=== PATIENT | male | born 1965 | race African-American/Black ===

== ENCOUNTER 2021-03-18 15:45 | Emergency (ER) | payer MEDICAID, SELFPAY ==
[2021-03-18 15:52] VITALS: BP 156/71; PULSE 50; RESP 18; TEMP 36.5; O2SAT 99; BMI 33.2
--- NOTE | 2021-03-18 16:23 | ED.GENADULT ---
HPI - General Adult General Chief complaint: General Medical Stated complaint: high blood preessure Time Seen by Provider: 03/18/21 16:10 Source: patient Mode of arrival: ambulatory Limitations: no limitations History of Present Illness HPI narrative: 55 y/o male with history of HTN on Toprol XL 25 mg per day presents to the ER for evaluation when he noted his BP to be 199/98 at home this morning. He states he took his BP before taking his medication. He had no chest pain, headache or vision changes at the time. He admits to mild nausea at the time. He has no swelling, SOB. He states his usual blood pressure is in the 150/80's and it has never been this high before. On arrival his BP is 156/71 and HR 50. No dizziness or lightheadedness. MD complaint: high blood pressure Onset (ago): hour(s) Location: abdomen (nausea) Radiation: non-radiation Severity: mild Severity scale (1-10): 3 Pain Consistency: now resolved Relieving factors: medication Exacerbating factors: none Associated symptoms: denies other symptoms Treatments prior to arrival: none Related Data Allergies Allergy/AdvReac Type Severity Reaction Status Date / Time No Known Allergies Allergy Verified 03/18/21 16:06 Review of Systems Review of Systems: Constitutional: No Fever, No Chills ENT/Mouth: No sore throat, No Rhinorrhea, No Swallowing Difficulty Eyes: No Eye Pain, No Swelling, No Redness Cardiovascular: No Chest Pain, No SOB, No Orthopnea, No Edema Respiratory: No Cough, No Sputum, No Wheezing, No dyspnea Gastrointestinal: + Nausea, No Vomiting, No Diarrhea, No abdominal Pain Genitourinary: No Dysuria, No Urinary Frequency, No Hematuria Musculoskeletal: No joint pain, No Myalgias Skin: No Skin Lesions, No rash Neuro: No Weakness, No Numbness, No Dizziness, No Headache Psych: No Anxiety/Panic, No Depression Heme/Lymph: No Bruising, No Lymphadenopathy Endocrine: No Polyuria, No Polydipsia PMFSH Past Medical History Medical History (Updated 03/18/21 @ 16:31 by MAYNOR Ballard) HTN (hypertension) Social History Social History Advance Directives: No Advance Directives Information Provided: No Physical Exam Vital Signs: Vital Signs: Last Vital Signs Temp 97.7 F 03/18/21 15:52 Pulse 50 03/18/21 15:52 Resp 18 03/18/21 15:52 BP 156/71 H 03/18/21 15:52 Pulse Ox 99 03/18/21 15:52 Body Mass Index 33.2 Appearance: Alert. Oriented X3. No acute distress. Eyes: Pupils equal, round and reactive to light. ENT: Pharynx normal. Neck: Normal inspection. Neck supple. CVS: Normal heart rate and rhythm. Pulses normal. Respiratory: No respiratory distress. Breath sounds normal. Abdomen: Soft and nontender. +BS x4 Skin: Skin warm and dry. Normal skin color. Normal skin turgor. No rashes. Extremities: No lower extremity edema. Neuro: Oriented X 3. No motor deficit. No sensory deficit. Steady gait. Course Course Course Narrative: 55 y/o male with known HTN on Toprol XL presenting with asymptomatic severe HTN at home. Significantly improved after taking his medication. He remains asymptomatic and examination is normal. He feels well and offers no complaints but admits to be anxious this morning when he took his BP. No need for further workup at this time. He is stable for discharge home with plan to f/u with his PCP in the office this week. He will monitor BP BID, AFTER taking his Toprol. Advised to come to the ER if he develops signs and symptoms of HTN emergency or any other concerning symptoms. Discharge Plan Discharge Clinical Impression: Hypertension Qualifiers: Hypertension type: essential hypertension Qualified Code(s): I10 - Essential (primary) hypertension Patient Disposition: Home, Self-Care Instructions: DASH Eating Plan (ED), Hypertension (ED) Additional Instructions: Your blood pressure today was much improved - 156/71. Recommend monitoring your blood pressure two times per day at home - once in the morning about 2 hours AFTER you take your medication and again before bed. Keep taking your Metoprolol as prescribed. Keep a record to bring to your doctor. Adhere to DASH diet - information provided. Follow up with your doctor this week. If you develop chest pain, severe headache, vision changes or have persistently elevated blood pressure despite taking your medications call 911 or come back to the ER for further evaluation. Interventions: ED Discharge Assessment Last Done: 03/18/21 16:35 Discharge Date/Time: 03/18/21 16:37
== END 2021-03-18 16:37 | disposition home or self-care (01) ==
PROVIDERS: Emergency Provider Internal Medicine; PCP Internal Medicine
DX: I10 Essential (primary) hypertension (principal); Z79.899 Other long term (current) drug therapy
CPT/HCPCS: 99283

== ENCOUNTER 2021-05-01 08:08 | Emergency (ER) | payer MEDICAID, SELFPAY ==
--- NOTE | ~2021-05-01 | XR_ITS ---
EXAMINATION: XR LUMBOSACRAL SPINE CLINICAL INFORMATION: Trauma COMPARISON: Previous x-ray August 2017 TECHNIQUE: Three views of the lumbosacral spine. FINDINGS: There is mild curvature of the lower lumbar spine to the left. Bone alignment is otherwise normal. No fracture or dislocation is seen. There is multilevel degenerative spondylosis. There is mild disc space narrowing at L4-L5. There is lower lumbar spine facet arthritis and there is mild atherosclerotic. XR/XR lumbar spine 2-3V IMPRESSION: Degenerative changes.
[2021-05-01 08:18] VITALS: BP 165/78; BP 168/88; PULSE 49; PULSE 54; RESP 18; TEMP 36.8; O2SAT 100; O2SAT 97
--- NOTE | 2021-05-01 10:01 | ED_ITS ---
HPI - General Adult General Chief complaint: Extremity Problem Stated complaint: back pain Time Seen by Provider: 05/01/21 09:55 Source: patient and EMS Mode of arrival: EMS Limitations: no limitations History of Present Illness HPI narrative: 55-year-old male with a past medical history of sciatica here with complaints of right sided back pain since yesterday. The patient tells me he lifted a heavy box and felt immediate pain in his low back. Since then he has had increasing pain which radiates down the right leg with intermittent tingling and numbness. he has a history of sciatica and states this feels s imilar. No numbness in the groin. No bowel or bladder incontinence. No fevers or chills. Took Motrin yesterday but has having continued pain today. He is having difficulty with ambulation due to pain Related Data Previous Rx's Medication Instructions Recorded cyclobenzaprine 10 mg PO TID PRN #10 tab 05/01/21 lidocaine [Lidoderm] 1 patch TOPICAL DAILY #15 ea 05/01/21 naproxen 500 mg PO BID PRN #20 tab 05/01/21 Allergies Allergy/AdvReac Type Severity Reaction Status Date / Time No Known Allergies Allergy Verified 03/18/21 16:06 Review of Systems Review of Systems: Yes all other systems are reviewed and are negative Constitutional: Constitutional: Reports no additional constitutional complaints, Denies body ache(s), Denies chills, Denies fever(s), Denies headache(s) and Denies weakness Eyes: Eyes: Reports no additional eye complaints and Denies change in vision ENT: Reports system reviewed and no additional complaints, except as documented, Denies dizziness, Denies headache(s), Denies nasal congestion, Denies nasal discharge and Denies neck pain Cardiovascular: Cardiovascular: Reports no additional cardiovascular complaints, Denies chest pain, Denies leg edema and Denies dyspnea Respiratory: Respiratory: Reports no additional respiratory complaints, Denies cough and Denies dyspnea Gastrointestinal: Gastrointestinal: Reports no additional gastrointestinal complaints, Denies abdominal pain, Denies diarrhea, Denies nausea and Denies vomiting Genitourinary: Genitourinary: Denies urinary incontinence Musculoskeletal: Musculoskeletal: Reports no additional musculoskeletal complaints, Reports back pain, Denies arthralgias, Denies joint swelling, Denies neck pain, Denies numbness and Reports tingling Integumentary/Breasts: Skin/Breast: Reports system reviewed and no additional complaints, except as docu and Denies rash Neurologic: Reports system reviewed and no additional complaints, except as documented, Denies Abnormal speech present, Denies dizziness, Denies headache(s), Denies numbness, Reports tingling and Denies weakness PMFSH Past Medical History Attestation statement: The following information was validated with the patient. Source: old records reviewed Medical History HTN (hypertension) Social History Social History Alcohol intake: never Patient Tobacco Use Status: Never used Tobacco Use of substances other than those prescribed or required for medical reasons: Yes Substance Use Type: Marijuana Advance Directives: No Advance Directives Information Provided: No Physical Exam Vital Signs: Vital Signs: Last Vital Signs Temp 98.2 F 05/01/21 10:57 Pulse 48 L 05/01/21 10:57 Resp 16 05/01/21 10:57 BP 149/85 H 05/01/21 10:57 Pulse Ox 98 05/01/21 10:57 Body Mass Index 30.0 Const: General: cooperative, healthy appearing, comfortable and no acute distress Orientation/consciousness: patient oriented x3 Limitations: no limitations HENMT: Head: Yes normal to inspection Ears: hearing grossly normal bilaterally General nose exam: Normal external nose present Face and sinus: Yes normal facial exam Mouth: Normal oral and palatal mucosa present Throat: Yes posterior oropharynx normal Eyes: General: appearance normal, both eyes and all related structures Pupils: Equal, round and reactive pupils present Neck: Neck: Yes normal visual inspection Chest: Chest palpation & inspection: normal inspection of the chest Resp: Effort & Inspection: normal respiratory effort Auscultation: clear to auscultation bilaterally Cardio: Rate: regular rate Rhythm: regular rhythm Peripheral pulses: Per ipheral pulses 2+ throughout GI: Inspection: Yes normal to inspection Palpation (GI): Soft to palpation and nontender Auscultation: normal bowel sounds Back/Spine/Pelvis: Other: midline tenderness over the lumbar spine with no step-offs or deformities. Pain over the soft tissue lumbar region on the right side with palpable muscle spasm. Pain is worsened with straight leg raise on the right side Thoracic/Lumbar Spine: thoracic and lumbar spine normal to inspection Skin: General skin exam: no rashes or lesions noted Neuro: General: patient oriented x3, no focal motor deficits, normal sensation to monofilament and Unable to assess gait Cranial nerves: Yes CN's II-XII intact bilaterally, Yes Equal, round and reactive pupils present, Yes Bilaterally intact EOM present, Yes Nystagmus not present, Yes Normal facial strength present and Yes Midline tongue present Cognition (Neuro): normal cognition Speech: No Abnormal speech present Gait exam (Neuro): Unable to assess gait Motor exam (neuro): 5/5 motor strength present throughout Sensory Exam: Normal double simultaneous stimulation for sensation Deep tendon reflexes (DTR's): Right patellar reflex intensity grade: 2+, Left patellar reflex intensity grade: 2+, Right ankle reflex intensity grade: 2+ and Left ankle reflex intensity grade: 2+ Coordination: [id number] test normal and [id number] test normal Extrem: General: Yes normal to inspection, Yes no pedal edema and Yes no calf tenderness Course Course Course Narrative: 55-year-old male here with acute on chronic lower back pain with radiation down the right leg after lifting heavy object yesterday now having difficulty with ambulating due to pain. On exam normal neurological exam. He does have tenderness over the mid lumbar spine with no obvious step- offs or deformities. Due to complaints of midline tenderness will check imaging. Will give analgesia and attempt ambulation trial - x-ray show degenerative changes but no bony abnormality. Patient was able to ambulate after a dose of Valium and Toradol in the emergency department is feeling much improved. Exam is consistent with sciatica. No red flag symptoms. No neurological deficits. Will discharge patient home with supportive care. Reviewed worrisome signs and symptoms and when to return to the emergency department. Comfortable discharge home. Medical Decision Making Medical Records Medical records reviewed: Yes I reviewed the patient's medical records. Lab Data Lab results reviewed: Yes I reviewed the patient's lab results. Imaging Data lumba rxray: Attestation: I personally reviewed and interpreted this imaging study as follows: Radiologist's impression: [address] [id number] ReportSigned Patient: Tish Szymanski#: [id number]: 1965Acct:[id number]/Sex: 55 / MADM Date: 05/01/21Loc: HO.EDAttending Dr: Ordering Physician: NANCY CASPER NP Date of Service: 05/01/21 Procedure(s): XR lumbar spine 2-3V Accession Number(s): [id number] cc: NANCY CASPER NP~ EXAMINATION: XR LUMBOSACRAL SPINE CLINICAL INFORMATION: Trauma COMPARISON: Previous x-ray August 2017 TECHNIQUE: Three views of the lumbosacral spine. FINDINGS: There is mild curvature of the lower lumbar spine to the left. Bone alignment is otherwise normal. No fracture or dislocation is seen. There is multilevel degenerative spondylosis. There is mild disc space narrowing at L4-L5. There is lower lumbar spine facet arthritis and there is mild atherosclerotic. XR/XR lumbar spine 2-3V IMPRESSION: Degenerative changes. Discharge Plan Discharge Clinical Impression: Sciatica Qualifiers: Laterality: right Qualified Code(s): M54.31 - Sciatica, right side Patient Disposition: Home, Self-Care Instructions: Sciatica (ED), Lower Back Exercises (ED) Additional Instructions: heat or ice Gentle stretching No heavy lifting or bending Follow-up with your primary care doctor Prescriptions: New cyclobenzaprine 10 mg tablet 10 mg PO TID PRN (Reason: muscle spasm) Qty: 10 RF: 0 naproxen 500 mg tablet 500 mg PO BID PRN (Reason: pain) Qty: 20 RF: 0 lidocaine [Lidoderm] 5 % adhesive patch,medicated 1 patch topical DAILY Qty: 15 RF: 0 Referrals: Keke Encinas MD [Primary Care Provider] - 2 days Interventions: ED Discharge Assessment Last Done: 05/01/21 12:04 Discharge Date/Time: 05/01/21 12:04
[2021-05-01 10:05] VITALS: BP 157/80; PULSE 52; RESP 16; TEMP 36; O2SAT 97
[2021-05-01] MEDS: diazePAM 5 MG TABLET PO (10:14)
[2021-05-01] MEDS: Lidocaine 4 % Patch ADH..PATCH 1 PATCH TRANSDERMA (10:14)
[2021-05-01] MEDS: Ketorolac Tromethamine 60 MG/2 ML VIAL IM (10:15)
[2021-05-01 10:57] VITALS: BP 149/85; PULSE 48; RESP 16; TEMP 36.8; O2SAT 98
== END 2021-05-01 12:04 | disposition home or self-care (01) ==
PROVIDERS: Emergency Provider Emergency Medicine Emergency Medical Services; PCP Internal Medicine
DX: M54.31 Sciatica, right side (principal)
CPT/HCPCS: 72100; 96372; 99284; J1885

== ENCOUNTER 2021-05-10 02:48 | Emergency (ER) | payer MEDICAID, SELFPAY ==
--- NOTE | ~2021-05-10 | XR_ITS ---
EXAMINATION: XR SHOULDER, LEFT CLINICAL INFORMATION: Fall COMPARISON: 11/22/2014 TECHNIQUE: Three views of the left shoulder. FINDINGS: Radiopaque anchors in the left humeral head. No fracture or dislocation. The glenohumeral joint is well aligned with osteophyte formation noted. This has progressed since 2014. Chronic irregularity of the acromioclavicular joint with corticated ossification seen. The visualized lung is clear. The visualized ribs are intact. XR/XR shoulder LT min 2V IMPRESSION: No acute fracture or malalignment. Chronic changes at the acromioclavicular and glenohumeral joints.
[2021-05-10 03:23] VITALS: BP 172/86; PULSE 52; RESP 20; TEMP 36; O2SAT 96; BMI 35.4
--- NOTE | 2021-05-10 03:43 | ED.UPPEXIN ---
HPI - Extremity Injury (Upper) General Chief Complaint: Fall Stated Complaint: Fallen on shoulder yesterday Time Seen by Provider: 05/10/21 03:43 Source: patient Mode of arrival: ambulatory Limitations: no limitations History of Present Illness HPI narrative: patient's history of left rotator cuff surgery in the past was trying to sit putting his left hand to the stool but slipped and fell yesterday since then pain in left shoulder has increased patient able to abduct left arm significant pain no other injuries no numbness or tingling Related Data Previous Rx's Medication Instructions Recorded cyclobenzaprine 10 mg PO TID PRN #10 tab 05/01/21 lidocaine [Lidoderm] 1 patch TOPICAL DAILY #15 ea 05/01/21 naproxen 500 mg PO BID PRN #20 tab 05/01/21 oxycodone-acetaminophen [Percocet] 1 tab PO Q6H PRN #20 tab 05/10/21 Allergies Allergy/AdvReac Type Severity Reaction Status Date / Time No Known Allergies Allergy Verified 03/18/21 16:06 Review of Systems Review of Systems: Yes all other systems are reviewed and are negative [facility] Past Medical History Medical History HTN (hypertension) Social History Social History Alcohol intake: never Patient Tobacco Use Status: Never used Tobacco Substance Use Type: Marijuana Advance Directives: No Advance Directives Information Provided: No Physical Exam Vital Signs: Vital Signs: Last Vital Signs Temp 96.8 F 05/10/21 03:23 Pulse 52 05/10/21 03:23 Resp 20 05/10/21 03:23 BP 172/86 H 05/10/21 03:23 Pulse Ox 96 05/10/21 03:23 Body Mass Index 35.4 Const: General: comfortable HENMT: Head: Yes normocephalic Extrem: Shoulder/upper arm images: 1. diffuse tenderness L rotator cuff increased on abduction and external rotation neurovascular intact MDM - Extremity Injury (Upper) MDM Narrative Medical decision making narrative: patient with left rotator cuff tendonitis x-ray negative for any fracture left arm sling was applied advised patient to follow with orthopedic for further evaluation including MRI Discharge Plan Discharge Clinical Impression: Rotator cuff injury Qualifiers: Encounter type: initial encounter Laterality: left Qualified Code(s): S46.002A - Unspecified injury of muscle(s) and tendon(s) of the rotator cuff of left shoulder, initial encounter Patient Disposition: Home, Self-Care Instructions: Rotator Cuff Injury (ED) Additional Instructions: Rest to the left shoulder. Apply ice. Wear sling. Pain medication as prescribed. Follow-up with Orthopedics Prescriptions: New oxycodone-acetaminophen [Percocet] 5-325 mg tablet 1 tab PO Q6H PRN (Reason: pain) Qty: 20 RF: 0 No Action cyclobenzaprine 10 mg tablet 10 mg PO TID PRN (Reason: muscle spasm) Qty: 10 RF: 0 naproxen 500 mg tablet 500 mg PO BID PRN (Reason: pain) Qty: 20 RF: 0 lidocaine [Lidoderm] 5 % adhesive patch,medicated 1 patch topical DAILY Qty: 15 RF: 0 Referrals: Cullen Emerson MD [Physician] - 1 week Interventions: ED Discharge Assessment Last Done: 05/10/21 04:41 Discharge Date/Time: 05/10/21 04:43
[2021-05-10] MEDS: oxyCODONE HCl Immed Release 5 MG TABLET 10 MG PO (04:07)
== END 2021-05-10 04:43 | disposition home or self-care (01) ==
PROVIDERS: Emergency Provider Internal Medicine
DX: S46.002A Unspecified injury of muscle(s) and tendon(s) of the rotator cuff of left shoulder, initial encounter (principal); I10 Essential (primary) hypertension; W01.0XXA Fall on same level from slipping, tripping and stumbling without subsequent striking against object, initial encounter; Y93.9 Activity, unspecified; Y92.9 Unspecified place or not applicable; Y99.9 Unspecified external cause status
CPT/HCPCS: 73030; 99283

== ENCOUNTER 2021-05-22 13:50 | Outpatient (REF) | payer MEDICAID, SELFPAY ==
--- NOTE | ~2021-05-22 | XR_ITS ---
EXAMINATION: XR HAND, RIGHT XR HAND, LEFT CLINICAL INFORMATION: Right and left hand pain. COMPARISON: None. TECHNIQUE: AP, oblique, and lateral views of the right and left hand. FINDINGS: Right Hand: Joint space narrowing with marginal osteophytes redemonstrated at the 3rd proximal interphalangeal joint. More mild degenerative arthritis throughout the interphalangeal joints, slightly progressed. No acute fracture or dislocation. No osseous erosion. Left Hand: Joint space narrowing with marginal osteophytes at the 2nd proximal interphalangeal joint. Additional small marginal osteophytes throughout the interphalangeal joints. Findings have slightly progressed when compared to the prior examination. No fracture or dislocation. No osseous erosion. XR/XR hand LT min 3V IMPRESSION: RIGHT HAND: Degenerative arthritis throughout the interphalangeal joints, most prominent at the 3rd proximal interphalangeal joint, slightly progressed. LEFT HAND: Degenerative arthritis throughout the interphalangeal joints, most prominent at the 2nd proximal interphalangeal joint, slightly progressed.
--- NOTE | ~2021-05-22 | XR_ITS ---
EXAMINATION: XR HAND, RIGHT XR HAND, LEFT CLINICAL INFORMATION: Right and left hand pain. COMPARISON: None. TECHNIQUE: AP, oblique, and lateral views of the right and left hand. FINDINGS: Right Hand: Joint space narrowing with marginal osteophytes redemonstrated at the 3rd proximal interphalangeal joint. More mild degenerative arthritis throughout the interphalangeal joints, slightly progressed. No acute fracture or dislocation. No osseous erosion. Left Hand: Joint space narrowing with marginal osteophytes at the 2nd proximal interphalangeal joint. Additional small marginal osteophytes throughout the interphalangeal joints. Findings have slightly progressed when compared to the prior examination. No fracture or dislocation. No osseous erosion. XR/XR hand RT min 3V IMPRESSION: RIGHT HAND: Degenerative arthritis throughout the interphalangeal joints, most prominent at the 3rd proximal interphalangeal joint, slightly progressed. LEFT HAND: Degenerative arthritis throughout the interphalangeal joints, most prominent at the 2nd proximal interphalangeal joint, slightly progressed.
[2021-05-22 15:27] LABS: MANUAL DIFF FLAG NO
[2021-05-22 15:30] LABS: Basophils Percent Auto 0.4 % (0-2); Eosinophils Absolute Auto 0.1 X10*3/uL (0.0-0.4); Eosinophils Percent Auto 1.4 % (0-4); Hematocrit 45.6 % (42-52); Hemoglobin 15.2 g/dl (14.0-18.0); Imm Gran Abs Auto 0.02 X10*3/uL (0.00-0.03); Imm Gran Pct Auto 0.3 % (0.0-0.4); Lymphocytes Absolute Auto 1.8 X10*3/uL (1.2-4.9); Lymphocytes Percent Auto 23.3 % (20-40); Mean Corpuscular HGB Conc 33.3 g/dl (31.0-36.0); Mean Corpuscular Hemoglobin 32.1 pg (27.0-33.0); Mean Corpuscular Volume 96.4 fL (80-98); Mean Platelet Volume 10.7 fL (9.4-12.4); Monocytes Absolute Auto 0.7 X10*3/uL (0.1-1.2); Monocytes Percent Auto 8.4 % (2-11); Neutrophils Absolute Auto 5.2 X10*3/uL (2.0-8.3); Neutrophils Percent Auto 66.2 % (45-73); Platelet Count 203 X10*3/uL (160-400); Red Blood Count 4.73 X10*6/uL (4.60-5.80); Red Cell Distribution Width 12.6 % (11.0-16.0); White Blood Count 7.9 X10*3/uL (4.8-10.8)
[2021-05-22 15:51] LABS: Alanine Aminotransferase 66 U/L (0-40); Albumin Level 4.2 g/dL (3.5-5.0); Alkaline Phosphatase 98 U/L (39-117); Anion Gap 12 (12-20); Aspartate Amino Transferase 21 U/L (5-37); Bilirubin Total 0.7 mg/dL (0.0-1.0); Blood Urea Nitrogen 14 mg/dL (9-16); C Reactive Protein 0.28 mg/dL (< or = 0.50); Calcium 9.6 mg/dL (8.4-10.2); Carbon Dioxide 28 mmol/L (22-29); Chloride 103 mmol/L (96-108); Estimated Glomerular Filt Rate > 60; Glucose Random 97 mg/dL (60-115); Potassium 4.5 mmol/L (3.3-5.1); Sodium 138 mmol/L (135-145); Total Protein 7.2 g/dL (6.5-8.0)
[2021-05-22 16:01] LABS: Rheumatoid Factor 19.7 IU/mL (<15.0)
[2021-05-22 16:10] LABS: Erythrocyte Sedimentation Rate 2 MM/HR (0-15)
[2021-05-23 16:46] LABS: Cyclic Citrullinated Peptide <16 UNITS
== END 2021-05-22 13:51 | disposition home or self-care (01) ==
LOC: HO.XRAY 13:50
PROVIDERS: PCP Internal Medicine; Visit Provider Student in an Organized Health Care Education/Training Program
DX: M79.641 Pain in right hand (principal); M79.642 Pain in left hand; M25.50 Pain in unspecified joint; Z79.899 Other long term (current) drug therapy; Z79.891 Long term (current) use of opiate analgesic
CPT/HCPCS: 36415; 73130; 80053; 85025; 85652; 86140; 86200; 86431; 99202

== ENCOUNTER 2021-05-24 08:07 | Outpatient (REF) | payer MEDICAID, SELFPAY | END 2021-05-24 08:08 | disposition home or self-care (01) | LOC: HO.HOSX 08:07 | PROVIDERS: Visit Provider Physician Assistant | DX: Z13.89 Encounter for screening for other disorder (principal) ==

== ENCOUNTER → 2021-05-25 07:54 | Outpatient (BNVA) | payer MEDICAID, SELFPAY | PROVIDERS: Visit Provider Orthopaedic Surgery | DX: S49.92XA Unspecified injury of left shoulder and upper arm, initial encounter (principal); M75.102 Unspecified rotator cuff tear or rupture of left shoulder, not specified as traumatic; M12.812 Other specific arthropathies, not elsewhere classified, left shoulder | CPT/HCPCS: 20610; 99202; J1040 ==

== ENCOUNTER 2021-06-06 07:47 | Outpatient (REF) | payer MEDICAID, SELFPAY | END 2021-06-06 07:48 | disposition home or self-care (01) | LOC: HO.HOSX 07:47 | PROVIDERS: Visit Provider Orthopaedic Surgery | DX: Z13.89 Encounter for screening for other disorder (principal) ==

== ENCOUNTER → 2021-08-27 10:18 | Outpatient (BNVA) | payer MEDICAID, SELFPAY | PROVIDERS: PCP Internal Medicine; Visit Provider Nurse Practitioner Family | DX: M79.641 Pain in right hand (principal); M79.642 Pain in left hand | CPT/HCPCS: 99212 ==

== ENCOUNTER 2021-08-28 07:28 | Outpatient (REF) | payer MEDICAID, SELFPAY ==
[2021-08-28 08:50] LABS: Alanine Aminotransferase 17 U/L (0-40); Albumin Level 3.9 g/dL (3.5-5.0); Alkaline Phosphatase 95 U/L (39-117); Anion Gap 11 (12-20); Aspartate Amino Transferase 13 U/L (5-37); Bilirubin Total 0.4 mg/dL (0.0-1.0); Blood Urea Nitrogen 16 mg/dL (9-16); Calcium 9.1 mg/dL (8.4-10.2); Carbon Dioxide 25 mmol/L (22-29); Chloride 106 mmol/L (96-108); Estimated Glomerular Filt Rate > 60; Glucose Random 109 mg/dL (60-115); Potassium 4.3 mmol/L (3.3-5.1); Sodium 138 mmol/L (135-145); Total Protein 6.7 g/dL (6.5-8.0)
[2021-08-28 09:15] LABS: HBc Num1 0.08 S/CO (0.00-0.79); HBsAGNum1 0.15 S/CO (0.00-0.99); Hepatitis B Core Antibody Nonreactive (Nonreactive); Hepatitis B Surface Antigen Negative (Negative); ~Hepatitis B Surface Antibody NONREACTIVE (Nonreactive)
[2021-08-28 14:15] LABS: ~HepC Num1 0.06 S/CO (0.00-0.79); ~Hepatitis C Antibody Nonreactive (Nonreactive)
[2021-08-29 08:21] LABS: Hepatitis A Antibody IgM 0.57 Index (0-0.79); ~Hepatitis A Antibody IgM Nonreactive (Nonreactive)
[2021-08-30 16:00] LABS: TS Negative Control Passed; TS Panel A 4; TS Panel B 1; TS Positive Control Passed; TSpotTB Negative (Negative)
== END 2021-08-28 07:29 | disposition home or self-care (01) ==
LOC: HO.LAB 07:28
PROVIDERS: PCP Internal Medicine; Visit Provider Nurse Practitioner Family
DX: Z01.84 Encounter for antibody response examination (principal); Z11.1 Encounter for screening for respiratory tuberculosis; Z11.59 Encounter for screening for other viral diseases; M79.641 Pain in right hand; M79.642 Pain in left hand; R79.89 Other specified abnormal findings of blood chemistry
CPT/HCPCS: 36415; 80053; 86481; 86704; 86706; 86709; 86803; 87340

== ENCOUNTER 2021-09-12 15:43 | Outpatient (REF) | payer MEDICAID, SELFPAY ==
--- NOTE | ~2021-09-12 | MR_ITS ---
EXAMINATION: MRI HAND WITHOUT AND WITH CONTRAST, RIGHT CLINICAL INFORMATION: Finger swelling and pain. COMPARISON: Most recent right hand radiographs dated 05/22/2021. TECHNIQUE: Multisequence MR imaging of the right hand was performed before and after the administration of 10 mL Gadavist IV contrast on a high-field strength scanner. FINDINGS: BONE: No marrow edema. No evidence of acute osseous injury. No fracture or dislocation. No osseous erosion or post contrast enhancement. Articular cartilage loss with joint space narrowing and marginal osteophytes at the 1st metacarpophalangeal joint as well as scattered throughout the interphalangeal joints. Findings are similar when compared to the prior radiographs. MUSCLES/TENDONS: Mild fluid within the 3rd, 4th, and 5th flexor tendon sheaths as well as the proximal aspect of the extensor digitorum tendon sheath, consistent with mild tenosynovitis. No measurable tendon defect. LIGAMENTS: The collateral ligaments are grossly intact. SOFT TISSUES: No abnormal soft tissue mass or fluid collection. Mild dorsal subcutaneous edema. MR/MR hand RT wo/w con IMPRESSION: 1. 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 No osseous erosion or abnormal osseous enhancement. 2. Mild tenosynovitis within the 3rd, 4th, and 5th flexor tendons as well as the proximal aspect of the extensor digitorum tendons. No measurable tendon defect. 3. Mild dorsal subcutaneous edema.
--- NOTE | ~2021-09-12 | MR_ITS ---
EXAMINATION: MR HAND WITHOUT AND WITH CONTRAST, LEFT CLINICAL INFORMATION: Left hand pain and swelling. COMPARISON: Most recent left hand radiographs dated 05/22/2021. TECHNIQUE: Multisequence MR imaging of the left hand was performed before and after the administration of 10 mL Gadavist IV contrast on a high-field strength scanner. FINDINGS: BONE: No abnormal marrow signal. No marrow edema or postcontrast enhancement. No fracture or dislocation. Articular cartilage loss with small marginal osteophytes at the first metacarpophalangeal joint as well as scattered throughout the interphalangeal joints. No osseous erosion. MUSCLES/TENDONS: Mild fluid within the second and third flexor tendon sheaths, consistent with mild tenosynovitis. No measurable tendon defect. LIGAMENTS: The collateral ligaments are intact. SOFT TISSUES: Mild dorsal subcutaneous edema. No abnormal soft tissue mass or fluid collection. MR/MR hand LT wo/w con IMPRESSION: 1. Mild osteoarthritis at the first metacarpophalangeal joint as well as scattered throughout the interphalangeal joints. No osseous erosion or abnormal marrow enhancement. 2. Mild tenosynovitis of the second and third flexor tendons. No measurable tendon defect. 3. Mild dorsal subcutaneous edema.
== END 2021-09-12 15:44 | disposition home or self-care (01) ==
LOC: HO.MRI 15:43
PROVIDERS: Visit Provider Nurse Practitioner Family
DX: M79.641 Pain in right hand (principal); M79.642 Pain in left hand; R76.8 Other specified abnormal immunological findings in serum
CPT/HCPCS: 73220; A9585

== ENCOUNTER 2021-09-16 18:33 | Emergency (ER) | payer MEDICAID, SELFPAY ==
--- NOTE | 2021-09-16 18:41 | ECG_ITS ---
Test Reason : ETOH Blood Pressure : / mmHG Vent. Rate : 064 BPM Atrial Rate : 064 BPM P-R Int : 226 ms QRS Dur : 100 ms QT Int : 380 ms P-R-T Axes : 048 -24 -03 degrees QTc Int : 392 ms Sinus rhythm with 1st degree A-V block Otherwise normal ECG When compared with ECG of 27-JAN-2020 00:52, No significant change was found Referred By: Chelsie Caldera Electronically Signed By:CARLOS BUCHANAN MD
--- NOTE | 2021-09-16 18:42 | ED.WEAKNESS ---
HPI - Weakness General Chief complaint: ETOH/Substance Use Stated complaint: etoh Time Seen by Provider: 09/16/21 18:41 Source: patient and EMS Mode of arrival: EMS Limitations: no limitations History of Present Illness HPI Narrative: sleepy ? drank after work today patient did not eat and was watching the game. He also smoked THC. EMS noted he vomited x 1 and then woke up more he has no complaints now i think I had a panic attack MD Complaint: lack of energy (?panic attack) Onset (ago): hour(s) (1) Duration: improved Migration: none Severity: moderate Relieving factors: rest Exacerbating factors: other (not eating) Context: other (drank beer and smoked THC after work did not eat) Associated symptoms: nausea/vomiting (x1) Related Data Home Medications Medication Instructions Recorded Confirmed lisinopril 5 mg tablet 5 mg PO DAILY 05/22/21 05/22/21 metoprolol succinate 25 mg 25 mg PO DAILY 05/22/21 05/22/21 tablet,extended release 24 hr Previous Rx's Medication Instructions Recorded cyclobenzaprine 10 mg tablet 10 mg PO TID PRN #10 tab 05/01/21 lidocaine 5 % topical patch 1 patch TOPICAL DAILY #15 ea 05/01/21 (Lidoderm) naproxen 500 mg tablet 500 mg PO BID PRN #20 tab 05/01/21 ibuprofen 800 mg tablet 800 mg PO Q8H #90 tab 05/25/21 Allergies Allergy/AdvReac Type Severity Reaction Status Date / Time No Known Allergies Allergy Verified 08/27/21 10:35 Review of Systems Review of Systems: Constitutional : No Weight loss, No Fever, No Chills ENT/Mouth : No sore throat, No Rhinorrhea Eyes: No Swelling, No Redness Cardiovascular : No Chest Pain, No SOB, NoEdema Respiratory : No Cough, No Sputum, No Wheezing Gastrointestinal : Positive Nausea, Positive Vomiting, no Diarrhea, no abdominal Pain, No Hematochezia, No Melena Genitourinary : No Dysuria, No Urinary Frequency, No Hematuria, No Urgency Musculoskeletal : No joint pain, No Myalgias, No Joint Swelling Skin : No Skin Lesions, No rash Neuro : No Weakness, No Numbness, No Dizziness, No Headache Psych : pos Anxiety/Panic, No Depression Heme/Lymph: No Bruising, No Lymphadenopathy Endocrine : No Polyuria, No Polydipsia All other systems reviewed and are negative. [facility] Past Medical History Attestation statement: The following information was validated with the patient. Medical History HTN (hypertension) Surgical History H/O knee surgery H/O shoulder surgery Family History Family History Mother HTN (hypertension) Sister Esophagus cancer Social History Social History Alcohol intake: current Patient Tobacco Use Status: Never used Tobacco Use of substances other than those prescribed or required for medical reasons: No Substance Use Type: Marijuana Advance Directives: No Advance Directives Information Provided: No Current occupational status: unemployed Current occupation: rt handed Physical Exam Vital Signs: Vital Signs: Last Vital Signs Temp 98.9 F 09/16/21 18:44 Pulse 61 09/16/21 19:14 Resp 16 09/16/21 19:14 BP 113/69 09/16/21 19:14 Pulse Ox 98 09/16/21 19:14 Body Mass Index 35.9 Appearance: Alert. Oriented X3. No acute distress. Eyes: Pupils equal, round and reactive to light. ENT: Pharynx normal. Neck: Normal inspection. Neck supple. CVS: Normal heart rate and rhythm. Pulses normal. Respiratory: No respiratory distress. Breath sounds normal. Abdomen: Soft and nontender. Skin: Skin warm and dry. Normal skin color. Normal skin turgor. Extremities: No lower extremity edema. No calf ttp Neuro: Oriented X 3. No motor deficit. No sensory deficit. 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 He was watching the game felt like he was panicking and had nausea - his family felt he was sleepy and called 911. He feels nauseated at this time. No neuro findings. No CP/SOB. I suspect that he feels this way due to his drinking and THC use after not eating - will obtain EKG and basic labs. Lab Data Result diagrams: 09/16/21 19:09 09/16/21 19:09 Labs: Lab Results 09/16/21 09/16/21 09/16/21 Range/Units 19:09 19:09 19:09 WBC 7.1 (4.8-10.8) X10*3/uL RBC 4.69 (4.60-5.80) X10*6/uL Hgb 15.1 (14.0-18.0) g/dl Hct 44.7 (42.0-52.0) % MCV 95.3 (80.0-98.0) fL MCH 32.2 (27.0-33.0) pg MCHC 33.8 (31.0-36.0) g/dl RDW 13.1 (11.0-16.0) % Plt Count 192 (160-400) X10*3/uL MPV 9.1 L (9.4-12.4) fL Immature Gran % (Auto) 0.3 (0.0-0.4) % Neut % (Auto) 73.2 H (45-73) % Lymph % (Auto) 18.8 L (20-40) % Yell % (Auto) 5.5 (2-11) % Eos % (Auto) 1.8 (0-4) % Baso % (Auto) 0.4 (0-2) % Lymph # (Auto) 1.3 (1.2-4.9) X10*3/uL Yell # (Auto) 0.4 (0.1-1.2) X10*3/uL Eos # (Auto) 0.1 (0.0-0.4) X10*3/uL Baso # (Auto) 0.0 (0.0-0.2) X10*3/uL Abs Immat Gran (auto) 0.02 (0.00-0.03) X10*3/uL Absolute Neuts (auto) 5.2 (2.0-8.3) x10*3/uL Absolute Nucleated RBC 0.000 (0.0-0.012) X10*3/uL Nucleated RBC % (auto) 0.0 (0.0-0.2) /100WBC Sodium 140 (135-145) mmol/L Potassium 3.8 (3.3-5.1) mmol/L Chloride 106 (96-108) mmol/L Carbon Dioxide 25 (22-29) mmol/L Anion Gap 13 (12-20) BUN 13 (9-16) mg/dL Creatinine 0.84 (0.5-1.4) mg/dL Estim Creat Clear Calc 131.4 Estimated GFR > 60 Random Glucose 92 (60-115) mg/dL Calcium 8.7 (8.4-10.2) mg/dL Magnesium 2.2 (1.6-2.6) mg/dL Total Bilirubin 0.3 (0.0-1.0) mg/dL Direct Bilirubin 0.2 (0.0-0.5) mg/dL AST 17 (5-37) U/L ALT 33 (0-40) U/L Alkaline Phosphatase 85 (39-117) U/L Total Protein 6.9 (6.5-8.0) g/dL Albumin 4.1 (3.5-5.0) g/dL Ethyl Alcohol mg/dL COVID-19 (DANICA) Negative (Negative) COVID-19 Clin Com See Note 09/16/21 Range/Units 19:09 WBC (4.8-10.8) X10*3/uL RBC (4.60-5.80) X10*6/uL Hgb (14.0-18.0) g/dl Hct (42.0-52.0) % MCV (80.0-98.0) fL MCH (27.0-33.0) pg MCHC (31.0-36.0) g/dl RDW (11.0-16.0) % Plt Count (160-400) X10*3/uL MPV (9.4-12.4) fL Immature Gran % (Auto) (0.0-0.4) % Neut % (Auto) (45-73) % Lymph % (Auto) (20-40) % Yell % (Auto) (2-11) % Eos % (Auto) (0-4) % Baso % (Auto) (0-2) % Lymph # (Auto) (1.2-4.9) X10*3/uL Yell # (Auto) (0.1-1.2) X10*3/uL Eos # (Auto) (0.0-0.4) X10*3/uL Baso # (Auto) (0.0-0.2) X10*3/uL Abs Immat Gran (auto) (0.00-0.03) X10*3/uL Absolute Neuts (auto) (2.0-8.3) x10*3/uL Absolute Nucleated RBC (0.0-0.012) X10*3/uL Nucleated RBC % (auto) (0.0-0.2) /100WBC Sodium (135-145) mmol/L Potassium (3.3-5.1) mmol/L Chloride (96-108) mmol/L Carbon Dioxide (22-29) mmol/L Anion Gap (12-20) BUN (9-16) mg/dL Creatinine (0.5-1.4) mg/dL Estim Creat Clear Calc Estimated GFR Random Glucose (60-115) mg/dL Calcium (8.4-10.2) mg/dL Magnesium (1.6-2.6) mg/dL Total Bilirubin (0.0-1.0) mg/dL Direct Bilirubin (0.0-0.5) mg/dL AST (5-37) U/L ALT (0-40) U/L Alkaline Phosphatase (39-117) U/L Total Protein (6.5-8.0) g/dL Albumin (3.5-5.0) g/dL Ethyl Alcohol 224 mg/dL COVID-19 (DANICA) (Negative) COVID-19 Clin Com ECG Data Attestation: I personally reviewed and interpreted this ECG as follows: ECG interpretation date: 09/16/21 ECG interpretation time: 19:02 Interpretation: Rate: 64 Rhythm: NSR with 1st degree AVB [place]: left Normal P waves. Normal RAMILA. Normal QRS complex. ST T wave : normal no TOY qTC: normal prior studies: no acute ischemia The study has been interpreted contemporaneously by me. . Discharge Plan Discharge Clinical Impression: Alcoholic intoxication Patient Disposition: Home, Self-Care Instructions: Alcohol Intoxication (ED) Additional Instructions: return to ED for any worsening symptoms or concerns Prescriptions: No Action cyclobenzaprine 10 mg tablet 10 mg PO TID PRN (Reason: muscle spasm) Qty: 10 RF: 0 naproxen 500 mg tablet 500 mg PO BID PRN (Reason: pain) Qty: 20 RF: 0 lidocaine [Lidoderm] 5 % adhesive patch,medicated 1 patch topical DAILY Qty: 15 RF: 0 lisinopril 5 mg tablet 5 mg PO DAILY RF: 0 metoprolol succinate 25 mg tablet extended release 24 hr 25 mg PO DAILY RF: 0 ibuprofen 800 mg tablet 800 mg PO Q8H Qty: 90 RF: 3 Stand Alone Forms: Work/School Release
[2021-09-16 18:44] VITALS: BP 131/79; BP 132/68; PULSE 62; PULSE 65; RESP 18; TEMP 37.2; O2SAT 93; O2SAT 94; BMI 35.9
[2021-09-16 19:14] VITALS: BP 113/69; PULSE 61; RESP 16; O2SAT 98
[2021-09-16 19:14] LABS: MANUAL DIFF FLAG NO
[2021-09-16 19:16] LABS: Basophils Percent Auto 0.4 % (0-2); Eosinophils Absolute Auto 0.1 X10*3/uL (0.0-0.4); Eosinophils Percent Auto 1.8 % (0-4); Hematocrit 44.7 % (42.0-52.0); Hemoglobin 15.1 g/dl (14.0-18.0); Imm Gran Abs Auto 0.02 X10*3/uL (0.00-0.03); Imm Gran Pct Auto 0.3 % (0.0-0.4); Lymphocytes Absolute Auto 1.3 X10*3/uL (1.2-4.9); Lymphocytes Percent Auto 18.8 % (20-40); Mean Corpuscular HGB Conc 33.8 g/dl (31.0-36.0); Mean Corpuscular Hemoglobin 32.2 pg (27.0-33.0); Mean Corpuscular Volume 95.3 fL (80.0-98.0); Mean Platelet Volume 9.1 fL (9.4-12.4); Monocytes Absolute Auto 0.4 X10*3/uL (0.1-1.2); Monocytes Percent Auto 5.5 % (2-11); Neutrophils Absolute Auto 5.2 x10*3/uL (2.0-8.3); Neutrophils Percent Auto 73.2 % (45-73); Platelet Count 192 X10*3/uL (160-400); Red Blood Count 4.69 X10*6/uL (4.60-5.80); Red Cell Distribution Width 13.1 % (11.0-16.0); White Blood Count 7.1 X10*3/uL (4.8-10.8)
[2021-09-16] MEDS: Ondansetron ODT 4 MG TAB.RAPDIS TRANSLINGU (19:17)
[2021-09-16 19:31] LABS: COVID-19 Test Negative (Negative)
[2021-09-16 19:35] LABS: Ethanol 224 mg/dL
[2021-09-16 19:39] LABS: Alanine Aminotransferase 33 U/L (0-40); Albumin Level 4.1 g/dL (3.5-5.0); Alkaline Phosphatase 85 U/L (39-117); Anion Gap 13 (12-20); Aspartate Amino Transferase 17 U/L (5-37); Bilirubin Direct 0.2 mg/dL (0.0-0.5); Bilirubin Total 0.3 mg/dL (0.0-1.0); Blood Urea Nitrogen 13 mg/dL (9-16); Calcium 8.7 mg/dL (8.4-10.2); Carbon Dioxide 25 mmol/L (22-29); Chloride 106 mmol/L (96-108); Creatinine Clr Calc Pharmacy 131.4; Estimated Glomerular Filt Rate > 60; Glucose Random 92 mg/dL (60-115); Magnesium 2.2 mg/dL (1.6-2.6); Potassium 3.8 mmol/L (3.3-5.1); Sodium 140 mmol/L (135-145); Total Protein 6.9 g/dL (6.5-8.0)
== END 2021-09-16 19:58 | disposition home or self-care (01) ==
PROVIDERS: Emergency Provider Emergency Medicine
DX: F10.129 Alcohol abuse with intoxication, unspecified (principal); Y90.7 Blood alcohol level of 200-239 mg/100 ml; F12.90 Cannabis use, unspecified, uncomplicated; I10 Essential (primary) hypertension; Z20.822 Contact with and (suspected) exposure to COVID-19
CPT/HCPCS: 36415; 80048; 80076; 82077; 83735; 85025; 87635; 93005; 99283; 99285

== ENCOUNTER → 2021-11-14 07:39 | Outpatient (BNVA) | payer MEDICAID, SELFPAY | PROVIDERS: PCP Internal Medicine; Visit Provider Nurse Practitioner Family | DX: M06.9 Rheumatoid arthritis, unspecified (principal) | CPT/HCPCS: 99212 ==

== ENCOUNTER → 2021-11-20 08:56 | Outpatient (BNVA) | payer MEDICAID, SELFPAY | PROVIDERS: PCP Internal Medicine; Visit Provider Nurse Practitioner Family ==

== ENCOUNTER 2022-01-08 08:38 | Outpatient (REF) | payer MEDICAID, SELFPAY ==
[2022-01-08 09:05] LABS: MANUAL DIFF FLAG NO
[2022-01-08 09:14] LABS: Basophils Percent Auto 0.5 % (0-2); Eosinophils Absolute Auto 0.1 X10*3/uL (0.0-0.4); Eosinophils Percent Auto 1.4 % (0-4); Hematocrit 45.2 % (42.0-52.0); Imm Gran Abs Auto 0.03 X10*3/uL (0.00-0.03); Imm Gran Pct Auto 0.5 % (0.0-0.4); Lymphocytes Absolute Auto 1.6 X10*3/uL (1.2-4.9); Lymphocytes Percent Auto 28.4 % (20-40); Mean Corpuscular HGB Conc 33.2 g/dl (31.0-36.0); Mean Corpuscular Hemoglobin 32.2 pg (27.0-33.0); Mean Platelet Volume 9.3 fL (9.4-12.4); Monocytes Absolute Auto 0.5 X10*3/uL (0.1-1.2); Monocytes Percent Auto 9.2 % (2-11); Neutrophils Absolute Auto 3.4 x10*3/uL (2.0-8.3); Platelet Count 220 X10*3/uL (160-400); Red Blood Count 4.66 X10*6/uL (4.60-5.80); White Blood Count 5.6 X10*3/uL (4.8-10.8)
[2022-01-08 09:40] LABS: Alanine Aminotransferase 18 U/L (0-40); Albumin Level 3.8 g/dL (3.5-5.0); Alkaline Phosphatase 79 U/L (39-117); Anion Gap 9 (12-20); Aspartate Amino Transferase 14 U/L (5-37); Bilirubin Total 0.5 mg/dL (0.0-1.0); Blood Urea Nitrogen 12 mg/dL (9-16); C Reactive Protein 0.25 mg/dL (< or = 0.50); Calcium 9.1 mg/dL (8.4-10.2); Carbon Dioxide 27 mmol/L (22-29); Chloride 107 mmol/L (96-108); Estimated Glomerular Filt Rate > 60; Glucose Random 106 mg/dL (60-115); Potassium 4.2 mmol/L (3.3-5.1); Sodium 139 mmol/L (135-145); Total Protein 6.5 g/dL (6.5-8.0)
[2022-01-08 09:50] LABS: Erythrocyte Sedimentation Rate 2 MM/HR (0-15)
== END 2022-01-08 08:39 | disposition home or self-care (01) ==
LOC: HO.LAB 08:38
PROVIDERS: PCP Internal Medicine; Visit Provider Nurse Practitioner Family
DX: R76.8 Other specified abnormal immunological findings in serum (principal)
CPT/HCPCS: 36415; 80053; 85025; 85652; 86140

== ENCOUNTER → 2022-01-17 09:58 | Outpatient (BNVA) | payer MEDICAID, SELFPAY | PROVIDERS: PCP Internal Medicine; Visit Provider Nurse Practitioner Family | DX: M06.9 Rheumatoid arthritis, unspecified (principal) | CPT/HCPCS: 99212 ==

== ENCOUNTER → 2022-03-27 09:44 | Outpatient (BNVA) | payer MEDICAID, SELFPAY | PROVIDERS: PCP Internal Medicine; Visit Provider Nurse Practitioner Family | DX: M06.9 Rheumatoid arthritis, unspecified (principal); Z79.899 Other long term (current) drug therapy | CPT/HCPCS: 99212 ==

== ENCOUNTER 2022-09-03 08:30 | Emergency (ER) | payer MEDICAID, SELFPAY ==
--- NOTE | 2022-09-03 | ECG_ITS ---
Test Reason : chest pain Blood Pressure : / mmHG Vent. Rate : 057 BPM Atrial Rate : 057 BPM P-R Int : 190 ms QRS Dur : 098 ms QT Int : 396 ms P-R-T Axes : 042 -22 003 degrees QTc Int : 385 ms Sinus bradycardia Otherwise normal ECG When compared with ECG of 16-SEP-2021 18:59, NV interval has decreased Referred By: Generic ED Physician Electronically Signed By:CARLOS BUCHANAN MD
--- NOTE | ~2022-09-03 | XR_ITS ---
EXAMINATION: XR CHEST CLINICAL INFORMATION: Chest pain. COMPARISON: 01/27/2020 portable chest radiograph. TECHNIQUE: Frontal view of the chest was obtained. FINDINGS: No significant abnormality is noted involving the heart, lungs, mediastinum, bony thorax or soft tissues. XR/XR chest 1V IMPRESSION: No acute cardiopulmonary process.
--- NOTE | ~2022-09-03 | CT_ITS ---
EXAMINATION: CT ANGIOGRAM OF THE CHEST WITH AND WITHOUT CONTRAST (CT PULMONARY ANGIOGRAM FOR PE) CLINICAL INFORMATION: Reason for Exam Elevated D-dimer Pleuritic chest COMPARISON: None TECHNIQUE: Prior to contrast administration, noncontrast localization images were obtained. Subsequently, multidetector volumetric imaging was performed from the thoracic inlet to below the diaphragms following the administration of 80 mL Omnipaque 350 intravenous contrast. No contrast reaction reported Sagittal, coronal, and MIP oblique sagittal reformatted images were obtained on the CT workstation, uploaded to PACS, and reviewed. This CT examination was performed using dose optimization techniques as appropriate, variously including the following: *Automated exposure control *Adjustment of mA and/or kV according to patient size (this includes techniques or standardized protocols for targeted exams where dose is matched to indication/reason for exam; i.e. extremities or head) *Use of iterative reconstruction technique Total exam dose-length product 542 mGy-cm FINDINGS: QUALITY OF STUDY/CONTRAST BOLUS: Satisfactory. PULMONARY ARTERIES: No central or segmental pulmonary emboli. THORACIC AORTA: Nonopacified. LUNG: No focal consolidation, nodules or masses. PLEURA: No pleural effusion or pneumothorax. MEDIASTINUM: Normal heart size. No pericardial effusion. No hilar or mediastinal lymphadenopathy. No evidence of septal bowing or right heart strain. CHEST WALL/AXILLA: No axillary or internal mammary lymphadenopathy. OSSEOUS STRUCTURES: Multilevel spondylitic change. No fracture. UPPER ABDOMEN: Unremarkable. No reflux of contrast into the hepatic veins to suggest elevated right heart pressures. CT/CT angio chest PE protocol IMPRESSION: No acute PE. No active disease. VTE: negative
[2022-09-03 08:47] VITALS: BP 160/70; PULSE 57; RESP 16; TEMP 36.8; O2SAT 97; BMI 35.4
--- NOTE | 2022-09-03 08:48 | ED.GENADULT ---
HPI - General Adult General Chief complaint: Chest Pain Stated complaint: CP Time Seen by Provider: 09/03/22 08:46 Source: patient Mode of arrival: ambulatory Limitations: no limitations History of Present Illness HPI narrative: 56 year old male with a PMH of poorly controlled HTN on Metoprolol, presenting to the ED c/o left sided chest wall pain that started abruptly yesterday night after lifting his right arm. He describes the pain as intermittent, exacerbated with lying on left side, and deep inspiration. Also reports cough. States not taking his blood pressure medication for over a month due to it making him drowsy. Denies SOB, headache, edema, recent travel, fever, abdominal pain, nausea, vomiting Onset (ago): day(s) (1) Location: chest Radiation: non-radiation Severity: moderate Severity scale (1-10): 5 Quality: other (Intermittent) Pain Consistency: intermittent Exacerbating factors: movement and other (Inspiration) Related Data Home Medications Medication Instructions Recorded Confirmed lisinopril 5 mg tablet 5 mg PO DAILY 05/22/21 11/14/21 metoprolol succinate 25 mg 25 mg PO DAILY 05/22/21 11/14/21 tablet,extended release 24 hr Previous Rx's Medication Instructions Recorded cyclobenzaprine 10 mg tablet 10 mg PO TID PRN muscle spasm #10 05/01/21 tabs lidocaine 5 % topical patch 1 patch topical DAILY #15 ea 05/01/21 (Lidoderm) naproxen 500 mg tablet 500 mg PO BID PRN pain #20 tabs 05/01/21 ibuprofen 800 mg tablet 800 mg PO Q8H #90 tabs 05/25/21 adalimumab 40 mg/0.4 mL 40 mg (0.4 mL) subcut Q2W #2 ea 06/24/22 subcutaneous pen kit (Humira(CF) Pen) naproxen 500 mg tablet 500 mg PO BID PRN pain 10 days #20 09/03/22 tabs Allergies Allergy/AdvReac Type Severity Reaction Status Date / Time No Known Allergies Allergy Verified 03/27/22 10:20 Review of Systems Review of Systems: Constitutional: No Fever, No Chills, No Fatigue, No Malaise ENT/Mouth: No Ear Pain, No Nasal Congestion , No sore throat, No Rhinorrhea, No Swallowing difficulty Eyes: No Eye Pain, No Swelling, No Redness, No Vision Changes Cardiovascular: +Chest Pain, No SOB, No Dyspnea on Exertion, No Orthopnea, No Edema, No Palpitations Respiratory:+Cough, No Sputum, No Wheezing, No Dyspnea Gastrointestinal: No Nausea, No Vomiting, No Diarrhea, No Constipation, No Abdominal pain Genitourinary: No Dysuria, No Urinary Frequency, No Hematuria, No Flank Pain, No Urinary Flow Changes, No Hesitancy Musculoskeletal: No joint pain, No Myalgias, No Joint Swelling Skin: No Skin Lesions, No rash Neuro: No Weakness, No Numbness, No Paresthesias, No Loss of Consciousness, No Dizziness, No Headache Yes all other systems are reviewed and are negative Constitutional: Constitutional: Reports as per [facility] Past Medical History Attestation statement: The following information was validated with the patient. Medical History HTN (hypertension) Surgical History H/O knee surgery H/O shoulder surgery Family History Family History Mother HTN (hypertension) Sister Esophagus cancer Social History Social History Alcohol intake: current Patient Tobacco Use Status: Never used Tobacco Substance Use Type: Marijuana Advance Directives: No Current occupational status: unemployed Current occupation: rt handed Physical Exam ED Vital Signs: Vital Signs - 24 hr 09/03/22 08:47 09/03/22 10:18 Temperature 98.3 F Pulse Rate 57 48 L Respiratory Rate 16 16 Blood Pressure 160/70 H 152/77 H Pulse Oximetry 97 97 Oxygen Delivery Method Room Air Room Air BMI result Body Mass Index 35.4 Const General: cooperative, healthy appearing, no acute distress, well developed, alert and awake Orientation/consciousness: patient oriented x3 Limitations: no limitations HENMT Head: Yes normal to inspection and Yes atraumatic Ears: hearing grossly normal bilaterally General nose exam: Normal external nose present Face and sinus: Yes normal facial exam Eyes General: appearance normal, both eyes and all related structures EOM: EOMs intact bilaterally Neck Neck: Yes normal visual inspection, Yes full ROM, Yes no lymphadenopathy and Yes no meningeal signs Chest Other: +ttp to left anterior lateral lower chest wall. No erythema or crepitus, no flail chest Chest palpation & inspection: normal inspection of the chest, no crepitus and tenderness Resp Effort & Inspection: normal respiratory effort, able to speak in complete sentences and no respiratory distress Auscultation: clear to auscultation bilaterally, no crackles, no rales, no rhonchi and no wheezes Cardio Jugular venous distension: JVD present Palpation: PMI not normal Rate: regular rate Rhythm: regular rhythm Heart sounds: S1 normal heart sound present and S2 normal heart sound present Peripheral pulses: Peripheral pulses 2+ throughout GI Inspection: Yes normal to inspection Palpation (GI): Soft to palpation, nontender, not rigid, No hepatosplenomegaly present and No Rebound tenderness present General: Yes no CVA tenderness Back/Spine/Pelvis Back: no CVA tenderness Skin Rashes: no rashes Wounds: no wounds Neuro General: patient oriented x3, gait normal, tone normal, moves all extremities and no meningeal signs Cranial nerves: Yes CN's II-XII intact bilaterally Extrem General: Yes normal to inspection, Yes no pedal edema, No no calf tenderness and No pedal edema Course Course Course Narrative: -1011--no leukocytosis. D-dimer 649 > will obtain CTA to rule out PE. Troponin negative, labs otherwise unremarkable XR chest 1V IMPRESSION: No acute cardiopulmonary process. ? CT angio chest PE protocol IMPRESSION: No acute PE. No active disease. ? VTE: negative Results discussed with patient including worrisome signs and symptoms and strict return precautions, and when to return to the emergency department. They verbalized understanding and feel safe for discharge at this time. Medical Decision Making [facility] Narrative Medical decision making narrative: 56 year old male with a PMH of poorly controlled HTN on Metoprolol, presenting to the ED c/o left sided chest wall pain that started describes as intermittent, exacerbated with lying on left side, and deep inspiration. On exam, VS, Lungs CTA, RRR, Reproducible chest pain with palpation, pleuritic chest pain with deep inspiration. Concerns for PE vs MSK pain/costochondritis vs ACS vs Pneumonia vs CHF vs GERD. Lower suspiscion for AAA/ dissesction, pancreatitis, gastritis, PUD. Low suspicion for hypertensive emergency/urgency Plan: EKG, CXR, Labs, home dose of p.o. metoprolol Medical Records Medical records reviewed: Yes I reviewed the patient's medical records. Lab Data Lab results reviewed: Yes I reviewed the patient's lab results. Result diagrams: 09/03/22 09:18 09/03/22 09:18 Labs: Lab Results 09/03/22 09/03/22 09/03/22 Range/Units 09:18 09:18 09:18 WBC 8.2 (4.8-10.8) X10*3/uL RBC 5.03 (4.60-5.80) X10*6/uL Hgb 15.9 (14.0-18.0) g/dl Hct 47.3 (42.0-52.0) % MCV 94.0 (80.0-98.0) fL MCH 31.6 (27.0-33.0) pg MCHC 33.6 (31.0-36.0) g/dl RDW 14.2 (11.0-16.0) % Plt Count 236 (160-400) X10*3/uL MPV 9.7 (9.4-12.4) fL Immature Gran % (Auto) 0.5 H (0.0-0.4) % Neut % (Auto) 68.3 (45-73) % Lymph % (Auto) 21.0 (20-40) % [place] % (Auto) 7.9 (2-11) % Eos % (Auto) 1.7 (0-4) % Baso % (Auto) 0.6 (0-2) % Lymph # (Auto) 1.7 (1.2-4.9) X10*3/uL [place] # (Auto) 0.7 (0.1-1.2) X10*3/uL Eos # (Auto) 0.1 (0.0-0.4) X10*3/uL Baso # (Auto) 0.1 (0.0-0.2) X10*3/uL Abs Immat Gran (auto) 0.04 H (0.00-0.03) X10*3/uL Absolute Neuts (auto) 5.6 (2.0-8.3) x10*3/uL Absolute Nucleated RBC 0.000 (0.0-0.012) X10*3/uL Nucleated RBC % (auto) 0.0 (0.0-0.2) /100WBC D-Dimer High Sensitivty NG/ML Sodium 141 (135-145) mmol/L Potassium 4.3 (3.3-5.1) mmol/L Chloride 105 (96-108) mmol/L Carbon Dioxide 26 (22-29) mmol/L Anion Gap 14 (12-20) BUN 15 (9-16) mg/dL Creatinine 0.86 (0.5-1.4) mg/dL Estim Creat Clear Calc 122.3 Estimated GFR > 60 Random Glucose 103 (60-115) mg/dL Calcium 9.2 (8.4-10.2) mg/dL Magnesium 2.0 (1.6-2.6) mg/dL Total Bilirubin 0.6 (0.0-1.0) mg/dL Direct Bilirubin 0.2 (0.0-0.5) mg/dL AST 15 (5-37) U/L ALT 20 (0-40) U/L Alkaline Phosphatase 103 D (39-117) U/L Troponin I High Sens Cancelled B-Natriuretic Peptide (<100) pg/mL Total Protein 6.8 (6.5-8.0) g/dL Albumin 3.8 (3.5-5.0) g/dL Lipase 41 (8-78) U/L COVID-19 (DANICA) (Negative) COVID-19 Clin Com 09/03/22 09/03/22 09/03/22 Range/Units 09:18 09:18 09:42 WBC (4.8-10.8) X10*3/uL RBC (4.60-5.80) X10*6/uL Hgb (14.0-18.0) g/dl Hct (42.0-52.0) % MCV (80.0-98.0) fL MCH (27.0-33.0) pg MCHC (31.0-36.0) g/dl RDW (11.0-16.0) % Plt Count (160-400) X10*3/uL MPV (9.4-12.4) fL Immature Gran % (Auto) (0.0-0.4) % Neut % (Auto) (45-73) % Lymph % (Auto) (20-40) % [place] % (Auto) (2-11) % Eos % (Auto) (0-4) % Baso % (Auto) (0-2) % Lymph # (Auto) (1.2-4.9) X10*3/uL [place] # (Auto) (0.1-1.2) X10*3/uL Eos # (Auto) (0.0-0.4) X10*3/uL Baso # (Auto) (0.0-0.2) X10*3/uL Abs Immat Gran (auto) (0.00-0.03) X10*3/uL Absolute Neuts (auto) (2.0-8.3) x10*3/uL Absolute Nucleated RBC (0.0-0.012) X10*3/uL Nucleated RBC % (auto) (0.0-0.2) /100WBC D-Dimer High Sensitivty 649 NG/ML Sodium (135-145) mmol/L Potassium (3.3-5.1) mmol/L Chloride (96-108) mmol/L Carbon Dioxide (22-29) mmol/L Anion Gap (12-20) BUN (9-16) mg/dL Creatinine (0.5-1.4) mg/dL Estim Creat Clear Calc Estimated GFR Random Glucose (60-115) mg/dL Calcium (8.4-10.2) mg/dL Magnesium (1.6-2.6) mg/dL Total Bilirubin (0.0-1.0) mg/dL Direct Bilirubin (0.0-0.5) mg/dL AST (5-37) U/L ALT (0-40) U/L Alkaline Phosphatase (39-117) U/L Troponin I High Sens < 3.5 B-Natriuretic Peptide 74 (<100) pg/mL Total Protein (6.5-8.0) g/dL Albumin (3.5-5.0) g/dL Lipase (8-78) U/L COVID-19 (DANICA) Negative (Negative) COVID-19 Clin Com See Note ECG Data Attestation: I personally reviewed and interpreted this ECG as follows: Interpretation: EKG sinus bradycardia rate of 57. MI interval 190. QTC 385. No STEMI Discharge Plan Discharge Clinical Impression: Atypical chest pain Patient Disposition: Home, Self-Care Instructions: Chest Pain (DC) Additional Instructions: Your blood work and imaging studies were reassuring. Heart enzyme was unremarkable. Your CT scan was negative for blood clot It is important that you have close follow-up with her doctor and Cardiology. If symptoms recur, persist, and shortness of breath, swelling in her legs or fever or pain becomes persistent/unbearable return to the ED immediately Naproxen as an anti-inflammatory/pain medication, take with food Prescriptions: New naproxen 500 mg tablet 500 mg PO BID PRN (Reason: pain) 10 Days Qty: 20 0RF No Action Humira(CF) Pen 40 mg/0.4 mL pen injector kit 40 mg subcut Q2W Qty: 2 0RF cyclobenzaprine 10 mg tablet 10 mg PO TID PRN (Reason: muscle spasm) Qty: 10 0RF naproxen 500 mg tablet 500 mg PO BID PRN (Reason: pain) Qty: 20 0RF lidocaine [Lidoderm] 5 % adhesive patch,medicated 1 patch topical DAILY Qty: 15 0RF Rx Instructions: leave on most painful area for up to 12 hrs lisinopril 5 mg tablet 5 mg PO DAILY metoprolol succinate 25 mg tablet extended release 24 hr 25 mg PO DAILY ibuprofen 800 mg tablet 800 mg PO Q8H Qty: 90 3RF Referrals: [facility] [place]Provider Group] - 1 week Keke Encinas MD [Primary Care Provider] -
--- OUTSIDE RECORDS SUMMARY | 2022-09-03 09:09 | XMS_ITS | Continuity of Care Document ---
:1965 Author Organization [facility] Address [address] [place] [id number]- Care Team Providers Name Role Phone Ce LAWTON, Keke Primary Care Physician [id number] Date(s): 02/26/22 - 02/27/[address] [address] Discharge Disposition: A-D/C Home Attending Physician: Nida Sosa MD, V Admitting Physician: Nida Sosa MD, V Referring Physician: Nida Sosa MD, V Allergies, Adverse Reactions, Alerts No Known Allergies Medications acetaminophen 325 mg oral tablet 975 mg, 3, tablet, By Mouth, Every 8 hours, Refills 0, Maintenance, 02/27/22 7:09:00 EDT, Partial fill upon patient request if the prescription is for a schedule II opioid drug. Start Date: 02/27/22 Status: Orderedaspirin 325 mg oral delayed release tablet 325 mg, By Mouth, Daily, Refills 0, Maintenance, 02/27/22 7:09:00 EDT, Partial fill upon patient request if the prescription is for a schedule II opioid drug. Start Date: 02/27/22 Status: OrderedDilaudid Inj 0.5 mg, Injection, IV Push Slowly, Every 2 hours, for BREAKTHROUGH pain not controlled on PO meds, PRN for Other, for BREAKTHROUGH pain not controlled on PO meds, Routine, 02/26/22 16:19:00 EDT Start Date: 02/26/22 Stop Date: 02/28/22 Status: Discontinueddocusate sodium 100 mg oral capsule 100 mg, 1, capsule, By Mouth, 2 times a day, Refills 0, Maintenance, 02/27/22 7:09:00 EDT, Partial fill upon patient request if the prescription is for a schedule II opioid drug. Start Date: 02/27/22 Status: OrderedLipitor 10 mg oral tablet 1 tablet = 10 mg, By Mouth, Daily at bedtime, # 30 tablet, 0 Refills, Maintenance, 02/21/22 16:13:00EDT, Partial fill upon patient request if the prescription is for a schedule II opioid drug. Start Date: 02/21/22 Status: OrderedLisinopril = 10 mg, By Mouth, Daily, 0 Refills, Maintenance, 02/21/22 16:12:00 EDT, Partial fill upon patient request if the prescription is for a schedule II opioid drug. Start Date: 02/21/22 Status: Orderedlisinopril 10 mg oral tablet 10 mg, Tablet, By Mouth, Hold for: hold for SBP < 120, Cr > 1.4, 02/27/22 9:00:00 EDT Start Date: 02/27/22 Stop Date: 02/27/22 Status: Completedmetoprolol 25 mg oral tablet, extended release 25 mg, 1, tablet, By Mouth, Daily, # 30 tablet, Refills 0, Maintenance, 02/21/22 16:12:00 EDT, Partial fill upon patient request if the prescription is for a schedule II opioid drug. Start Date: 02/21/22 Status: Orderedmetoprolol 25 mg oral tablet, extended release 25 mg, XL Tablet, By Mouth, Hold for: hold for SBP < 110, Hr < 55, 02/27/22 9:00:00 EDT Start Date: 02/27/22 Stop Date: 02/27/22 Status: CompletedoxyCODONE 5 mg oral tablet 10 mg, Tablet, By Mouth, Every 4 hours, PRN for Pain , Severe, Routine, 02/26/22 16:19:00 EDT Start Date: 02/26/22 Stop Date: 02/28/22 Status: DiscontinuedoxyCODONE 5 mg oral tablet 5 mg, 1, tablet, By Mouth, Every 4 hours, PRN, Refills 0, Tot. Refills 0, Maintenance, Pain , Moderate, 02/27/22 7:09:00 EDT, Partial fill upon patient request if the prescription is for a schedule II opioid drug. Start Date: 02/27/22 Status: OrderedoxyCODONE 5 mg oral tablet 10 mg, 2, tablet, By Mouth, Every 4 hours, PRN, Refills 0, Tot. Refills 0, Maintenance, Pain , Severe, 02/27/22 7:09:00 EDT, Partial fill upon patient request if the prescription is for a schedule II opioid drug. Start Date: 02/27/22 Status: Ordered Problem List Condition Effective Dates Status Health Status Informant Obese class II(Confirmed) Active Results Radiology Reports Exam Date Time Procedure Performing Provider Status 02/26/22 6:00 PM Shoulder 1 View Left Connor Mckenna; Cody (Verif ied) Notes:(Shoulder 1 View Left) Reason For Exam: S/p Left reverse total shoulder arthroplasty;Other:RESULT: Shoulder 1 View Left Shoulder 1 View Left INDICATION: Reason: Other:; S p Left reverse total shoulder arthroplasty; Clinical Question(s): Dislocation COMPARISON: None. FINDINGS: Left shoulder reverse total arthroplasty hardware is in good alignment. No fracture. IMPRESSION: Normal postoperative appearance. WSN: [id number] Ordering Physician: Nida Sosa V Dictated By: Sweta Victor MD Dictated Date/Time: 02/26/22 7:54 pm Reviewed By: Sweta Victor MD Signed By: Sweta Victor MD Signed Date/Time: 02/26/22 7:54 pm Transcribed By: ROBB Transcribed Date/Time: 02/26/22 7:53 pm Vital Signs Most recent to oldest 1 2 3 [Reference Range]: Height 182.8 cm 182.8 cm 182.8 cm (02/27/22 2:32 PM) (02/26/22 10:46 AM) (02/21/22 2: 46 PM) Weight 117.9 kg 114.5 kg (02/26/22 10:46 AM) (02/21/22 2:46 PM) Oxygen Saturation [94-100 95 % 95 % 98 % %] (02/27/22 2:32 PM) (02/27/22 11:00 AM) (02/27/22 7: 00 AM) Pulse Rate [55-90 bpm] 52 bpm 68 bpm 70 bpm *L* (02/27/22 11:00 AM) (02/27/22 8:09 AM) (02/27/22 2:32 PM) Body Mass Index 35.28 34.27 [18.5-24.99] *>HHI* *>HHI* (02/26/22 10:46 AM) (02/21/22 2:46 PM) Blood Pressure 136/78 mm Hg 126/80 mm Hg 130/82 mm Hg [90-138/55-84 mm Hg] (02/27/22 2:32 PM) (02/27/22 11:00 AM) ( 8:10 AM) Respiratory Rate [16-30 18 br/min 16 br/min 19 br/mi n br/min] (02/27/22 4:05 PM) (02/27/22 2:32 PM) (02/27/22 1:2 5 PM) Temperature [96.8-100.4 97.3 DegF 97.8 DegF 98.6 Deg F DegF] (02/27/22 2:32 PM) (02/27/22 11:00 AM) (02/27/22 7: 00 AM) Liters per Minute 6 L/min 2 L/min (02/26/22 4:18 PM) (02/26/22 12:30 PM) Mode of Delivery (Oxygen) Room air Room air Room a ir (02/27/22 2:32 PM) (02/27/22 11:00 AM) (02/27/22 7: 00 AM) Blood pressure sites Arm, right Arm, right Arm, right (02/27/22 2:32 PM) (02/27/22 7:00 AM) (02/27/22 4:0 0 AM) Temperature Route Oral Oral Oral (02/27/22 2:32 PM) (02/27/22 11:00 AM) (02/27/22 7: 00 AM) Dry Weight 117.9 kg 114.5 kg (02/26/22 10:46 AM) (02/21/22 2:46 PM) Weight Obtained Via Standing scale Patient/family stated (02/26/22 10:46 AM) (02/21/22 2:46 PM) Dry Weight Obtained Via Standing scale Patient/family stated (02/26/22 10:46 AM) (02/21/22 2:46 PM)
[2022-09-03 09:22] LABS: MANUAL DIFF FLAG NO
[2022-09-03 09:24] LABS: Basophils Absolute Auto 0.1 X10*3/uL (0.0-0.2); Basophils Percent Auto 0.6 % (0-2); Eosinophils Absolute Auto 0.1 X10*3/uL (0.0-0.4); Eosinophils Percent Auto 1.7 % (0-4); Hematocrit 47.3 % (42.0-52.0); Hemoglobin 15.9 g/dl (14.0-18.0); Imm Gran Abs Auto 0.04 X10*3/uL (0.00-0.03); Imm Gran Pct Auto 0.5 % (0.0-0.4); Lymphocytes Absolute Auto 1.7 X10*3/uL (1.2-4.9); Mean Corpuscular HGB Conc 33.6 g/dl (31.0-36.0); Mean Corpuscular Hemoglobin 31.6 pg (27.0-33.0); Mean Platelet Volume 9.7 fL (9.4-12.4); Monocytes Absolute Auto 0.7 X10*3/uL (0.1-1.2); Monocytes Percent Auto 7.9 % (2-11); Neutrophils Absolute Auto 5.6 x10*3/uL (2.0-8.3); Neutrophils Percent Auto 68.3 % (45-73); Platelet Count 236 X10*3/uL (160-400); Red Blood Count 5.03 X10*6/uL (4.60-5.80); Red Cell Distribution Width 14.2 % (11.0-16.0); White Blood Count 8.2 X10*3/uL (4.8-10.8)
[2022-09-03 09:40] LABS: COVID-19 Test Negative (Negative); IDNOW Serial# 16C4AD1C
[2022-09-03 09:41] LABS: Alanine Aminotransferase 20 U/L (0-40); Albumin Level 3.8 g/dL (3.5-5.0); Alkaline Phosphatase 103 U/L (39-117); Anion Gap 14 (12-20); Aspartate Amino Transferase 15 U/L (5-37); Bilirubin Direct 0.2 mg/dL (0.0-0.5); Bilirubin Total 0.6 mg/dL (0.0-1.0); Blood Urea Nitrogen 15 mg/dL (9-16); Calcium 9.2 mg/dL (8.4-10.2); Carbon Dioxide 26 mmol/L (22-29); Chloride 105 mmol/L (96-108); Creatinine Clr Calc Pharmacy 122.3; Estimated Glomerular Filt Rate > 60; Glucose Random 103 mg/dL (60-115); Lipase 41 U/L (8-78); Potassium 4.3 mmol/L (3.3-5.1); Sodium 141 mmol/L (135-145); Total Protein 6.8 g/dL (6.5-8.0)
[2022-09-03 09:45] LABS: B Type Natriuretic Peptide 74 pg/mL (<100); Troponin-I High Sensitivity < 3.5 ng/L (<3.5-35.0)
[2022-09-03] MEDS: Metoprolol Succinate ER 25 MG TAB.ER.24H PO (09:46)
[2022-09-03] MEDS: Ketorolac Tromethamine 15 MG/ML VIAL IVPUSH (09:46)
[2022-09-03 10:05] LABS: D Dimer High Sensitivity 649 NG/ML
[2022-09-03 10:18] VITALS: BP 152/77; PULSE 48; RESP 16; O2SAT 97
[2022-09-03] MEDS: iohexoL 350 MG/ML 100 ML INFUS..BTL 65 ML IV (10:53)
== END 2022-09-03 13:00 | disposition home or self-care (01) ==
PROVIDERS: Physician Assistant; Emergency Provider Emergency Medicine; PCP Internal Medicine
DX: R07.89 Other chest pain (principal); Z20.822 Contact with and (suspected) exposure to COVID-19; I10 Essential (primary) hypertension; Z79.899 Other long term (current) drug therapy
CPT/HCPCS: 36415; 71045; 71275; 80048; 80076; 83690; 83735; 83880; 84484; 85025; 85379; 87635; 93005; 96374; 99284; J1885; Q9967

== ENCOUNTER 2022-09-16 13:00 | Outpatient (REF) | payer MEDICAID, SELFPAY ==
--- NOTE | ~2022-09-16 | XR_ITS ---
EXAMINATION: XR KNEE, RIGHT CLINICAL INFORMATION: Knee pain. COMPARISON: 06/05/2016 TECHNIQUE: Two views of the right knee. FINDINGS: Tricompartmental degenerative changes are present. There is narrowing of the lateral compartment with lateral condyle and lateral tibial plateau osteophyte formation. Some mild osteophytes are present in the medial compartment which is not significantly narrowed. Some mild irregularity noted at the inferior patella with a small associated joint effusion. XR/XR knee RT 2V IMPRESSION: Tricompartmental degenerative changes with small joint effusion.
== END 2022-09-16 13:01 | disposition home or self-care (01) ==
LOC: HO.XRAY 13:00
PROVIDERS: PCP Internal Medicine; Visit Provider Internal Medicine
DX: M25.561 Pain in right knee (principal)
CPT/HCPCS: 73560

== ENCOUNTER 2022-10-03 08:04 | Outpatient (REF) | payer MEDICAID, SELFPAY ==
--- NOTE | ~2022-10-03 | XR_ITS ---
EXAMINATION: XR KNEE, LEFT CLINICAL INFORMATION: Pain in the left knee. COMPARISON: X-ray the left knee October 2011. TECHNIQUE: 2 views of the left knee. FINDINGS: There is a small joint effusion. The bones, joints and soft tissues are otherwise unremarkable. XR/XR knee LT 2V IMPRESSION: Small joint effusion.
== END 2022-10-03 08:05 | disposition home or self-care (01) ==
LOC: HO.XRAY 08:04
PROVIDERS: PCP Family Medicine; Visit Provider Family Medicine
DX: M25.562 Pain in left knee (principal)
CPT/HCPCS: 73560

== ENCOUNTER 2023-01-15 08:22 | Emergency (ER) | payer MEDICAID, SELFPAY ==
--- NOTE | ~2023-01-15 | XR_ITS ---
EXAMINATION: XR CHEST CLINICAL INFORMATION: Chest pain COMPARISON: 09/03/2022 TECHNIQUE: 2 views of the chest were obtained. FINDINGS: No significant abnormality is noted involving the heart, lungs, mediastinum or soft tissues. A left reverse shoulder prosthesis is again noted along with degenerative changes in the spine. XR/XR chest 2V IMPRESSION: No acute intrathoracic disease
--- NOTE | 2023-01-15 08:23 | ECG_ITS ---
Test Reason : chest pain Blood Pressure : / mmHG Vent. Rate : 047 BPM Atrial Rate : 047 BPM P-R Int : 214 ms QRS Dur : 098 ms QT Int : 394 ms P-R-T Axes : 028 -27 000 degrees QTc Int : 348 ms Sinus bradycardia with 1st degree A-V block Otherwise normal ECG When compared with ECG of 03-SEP-2022 08:46, No significant change was found Referred By: Generic ED Physician Electronically Signed By:Robles Coreas
[2023-01-15 08:28] VITALS: BP 158/79; PULSE 47; RESP 18; TEMP 36.2; O2SAT 97; BMI 34.5
[2023-01-15 08:42] LABS: MANUAL DIFF FLAG NO
[2023-01-15 08:43] LABS: Basophils Absolute Auto 0.1 X10*3/uL (0.0-0.2); Basophils Percent Auto 0.8 % (0-2); Eosinophils Absolute Auto 0.2 X10*3/uL (0.0-0.4); Eosinophils Percent Auto 2.4 % (0-4); Hematocrit 46.2 % (42.0-52.0); Hemoglobin 15.7 g/dl (14.0-18.0); Imm Gran Abs Auto 0.01 X10*3/uL (0.00-0.03); Imm Gran Pct Auto 0.2 % (0.0-0.4); Lymphocytes Absolute Auto 1.4 X10*3/uL (1.2-4.9); Lymphocytes Percent Auto 22.6 % (20-40); Mean Corpuscular Hemoglobin 32.4 pg (27.0-33.0); Mean Corpuscular Volume 95.5 fL (80.0-98.0); Mean Platelet Volume 9.1 fL (9.4-12.4); Monocytes Absolute Auto 0.6 X10*3/uL (0.1-1.2); Monocytes Percent Auto 8.8 % (2-11); Neutrophils Absolute Auto 4.2 x10*3/uL (2.0-8.3); Neutrophils Percent Auto 65.2 % (45-73); Platelet Count 238 X10*3/uL (160-400); Red Blood Count 4.84 X10*6/uL (4.60-5.80); Red Cell Distribution Width 13.1 % (11.0-16.0); White Blood Count 6.4 X10*3/uL (4.8-10.8)
--- NOTE | 2023-01-15 08:51 | ED.CHESTPAIN ---
HPI - Chest Pain General Chief Complaint: Chest Pain Stated Complaint: Chest pressure Time Seen by Provider: 01/15/23 08:43 Source: patient Mode of arrival: ambulatory Limitations: no limitations History of Present Illness HPI narrative: This is a 57 years old man presented to the emergency department complaining of left-sided chest pain since 530 in the morning. Patient's eyes history of hypertension, he does no smoke no diabetes. He comes ambulatory to the emergency department. The pain is a little be worse with movement of the chest no radiation to the arms of back or neck no diaphoresis complaint: chest pain Onset (ago): hour(s) (3) Timing of current episode: constant Onset: during rest Pain location: substernal and left chest Pain radiation: none Severity: moderate Quality: heaviness Relieving factors: nothing Exacerbating factors: nothing Associated symptoms: nausea and vomiting Risk Factors Coronary artery disease risk factors: hypertension Thoracic aortic dissection risk factors: none Related Data Home Medications Medication Instructions Recorded Confirmed lisinopril 5 mg tablet 5 mg PO DAILY 05/22/21 11/14/21 metoprolol succinate 25 mg 25 mg PO DAILY 05/22/21 11/14/21 tablet,extended release 24 hr Previous Rx's Medication Instructions Recorded cyclobenzaprine 10 mg tablet 10 mg PO TID PRN muscle spasm #10 05/01/21 tabs lidocaine 5 % topical patch 1 patch topical DAILY #15 ea 05/01/21 (Lidoderm) naproxen 500 mg tablet 500 mg PO BID PRN pain #20 tabs 05/01/21 ibuprofen 800 mg tablet 800 mg PO Q8H #90 tabs 05/25/21 adalimumab 40 mg/0.4 mL 40 mg (0.4 mL) subcut Q2W #2 ea 06/24/22 subcutaneous pen kit (Humira(CF) Pen) naproxen 500 mg tablet 500 mg PO BID PRN pain 10 days #20 09/03/22 tabs Allergies Allergy/AdvReac Type Severity Reaction Status Date / Time No Known Allergies Allergy Verified 03/27/22 10:20 Review of Systems Review of Systems: Yes all other systems are reviewed and are negative Constitutional: Constitutional: Reports no additional constitutional complaints Cardiovascular: Cardiovascular: Reports chest pain PMFSH Past Medical History Medical History HTN (hypertension) Surgical History H/O knee surgery H/O shoulder surgery Family History Family History Mother HTN (hypertension) Sister Esophagus cancer Social History Social History Alcohol intake: current Alcohol intake frequency: 0-2 drinks per day Alcohol type: beer Patient Tobacco Use Status: Never used Tobacco Smoked in Last 30 Days: Yes Use of substances other than those prescribed or required for medical reasons: No Substance Use Type: Marijuana Advance Directives: No Advance Directives Information Provided: Yes Current occupational status: unemployed Current occupation: rt handed Physical Exam Vital Signs: Vital Signs: Last Vital Signs Temp 98 F 01/15/23 12:17 Pulse 49 L 01/15/23 12:17 Resp 15 01/15/23 12:17 BP 156/84 H 01/15/23 12:17 Pulse Ox 97 01/15/23 12:17 O2 Del Method 01/15/23 12:17 BMI result Body Mass Index 34.5 Const: General: cooperative Nutritional Appearance: well nourished Orientation/consciousness: patient oriented x3 HEENT: General nose exam: Normal external nose present Face and sinus: Yes normal facial exam Mouth: Normal oral and palatal mucosa present Teeth and gingiva: dentition normal Throat: Yes posterior oropharynx normal Neck: Neck: Yes normal visual inspection and Yes full ROM Chest: Chest palpation & inspection: normal inspection of the chest Resp: Effort & Inspection: normal respiratory effort Auscultation: clear to auscultation bilaterally Cardio: Jugular venous distension: no JVD Rate: regular rate Rhythm: regular rhythm GI: Inspection: Yes normal to inspection Palpation (GI): Soft to palpation, not firm and nontender Skin: General skin exam: no rashes or lesions noted and elasticity normal Neuro: General: patient oriented x3 Course Reevaluation(s) Reevaluation #1: chest pain free waiting for #2 tropi Time: 11:34 Reevaluation #2: Remain chest pain-free repeat troponin negative anticipate discharge Time: 12:43 Medical Decision Making Medical Decision Making MDM Narrative: Patient presented with chest pain you will obtain EKG chest x-ray high sensitive troponin Differential Diagnosis Differential Diagnoses: The differential diagnosis associated with the presentation includes ACS/pericarditis/a chest wall pain Admission/Observation Consideration of admission/observation: Escalation of care including admission/observation considered Lab Data MDM Lab Attestation statement: I reviewed the patient's lab results. 01/15/23 08:38 01/15/23 08:38 Labs: Lab Results 01/15/23 01/15/23 01/15/23 Range/Units 08:38 08:38 08:38 WBC 6.4 (4.8-10.8) X10*3/uL RBC 4.84 (4.60-5.80) X10*6/uL Hgb 15.7 (14.0-18.0) g/dl Hct 46.2 (42.0-52.0) % MCV 95.5 (80.0-98.0) fL MCH 32.4 (27.0-33.0) pg MCHC 34.0 (31.0-36.0) g/dl RDW 13.1 (11.0-16.0) % Plt Count 238 (160-400) X10*3/uL MPV 9.1 L (9.4-12.4) fL Immature Gran % (Auto) 0.2 (0.0-0.4) % Neut % (Auto) 65.2 (45-73) % Lymph % (Auto) 22.6 (20-40) % [place] % (Auto) 8.8 (2-11) % Eos % (Auto) 2.4 (0-4) % Baso % (Auto) 0.8 (0-2) % Lymph # (Auto) 1.4 (1.2-4.9) X10*3/uL [place] # (Auto) 0.6 (0.1-1.2) X10*3/uL Eos # (Auto) 0.2 (0.0-0.4) X10*3/uL Baso # (Auto) 0.1 (0.0-0.2) X10*3/uL Abs Immat Gran (auto) 0.01 (0.00-0.03) X10*3/uL Absolute Neuts (auto) 4.2 (2.0-8.3) x10*3/uL Absolute Nucleated RBC 0.000 (0.0-0.012) X10*3/uL Nucleated RBC % (auto) 0.0 (0.0-0.2) /100WBC Sodium 140 (135-145) mmol/L Potassium 4.4 (3.3-5.1) mmol/L Chloride 107 (96-108) mmol/L Carbon Dioxide 27 (22-29) mmol/L Anion Gap 10 L (12-20) BUN 14 (9-16) mg/dL Creatinine 0.83 (0.5-1.4) mg/dL Estim Creat Clear Calc 127.3 Estimated GFR > 60 Random Glucose 109 (60-115) mg/dL Calcium 9.5 (8.4-10.2) mg/dL Total Bilirubin 0.6 (0.0-1.0) mg/dL Direct Bilirubin < 0.2 (0.0-0.5) mg/dL AST 18 (5-37) U/L ALT 21 (0-40) U/L Alkaline Phosphatase 108 (39-117) U/L Troponin I High Sens < 3.5 (<3.5-35.0) ng/L Total Protein 6.6 (6.5-8.0) g/dL Albumin 3.9 (3.5-5.0) g/dL 01/15/23 Range/Units 11:31 WBC (4.8-10.8) X10*3/uL RBC (4.60-5.80) X10*6/uL Hgb (14.0-18.0) g/dl Hct (42.0-52.0) % MCV (80.0-98.0) fL MCH (27.0-33.0) pg MCHC (31.0-36.0) g/dl RDW (11.0-16.0) % Plt Count (160-400) X10*3/uL MPV (9.4-12.4) fL Immature Gran % (Auto) (0.0-0.4) % Neut % (Auto) (45-73) % Lymph % (Auto) (20-40) % [place] % (Auto) (2-11) % Eos % (Auto) (0-4) % Baso % (Auto) (0-2) % Lymph # (Auto) (1.2-4.9) X10*3/uL [place] # (Auto) (0.1-1.2) X10*3/uL Eos # (Auto) (0.0-0.4) X10*3/uL Baso # (Auto) (0.0-0.2) X10*3/uL Abs Immat Gran (auto) (0.00-0.03) X10*3/uL Absolute Neuts (auto) (2.0-8.3) x10*3/uL Absolute Nucleated RBC (0.0-0.012) X10*3/uL Nucleated RBC % (auto) (0.0-0.2) /100WBC Sodium (135-145) mmol/L Potassium (3.3-5.1) mmol/L Chloride (96-108) mmol/L Carbon Dioxide (22-29) mmol/L Anion Gap (12-20) BUN (9-16) mg/dL Creatinine (0.5-1.4) mg/dL Estim Creat Clear Calc Estimated GFR Random Glucose (60-115) mg/dL Calcium (8.4-10.2) mg/dL Total Bilirubin (0.0-1.0) mg/dL Direct Bilirubin (0.0-0.5) mg/dL AST (5-37) U/L ALT (0-40) U/L Alkaline Phosphatase (39-117) U/L Troponin I High Sens < 3.5 (<3.5-35.0) ng/L Total Protein (6.5-8.0) g/dL Albumin (3.5-5.0) g/dL Independent Interpretation I performed an independent interpretation of an: EKG Interpretation: EKG 1. Sinus bradycardia rate [address]-T changes no current of injury Radiology Impression Discussion of test interpretation with radiology: I have reviewed the radiologist's reading. Radiologist Impression: CLINICAL INFORMATION: Chest pain COMPARISON: 09/03/2022 TECHNIQUE: 2 views of the chest were obtained. FINDINGS: No significant abnormality is noted involving the heart, lungs, mediastinum or soft tissues. A left reverse shoulder prosthesis is again noted along with degenerative changes in the spine. XR/XR chest 2V IMPRESSION: No acute intrathoracic disease ? Dictated By: Juan Cleveland MD Signed By: <Electronically signed by Juan Cleveland MD in OV> 01/15/23 0920 Discharge Plan Discharge Clinical Impression: Chest pain Patient Disposition: Home, Self-Care Instructions: Chest Pain (DC) Additional Instructions: Please follow-up with primary care physician tomorrow, return to the emergency room if you have recurrent chest pain, if you break up in a sweat, if you pain is on exertion Prescriptions: No Action Humira(CF) Pen 40 mg/0.4 mL pen injector kit 40 mg subcut Q2W Qty: 2 0RF cyclobenzaprine 10 mg tablet 10 mg PO TID PRN (Reason: muscle spasm) Qty: 10 0RF naproxen 500 mg tablet 500 mg PO BID PRN (Reason: pain) Qty: 20 0RF lidocaine [Lidoderm] 5 % adhesive patch,medicated 1 patch topical DAILY Qty: 15 0RF Rx Instructions: leave on most painful area for up to 12 hrs naproxen 500 mg tablet 500 mg PO BID PRN (Reason: pain) 10 Days Qty: 20 0RF lisinopril 5 mg tablet 5 mg PO DAILY metoprolol succinate 25 mg tablet extended release 24 hr 25 mg PO DAILY ibuprofen 800 mg tablet 800 mg PO Q8H Qty: 90 3RF Referrals: [facility] [Primary Care Provider] - 1 day Stand Alone Forms: Work/School Release
[2023-01-15 09:01] VITALS: BP 153/75; PULSE 48; RESP 16; TEMP 36.4; O2SAT 96
[2023-01-15 09:04] LABS: Anion Gap 10 (12-20); Blood Urea Nitrogen 14 mg/dL (9-16); Calcium 9.5 mg/dL (8.4-10.2); Carbon Dioxide 27 mmol/L (22-29); Chloride 107 mmol/L (96-108); Creatinine Clr Calc Pharmacy 127.3; Estimated Glomerular Filt Rate > 60; Glucose Random 109 mg/dL (60-115); Potassium 4.4 mmol/L (3.3-5.1); Sodium 140 mmol/L (135-145)
[2023-01-15 09:13] LABS: Troponin-I High Sensitivity < 3.5 ng/L (<3.5-35.0)
[2023-01-15 09:14] LABS: Alanine Aminotransferase 21 U/L (0-40); Albumin Level 3.9 g/dL (3.5-5.0); Alkaline Phosphatase 108 U/L (39-117); Aspartate Amino Transferase 18 U/L (5-37); Bilirubin Direct < 0.2 mg/dL (0.0-0.5); Bilirubin Total 0.6 mg/dL (0.0-1.0); Total Protein 6.6 g/dL (6.5-8.0)
[2023-01-15 10:48] VITALS: BP 161/85; PULSE 54; RESP 16; TEMP 36.6; O2SAT 99
[2023-01-15 11:03] VITALS: BP 161/85; PULSE 47; RESP 16; TEMP 36.6; O2SAT 98
[2023-01-15 11:57] LABS: Troponin-I High Sensitivity < 3.5 ng/L (<3.5-35.0)
[2023-01-15 12:17] VITALS: BP 156/84; PULSE 49; RESP 15; TEMP 36.6; O2SAT 97
== END 2023-01-15 12:54 | disposition home or self-care (01) ==
PROVIDERS: Emergency Provider Emergency Medicine
DX: R07.89 Other chest pain (principal); I10 Essential (primary) hypertension; Z79.899 Other long term (current) drug therapy
CPT/HCPCS: 36415; 71046; 80048; 80076; 84484; 85025; 93005; 99284; 99285

== ENCOUNTER → 2023-02-24 15:00 | Outpatient (BNVA) | payer MEDICAID, SELFPAY | PROVIDERS: PCP Internal Medicine; Visit Provider Nurse Practitioner Family | DX: Z12.11 Encounter for screening for malignant neoplasm of colon (principal) | CPT/HCPCS: 99202 ==

== ENCOUNTER 2023-03-03 08:46 | Outpatient (REF) | payer MEDICAID, SELFPAY ==
--- NOTE | ~2023-03-03 | XR_ITS ---
EXAMINATION: XR KNEE AP STANDING CLINICAL INFORMATION: Pain. COMPARISON: Radiographs dated 10/03/2022 and 09/16/2022. TECHNIQUE: AP bilateral standing view of the knees was obtained. FINDINGS: Bony mineralization is normal. There is marked asymmetric narrowing of the right lateral joint space compartment. The right medial joint space compartment is well-maintained. There is peripheral osteophyte formation of the right lateral and medial joint space compartments. There is a mild valgus configuration of the right knee. There is mild asymmetric narrowing of the medial joint space compartment of the left knee, with peripheral osteophyte formation. The lateral joint is well-maintained. No significant varus or valgus configuration is seen. The soft tissue planes are unremarkable. XR/XR knee standing BI IMPRESSION: 1. There is marked degenerative change of the lateral joint space compartment of the right knee, and mild degenerative change is seen of the medial joint space compartment. 2. There is a mild valgus configuration of the right knee. 3. There is mild degenerative change of the medial joint space compartment of the left knee.
== END 2023-03-03 08:47 | disposition home or self-care (01) ==
LOC: HO.HOSX 08:46
PROVIDERS: Visit Provider Orthopaedic Surgery
DX: M17.11 Unilateral primary osteoarthritis, right knee (principal); M06.9 Rheumatoid arthritis, unspecified
CPT/HCPCS: 73565; 99212

== ENCOUNTER → 2023-05-07 10:06 | Outpatient (BNVA) | payer MEDICAID, SELFPAY | PROVIDERS: Visit Provider Orthopaedic Surgery ==

== ENCOUNTER 2023-05-13 11:01 | Outpatient (REF) | payer MEDICAID, SELFPAY ==
[2023-05-13 14:21] LABS: Basophils Percent Auto 0.6 % (0-2); Eosinophils Absolute Auto 0.1 X10*3/uL (0.0-0.4); Hematocrit 48.6 % (42.0-52.0); Hemoglobin 16.3 g/dl (14.0-18.0); Imm Gran Abs Auto 0.01 X10*3/uL (0.00-0.03); Imm Gran Pct Auto 0.1 % (0.0-0.4); Lymphocytes Absolute Auto 1.4 X10*3/uL (1.2-4.9); Lymphocytes Percent Auto 19.5 % (20-40); MANUAL DIFF FLAG NO; Mean Corpuscular HGB Conc 33.5 g/dl (31.0-36.0); Mean Corpuscular Hemoglobin 32.4 pg (27.0-33.0); Mean Corpuscular Volume 96.6 fL (80.0-98.0); Mean Platelet Volume 9.6 fL (9.4-12.4); Monocytes Absolute Auto 0.6 X10*3/uL (0.1-1.2); Neutrophils Absolute Auto 5.1 x10*3/uL (2.0-8.3); Neutrophils Percent Auto 70.8 % (45-73); Platelet Count 252 X10*3/uL (160-400); Red Blood Count 5.03 X10*6/uL (4.60-5.80); Red Cell Distribution Width 13.9 % (11.0-16.0); White Blood Count 7.2 X10*3/uL (4.8-10.8)
[2023-05-13 14:31] LABS: Estimated Average Glucose 103 mg/dL; Hemoglobin A1c % 5.2 %
[2023-05-13 15:17] LABS: Alanine Aminotransferase 22 U/L (0-40); Albumin Level 4.1 g/dL (3.5-5.0); Alkaline Phosphatase 95 U/L (39-117); Anion Gap 12 (12-20); Aspartate Amino Transferase 16 U/L (5-37); Bilirubin Direct 0.3 mg/dL (0.0-0.5); Bilirubin Total 1.1 mg/dL (0.0-1.0); Blood Urea Nitrogen 15 mg/dL (9-16); Calcium 9.8 mg/dL (8.4-10.2); Carbon Dioxide 25 mmol/L (22-29); Chloride 105 mmol/L (96-108); Cholesterol 218 mg/dL; Estimated Glomerular Filt Rate > 60; Glucose Fasting 88 mg/dL (60-99); HDL Cholesterol 56 mg/dL; LDL Cholesterol Calculated 129 mg/dl; Potassium 4.1 mmol/L (3.3-5.1); Sodium 138 mmol/L (135-145); Total Protein 7.1 g/dL (6.5-8.0); Triglycerides 167 mg/dL
[2023-05-13 15:31] LABS: Prostate Specific Antigen 0.37 ng/mL (<0.05-4.0); Vitamin B12 453 pg/mL (200-900)
[2023-05-13 15:36] LABS: TSH reflex Free T4 2.04 uIU/mL (0.32-4.0)
== END 2023-05-13 11:02 | disposition home or self-care (01) ==
LOC: HO.CHCLDS 11:01
PROVIDERS: Visit Provider Pediatrics
DX: Z12.5 Encounter for screening for malignant neoplasm of prostate (principal); E78.2 Mixed hyperlipidemia; I10 Essential (primary) hypertension
CPT/HCPCS: 36415; 80048; 80061; 80076; 82607; 83036; 84153; 84443; 85025

== ENCOUNTER 2023-05-14 12:21 | Outpatient (AMB) | payer MEDICAID, SELFPAY ==
[2023-05-14 12:33] VITALS: BP 136/84; PULSE 64; BMI 33.2
--- NOTE | 2023-05-14 12:33 | A.OFFVIS_ITS ---
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 He has sinus bradycardia and first-degree heart block and hence referred to us. Patient himself does not have any known cardiac issues. No history of any coronary artery disease or myocardial infarction or cardiomyopathy or in fact anything cardiac sounding. He has a history of hypertension. Apparently, was on medications but he was getting dizzy and then stopped all the medications. Hence on nothing at this time. Any case, in without the medication today's blood pressure seems not too elevated. Other blood pressures in the past have been higher. Within limits of his activity, he does not have any chest pain or shortness of breath or any cardiac sounding symptoms. He states he has knee pain but he still walks a lot and does not get any symptoms. With difficulty, he can climb stairs but again no angina or cardiac symptoms. [facility] Medical History HTN (hypertension) Surgical History H/O knee surgery H/O shoulder surgery Family History Mother HTN (hypertension) Sister Esophagus cancer Colon cancer Social History Alcohol intake: current Alcohol intake frequency: 0-2 drinks per day Alcohol type: beer Patient Tobacco Use Status: Never used Tobacco Substance Use Type: Marijuana Current occupational status: unemployed Current occupation: rt handed Review of Systems Const Denies chills, Denies daytime sleepiness, Denies fatigue, Denies fever(s), Denies frequent falls, Denies night sweats, Denies snoring, Denies weakness, Denies weight gain and Denies weight loss Eyes Denies loss of vision ENT Denies dizziness and Denies hearing loss Card Denies chest pain, Denies chest pain with activity, Denies syncope, Denies rapid heart rate, Denies edema, Denies claudication, Denies leg edema, Denies lightheadedness, Denies palpitations, Denies dyspnea, Denies dyspnea on exertion and Denies orthopnea Resp Denies cough, Denies excessive phlegm production, Denies dyspnea, Denies dyspnea on exertion, Denies snoring and Denies wheezing GI Denies abdominal pain, Denies hematochezia, Denies change in bowel habits, Denies change in stool character, Denies heartburn, Denies nausea and Denies vomiting Denies hematuria, Denies dysuria and Denies urinary frequency Musc Denies arthralgias, Denies muscle weakness, Denies numbness and Denies tingling Skin/Breast Denies nail changes and Denies rash Neuro Denies Abnormal speech present, Denies dizziness, Denies syncope, Denies frequent falls, Denies loss of vision, Denies memory loss, Denies numbness, Denies tingling and Denies weakness Psych Denies depression and Denies memory loss Endo Denies fatigue and Denies palpitations Aller/Immun Denies wheezing Physical Exam Vital Signs: Last Vital Signs Pulse 64 05/14/23 12:33 BP 136/84 05/14/23 12:33 BMI result Body Mass Index 33.2 Const General: comfortable and no acute distress Orientation/consciousness: patient oriented x3 HEENT Other: Unremarkable Head: Yes normal to inspection Neck Neck: Yes normal visual inspection Chest Chest palpation & inspection: normal inspection of the chest Resp Auscultation: clear to auscultation bilaterally Cardio Palpation: normal PMI Heart sounds: S1 normal heart sound present, S2 normal heart sound present, no gallops, no murmurs and no rubs GI Palpation (GI): Soft to palpation Back/Spine/Pelvis Other: unremarkable Skin General skin exam: no rashes or lesions noted Neuro General: patient oriented x3 Speech: No Abnormal speech present Extrem General: Yes normal to inspection Psych Mental Status: mental status grossly normal Office Procedures EKG Details: EKG with sinus bradycardia at 53/Min; borderline [place] prolongation to 216 mi llisecond; no significant ST-T [place]; [place] [id number], Complete Assessment & Plan Assessment & Plan (1) Preoperative cardiovascular examination: Code(s): Z01.810 - Encounter for preprocedural cardiovascular examination (2) Bradycardia: Code(s): R00.1 - Bradycardia, unspecified Plan EKG shows mild sinus bradycardia/prolonged [place], but it has been similar even in 2020. Last echocardiogram 2017 with LVEF of 60-65%. No wall motion abnormalities and otherwise unremarkable. Last stress test 2017 shows no ischemic findings on the EKG with exercise capacity of 8.8 Mets. Hypertensive blood pressure response. Overall, he has got absolutely no cardiac symptoms and no known ischemic heart disease. The sinus bradycardia/prolonged [place] is benign. May proceed with knee surgery as planned. Low cardiac risk. With regard to hypertension management, apparently patient stopped his medications due to feeling dizzy and today's blood pressure seems reasonable. He can follow up with his own PCP regarding that. Any perioperative blood pressure issues will need to be managed accordingly. If any concerns, to contact us. Coding Level of Care Code New Pt Level 3 (23577) Diagnoses Preoperative cardiovascular examination Z01.810 Bradycardia R00.1 CPT Codes EKG - CPT: 02702-[id number], Complete ([id number])
== END 2023-05-14 12:54 | disposition home or self-care (01) ==
PROVIDERS: PCP Internal Medicine; Visit Provider Internal Medicine
DX: Z01.810 Encounter for preprocedural cardiovascular examination (principal); R00.1 Bradycardia, unspecified
CPT/HCPCS: 93010; 99203

== ENCOUNTER → 2023-05-14 12:21 | Outpatient (BNVA) | payer MEDICAID, SELFPAY | PROVIDERS: PCP Internal Medicine; Visit Provider Internal Medicine | DX: Z01.810 Encounter for preprocedural cardiovascular examination (principal); R00.1 Bradycardia, unspecified | CPT/HCPCS: 93005; 99202 ==

== ENCOUNTER 2023-05-29 10:06 | Outpatient (AMB) | payer MEDICAID, SELFPAY ==
[2023-05-29 10:13] VITALS: BMI 33.1
--- NOTE | 2023-05-29 10:13 | A.OFFVIS_ITS ---
Jorge has severe arthritic changes on xray and cannot complete ADLs without pain. He has failed NSAIDs and additional conservative treatment. TKA is indicated. Intake Vital Signs 05/29/23 10:13 Height 6 ft Weight 244 lb BMI 33.1 Intake Visit Reasons: Preop RT TKA 06/03/23 NE Intake Note: Jorge 57 yr old male presents today for his pre-op visit for his Rt TKA schedule for 06/03/[address] Emerson. Pain management agreement signed and reviewed. Hungarian version given to patient as well. Allergies No Known Allergies Allergy (Verified 05/29/23 10:15) Medication List - Last Reconciled 05/29/23 by Anderson Grande PA-C metoprolol tartrate 25 mg PO BID walker Folding Front wheeled walker HPI Preop RT TKA 06/03/23 NE HPI Details ? HPI Comments History of Present Illness Details Mr Szymanski presents to the office today for preop visit. He is scheduled for right total hip arthroplasty with Dr. Emerson. He continues to have ongoing pain and difficulty with ambulation in the right hip, which is affecting his quality of life; therefore, he has elected to move forward with surgery. Previous visit with Dr Emerson 03/03/23 Jorge is a 57 year old man who presents with ~1-2 years worsening right knee pain He has pain with daily activity, worse with walking, and he is limited to walking ~5 minutes before having to rest due to his pain. He has been seen at an outside clinic for his knee, and has a Hx of steroid injections as well as currently using Celebrex for pain relief. He says neither of these treatments were helpful for his symptoms. He feels his QOL is diminished and he is unable to walk to the grocery store. He is otherwise healthy and is frustrated by his limitations. He has Rheumatoid arthritis and a Hx of right knee meniscus repair 5+ years ago.? PFSH Medical History HTN (hypertension) Surgical History H/O knee surgery H/O shoulder surgery Hx of colonoscopy Family History Mother HTN (hypertension) Sister Esophagus cancer Colon cancer Social History Are you a primary rn complex care to a significant other at home: No Do you presently have visiting nurse or other home services: No Alcohol intake: current Alcohol intake frequency: 0-2 drinks per day Alcohol type: beer Patient Tobacco Use Status: Never used Tobacco Substance Use Type: Marijuana Current occupational status: unemployed Current occupation: rt handed Review of Systems Const All systems reviewed & are unremarkable except as noted in HPI and below Physical Exam Vital Signs: BMI result Body Mass Index 33.1 Const General: cooperative, healthy appearing, comfortable, no acute distress, well developed and alert Orientation/consciousness: patient oriented x3 HEENT Head: Yes normal to inspection, Yes normocephalic and Yes atraumatic Eyes General: appearance normal, both eyes and all related structures Neck Neck: Yes normal visual inspection and Yes no lymphadenopathy Resp Effort & Inspection: normal respiratory effort and able to speak in complete sentences Cardio Rate: regular rate Peripheral pulses: Peripheral pulses 2+ throughout GI Inspection: Yes normal to inspection Palpation (GI): Soft to palpation Skin General skin exam: no rashes or lesions noted Neuro General: patient oriented x3 Extrem Other: Left knee: Skin is intact. There is no open wound or abrasion. ROM is 0-100 degrees. Calf supple, nontender. NVI. Psych Appearance: grossly normal Mental Status: mental status grossly normal Results Reviewed Results Reviewed: XR knee standing BI IMPRESSION: ? 1. There is marked degenerative change of the lateral joint space compartment of the right knee, and mild degenerative change is seen of the medial joint space compartment. ? 2. There is a mild valgus configuration of the right knee. ? 3. There is mild degenerative change of the medial joint space compartment of the left knee. Assessment & Plan Assessment & Plan (1) Osteoarthritis of right knee: Code(s): M17.11 - Unilateral primary osteoarthritis, right knee Plan: I discussed in detail the procedure and what to expect pre and post operatively. We discussed the risks, benefits and alternatives to the surgery as well as the rehabilitation course. The risks; which include, but are not limited to infection, bleeding, nerve injury, ongoing pain, swelling, and stiffness, perioperative risk of injury to bones and soft tissues, and blood clots. I?ve answered all questions and with their understanding they have consented to move forward with Right total knee arthroplasty with Dr. Emerson Coding Level of Care Code Est Pt Level 3 (81801) Diagnoses Osteoarthritis of right knee M17.11
== END 2023-05-29 10:35 | disposition home or self-care (01) ==
PROVIDERS: PCP Internal Medicine; Visit Provider Physician Assistant
DX: M17.11 Unilateral primary osteoarthritis, right knee (principal)
CPT/HCPCS: 99213

== ENCOUNTER → 2023-05-29 10:06 | Outpatient (BNVA) | payer MEDICAID, SELFPAY | PROVIDERS: PCP Internal Medicine; Visit Provider Physician Assistant | DX: Z01.818 Encounter for other preprocedural examination (principal); M17.11 Unilateral primary osteoarthritis, right knee | CPT/HCPCS: 99213 ==

== ENCOUNTER 2023-06-03 07:53 | Inpatient (IN) | payer MEDICAID, SELFPAY ==
[2023-05-27 11:58] VITALS: BP 130/69; PULSE 64; RESP 16; O2SAT 97; BMI 33.2
--- NOTE | 2023-05-27 12:27 | HO.ANESPROP2 ---
Documented by User: Suly Gomez NP 05/27/23 12:34 HPI - Anesthesia Eval Consult details Narrative: 57yo M for Right Knee Replacement Total Cardiac optimized No recent illness No CP/SOB with yard work ETOH ~ 2 beers daily Marijuana daily PMFSH Active Problems Active Problems: All Active Problems (Updated 05/14/23 @ 12:50 by Nabil Barros MD) Bilateral hand pain (Acute) Rotator cuff tear arthropathy of left shoulder (Acute) Rheumatoid factor positive (Acute) Rheumatoid arthritis (Acute) Osteoarthritis of right knee (Acute) Preoperative cardiovascular examination (Acute) Bradycardia (Acute) Past Medical History Medical History HTN (hypertension) Family History Family History Mother HTN (hypertension) Sister Esophagus cancer Colon cancer Family history of problems with anesthesia: No Surgical History Surgical History H/O knee surgery H/O shoulder surgery Hx of colonoscopy History of Problems with Anesthesia: No Social History Social History Are you a primary critical care specialist to a significant other at home: No Do you presently have visiting nurse or other home services: No Alcohol intake: current Alcohol intake frequency: 0-2 drinks per day Alcohol type: beer Patient Tobacco Use Status: Never used Tobacco Substance Use Type: Marijuana Current occupational status: unemployed Current occupation: rt handed Meds Allergies Allergy/AdvReac Type Severity Reaction Status Date / Time No Known Allergies Allergy Verified 06/03/23 08:45 Home Medications Medication Instructions Recorded Confirmed Last Taken Type metoprolol tartrate 25 mg tablet 25 mg PO BID 05/27/23 05/29/23 01/31/23 08:00 History Exam Exam Date and Time: May 27, 2023 1227 Height,Weight and Vital Signs: Height 6 ft Weight 111.13 kg Last Vital Signs Pulse 64 05/27/23 11:58 Resp 16 05/27/23 11:58 BP 130/69 05/27/23 11:58 Pulse Ox 97 05/27/23 11:58 O2 Del Method Room Air 05/27/23 11:58 Pertinent Lab Results Pertinent Lab Results: Laboratory Tests 05/13/23 05/13/23 11:07 11:07 WBC 7.2 Hgb 16.3 Hct 48.6 Plt Count 252 Sodium 138 Potassium 4.1 Chloride 105 Carbon Dioxide 25 BUN 15 Creatinine 0.88 Narrative Narrative: Per 05/2023 cardiac office visit note: EKG shows mild sinus bradycardia/prolonged [place], but it has been similar even in 2020. Last echocardiogram 2016 with LVEF of 60-65%.? No wall motion abnormalities and otherwise unremarkable. Last stress test 2017 shows no ischemic findings on the EKG with exercise capacity of 8.8 Mets.? Hypertensive blood pressure response. Airway Mallampati Class: I TM Dist: >3cm Neck ROM: Full Heart: RRR Lungs: CTAB Assessment and Plan Assessment Anesthesia Assessment: Anesthesia Plan Discussed and PAT Visit Final Anesthetic Review Family History of Problems with Anesthesia: No History of Problems with Anesthesia: No Documented by User: Rajiv Arreaga MD 06/03/23 07:42 PMFSH Past Medical History Medical History HTN (hypertension) Family History Family History Mother HTN (hypertension) Sister Esophagus cancer Colon cancer Surgical History Surgical History H/O knee surgery H/O shoulder surgery Hx of colonoscopy Social History Social History Are you a primary critical care specialist to a significant other at home: No Do you presently have visiting nurse or other home services: No Alcohol intake: current Alcohol intake frequency: 0-2 drinks per day Alcohol type: beer Patient Tobacco Use Status: Never used Tobacco Substance Use Type: Marijuana Current occupational status: unemployed Current occupation: rt handed Meds Allergies Allergy/AdvReac Type Severity Reaction Status Date / Time No Known Allergies Allergy Verified 06/03/23 08:45 Home Medications Medication Instructions Recorded Confirmed Last Taken Type metoprolol tartrate 25 mg tablet 25 mg PO BID 05/27/23 05/29/23 01/31/23 08:00 History Assessment and Plan Assessment Anesthesia Assessment: Smoking Cess. Discussed Final Anesthetic Review NPO: Yes ASA Class: III Final Preanesthetic Review: No Changes in Pt Med Stat, Meds/Allgs Chart Reviewed, Consent Obtained/Reviewed and Anes Risks/Benef Reviewed Patient Risk: Intermediate Procedure Risk: Intermediate Anesthetic Plan Anesthetic Plan: GA, Regional Block and Agree w/ Assess. and Plan Disposition: Standard PACU Documented by User: Benita Syed MD 06/03/23 10:25 [facility] Past Medical History Medical History HTN (hypertension) Family History Family History Mother HTN (hypertension) Sister Esophagus cancer Colon cancer Surgical History Surgical History H/O knee surgery H/O shoulder surgery Hx of colonoscopy Social History Social History Are you a primary critical care specialist to a significant other at home: No Do you presently have visiting nurse or other home services: No Alcohol intake: current Alcohol intake frequency: 0-2 drinks per day Alcohol type: beer Patient Tobacco Use Status: Never used Tobacco Substance Use Type: Marijuana Current occupational status: unemployed Current occupation: rt handed Meds Allergies Allergy/AdvReac Type Severity Reaction Status Date / Time No Known Allergies Allergy Verified 06/03/23 08:45 Home Medications Medication Instructions Recorded Confirmed Last Taken Type metoprolol tartrate 25 mg tablet 25 mg PO BID 05/27/23 05/29/23 01/31/23 08:00 History Exam Airway Mallampati Class: II Neck ROM: Limited
[2023-05-27 14:58] LABS: MRSA Nasal PCR NEGATIVE (Negative); SA Nasal PCR POSITIVE (Negative)
[2023-06-03] VITALS (23 sets, daily range): BP systolic 109–169; BP diastolic 54–84; PULSE 35–48; RESP 13–22; TEMP 36–36.4; O2SAT 97–100
--- NOTE | ~2023-06-03 | XR_ITS ---
EXAMINATION: XR KNEE, RIGHT CLINICAL INFORMATION: Status post right total knee arthroplasty. COMPARISON: Bilateral knee radiographs dated TECHNIQUE: Four views of the right knee. FINDINGS: The patient is status post right knee arthroplasty showing good anatomic alignment and no evidence for hardware malfunction. There is no acute fracture. Mild to moderate intra-articular and subcutaneous air is noted. Multiple superficial skin vipul are noted anteriorly. XR/XR knee RT 2V IMPRESSION: Post surgical changes. No hardware abnormality. No acute fracture.
[2023-06-03] MEDS: Lactated Ringers 1,000 ML 100 ML IVCONT ×2 (07:57→16:15)
[2023-06-03 08:28] LABS: Hematocrit 44.7 % (42.0-52.0); Hemoglobin 15.3 g/dl (14.0-18.0)
--- NOTE | 2023-06-03 09:08 | PC.NURSE ---
Dr. Syed aware that patient baseline pulse in sss was 47-48 and that patient stopped metoprolol in january due to feeling dizzy, cardiology noted this and no new meds were ordered. Patient states this is his baseline pulse. cardiology notes/clearance in chart.
--- NOTE | 2023-06-03 11:02 | MHC.SHP ---
Pre-Procedural Eval Section A Date of Service: 06/03/23 The patient is an INPATIENT: No Changes since office visit: No Cold of Flu in the past 2 weeks, No New Medical Problems, No Changes in Medication and No Patient answered all questions The History & Physical has been completed within 30 days and I have reviewed it.: Yes Section B Chief Complaint: Unilateral primary osteoarthritis, right knee Allergies: Allergies Allergy/AdvReac Type Severity Reaction Status Date / Time No Known Allergies Allergy Verified 06/03/23 08:45 Plan I have reviewed the history and physical and performed a pertinent physical examination on my patient. No changes have occurred unless specified. Time Spent With Patient Time: Total time managing care of this patient today ____ minutes.
--- NOTE | 2023-06-03 13:08 | PHA.MEDREC ---
Pharmacy Consult ? Medication Reconciliation Pharmacy has completed the medication reconciliation. Reviewed med rec done by nursing (Danielle).
--- NOTE | 2023-06-03 14:10 | P.BOP_ITS ---
Brief Operative Note Date of Service: 06/03/23 Pre-op diagnosis: Right knee OA Post-op diagnosis: same Procedure: Right TKA Implants: Kymberly Triathlon posterior stabilized cemented 02/05/11 Surgeon: Cullen Emerson MD Anesthesia: regional and spinal Was an Educational Assistant used for this Procedure?: Yes Educational Assistant: Anderson Grande Estimated blood loss (mL): 25 Tourniquet time (min): 75 IV fluids (mL): 1,000 Pathology: other Condition: stable Disposition: PACU
[2023-06-03] MEDS: oxyCODONE HCl Immed Release 5 MG TABLET PO ×2 (14:15→15:54)
[2023-06-03] MEDS: HYDROmorphone HCl 0.5 MG/0.5 ML SYRINGE 0.25 MG IVPUSH ×4 (14:15→14:55)
[2023-06-03] MEDS: ceFAZolin Sodium/Dextrose,Iso 2 GM/50 ML PIGGYBACK IV (16:04)
--- NOTE | 2023-06-03 16:31 | HO.PM.IMCN ---
History of Present Illness Data of Consult Service Date: 06/03/23 Requesting physician: Anderson Grande Primary Care Provider: MD JYOTI Meeks Reason for consult: medical management 57-year-old male with history of hypertension, first-degree AV jailyn block, bradycardia admitted to Orthopedic surgery for management of osteoarthritis of the right knee s/p right TKA with consult placed to hospitalist service for medical management. The patient is reporting uncontrolled pain and was just given additional oxycodone with improvement to 06/12. Orthopedic surgery is aware. He has no other complaints at this time. He is a regular alcohol drinker consuming 6-7 beers on a daily basis but has not consumed any alcohol in 8 days. He also smokes marijuana but denies any illicit drug use or cigarette smoking. he has been bradycardic into the 30s postop now 48. Denies any lightheadedness, shortness of breath, syncope, palpitations, or chest pain. Review of Systems Review of Systems: General: No fevers, malaise, unintentional weight loss HEENT: No blurred vision, diplopia. No sore throat, nasal congestion, rhinorrhea, sinus pain, ear pain Cardiovascular: No chest pain, palpitations, or leg edema Respiratory: No shortness of breath, wheezing, cough GI: No abdominal pain, nausea, vomiting, diarrhea, constipation, melena, hematochezia : No dysuria, hematuria, increased urinary frequency, decreased urinary output MSK: No myalgia, back pain. +right knee pain Neuro: No headaches, weakness, paresthesias Skin: No rashes or lesions PMFSH Medical History HTN (hypertension) Family History Mother HTN (hypertension) Sister Esophagus cancer Colon cancer Surgical History H/O knee surgery H/O shoulder surgery Hx of colonoscopy Social History Are you a primary health care coach to a significant other at home: No Do you presently have visiting nurse or other home services: No Alcohol intake: current Alcohol intake frequency: 0-2 drinks per day Alcohol type: beer Patient Tobacco Use Status: Never used Tobacco Substance Use Type: Marijuana Current occupational status: unemployed Current occupation: rt handed Meds Allergies Allergy/AdvReac Type Severity Reaction Status Date / Time No Known Allergies Allergy Verified 06/03/23 08:45 Active Medications: Current Medications Acetaminophen (Acetaminophen 325 Mg Tablet) 650 mg PO Q6H PRN PRN Reason: Pain, Mild (Pain Scale 1-3) Aspirin (Aspirin 325 Mg Tablet) 325 mg PO BID [facility] Celecoxib (Celecoxib 200 Mg Capsule) 200 mg PO BID [facility] Docusate Sodium (Docusate Sodium 100 Mg Capsule) 100 mg PO BID [facility] Hydromorphone HCl (Hydromorphone Hcl 0.5 Mg/0.5 Ml Syringe) 0.5 mg IVPUSH Q4H PRN; Protocol PRN Reason: Pain, Severe (Pain Scale 7-10) Cefazolin Sodium/Dextrose (Ancef) 2 gm in 50 mls @ 100 mls/hr IV POSTOP ONE Stop: 06/03/23 17:29 Last Admin: 06/03/23 16:04 Dose: 100 mls/hr Lactated Ringer's (Lr) 1,000 mls @ 100 mls/hr IVCONT .Q10H [facility] Stop: 06/04/23 12:42 Last Admin: 06/03/23 16:15 Dose: 100 mls/hr Acetaminophen (Ofirmev) 1,000 mg in 100 mls @ 400 mls/hr IV Q6H [facility] Stop: 06/04/23 10:14 Ondansetron HCl (Ondansetron Hcl 4 Mg/2 Ml Vial) 4 mg IVPUSH Q8H PRN PRN Reason: Nausea and Vomiting Oxycodone HCl (Oxycodone Hcl Immed Release 5 Mg Tablet) 10 mg PO Q4H PRN PRN Reason: Pain, Moderate(Pain Scale 4-6) Oxycodone HCl (Oxycodone Hcl Er 10 Mg Tab.Er.12h) 10 mg PO BID [facility] Sodium Chloride (0.9 % Sodium Chloride Flush 3 Ml Syringe) 3 ml IVFLUSH QSHIFT [facility] Last Admin: 06/03/23 16:16 Dose: Not Given Home Medications Medication Instructions Recorded Confirmed Last Taken Type metoprolol tartrate 25 mg tablet 25 mg PO BID 05/27/23 05/29/23 01/31/23 08:00 History Physical Exam Vital Signs and Narrative: Vital Signs: Last Vital Signs Temp 96.8 F 06/03/23 15:37 Pulse 48 L 06/03/23 15:37 Resp 20 06/03/23 15:37 BP 165/84 H 06/03/23 15:37 Pulse Ox 100 06/03/23 15:37 O2 Del Method Room Air 06/03/23 15:37 O2 Flow Rate 2 06/03/23 13:21 BMI result Body Mass Index 33.2 Constitutional - Awake and Alert, No apparent distress Eyes - PERRLA, EOMI Cardiovascular - S1S2, RRR, No edema Respiratory - Normal lung expansion, Normal respiratory effort, No respiratory distress, CTA bilaterally Gastrointestinal - NT / ND; +BS; No rebound or guarding Extremities - no calf tenderness bilaterally, no swelling Musculoskeletal - Normal inspection, post op bandage in place Skin - Warm/Dry Neurological - Alert & oriented x3 Psychological - Appropriate affect Results Labs 06/03/23 08:22 Imaging Radiologist's Impressions: Impressions Knee X-Ray 06/03/23 13:37 IMPRESSION: Post surgical changes. No hardware abnormality. No acute fracture. Assessment and Plan (1) Osteoarthritis of right knee: Status: Acute Plan 83-year-old female with history of hypertension, hypercholesterolemia, peripheral vascular disease, hypothyroidism, osteoarthritis, and osteoporosis admitted to Orthopedic surgery for management of osteoarthritis of the right knee s/p right TKA with consult placed hospitalist service for medical management. #OA right knee s/p right TKA POD 0 -plan per orthopedic surgery #Sinus bradycardia w/ 1st degree AV jailyn block -seen by cardiology pre op- benign -pt asymptomatic, no intervention needed -will keep on telemetry and monitor -Hold bb for now #HTN -reasonably controlled -hold bb as above #Alcohol use disorder -no etoh use in 8 days, outside window for withdrawal -counseled on cessation Thank you for this consult, will continue to follow. Time Spent With Patient Time: Total time managing care of this patient today ____ minutes.
[2023-06-03] MEDS: Acetaminophen 1,000 MG/100 ML PIGGYBACK 400 MG IV ×2 (16:38→20:58)
[2023-06-03] MEDS: oxyCODONE HCl ER 10 MG TAB.ER.12H PO (19:30)
[2023-06-03] MEDS: Celecoxib 200 MG CAPSULE PO (19:30)
[2023-06-03] MEDS: Docusate Sodium 100 MG CAPSULE PO (19:30)
[2023-06-03] MEDS: HYDROmorphone HCl 0.5 MG/0.5 ML SYRINGE IVPUSH (20:59)
--- NOTE | 2023-06-03 22:41 | PC.NURSE ---
Pts HR dropped to 35 while he was sleeping. He woke up to verbal stimuli. It looks like Pt HR has consistently been in the 30-40s all day. He states this is his normal and he has seen a senior network architect for it. HR currently in mid 40s. BP 169/70. HR 44, Temp 97.0 temporal, 99%RA. He recently received pain meds for R-knee. MD Blankenship notified.
[2023-06-03] MEDS: oxyCODONE HCl Immed Release 5 MG TABLET 10 MG PO (23:51)
[2023-06-04] MEDS: HYDROmorphone HCl 0.5 MG/0.5 ML SYRINGE IVPUSH ×4 (01:13→21:32)
[2023-06-04] MEDS: Lactated Ringers 1,000 ML 100 ML IVCONT ×2 (01:13→11:45)
[2023-06-04] MEDS: Acetaminophen 1,000 MG/100 ML PIGGYBACK 400 MG IV ×2 (02:56→09:09)
[2023-06-04] MEDS: oxyCODONE HCl Immed Release 5 MG TABLET 10 MG PO ×4 (02:57→15:44)
[2023-06-04 04:00] VITALS: BP 160/78; PULSE 40; RESP 16; TEMP 36.4; O2SAT 99
[2023-06-04 06:30] LABS: Anion Gap 15 (12-20); Blood Urea Nitrogen 10 mg/dL (9-16); Calcium 8.9 mg/dL (8.4-10.2); Carbon Dioxide 21 mmol/L (22-29); Chloride 100 mmol/L (96-108); Creatinine Clr Calc Pharmacy 136.3; Estimated Glomerular Filt Rate > 60; Glucose Fasting 128 mg/dL (60-99); Sodium 132 mmol/L (135-145)
[2023-06-04 06:40] LABS: Basophils Percent Auto 0.1 % (0-2); Eosinophils Percent Auto 0.1 % (0-4); Hematocrit 41.7 % (42.0-52.0); Hemoglobin 14.6 g/dl (14.0-18.0); Imm Gran Abs Auto 0.08 X10*3/uL (0.00-0.03); Imm Gran Pct Auto 0.6 % (0.0-0.4); Lymphocytes Absolute Auto 1.3 X10*3/uL (1.2-4.9); Lymphocytes Percent Auto 9.2 % (20-40); MANUAL DIFF FLAG SCAN; Mean Corpuscular Volume 94.3 fL (80.0-98.0); Mean Platelet Volume 10.4 fL (9.4-12.4); Monocytes Absolute Auto 1.5 X10*3/uL (0.1-1.2); Platelet Count 204 X10*3/uL (160-400); Red Blood Count 4.42 X10*6/uL (4.60-5.80); Red Cell Distribution Width 13.1 % (11.0-16.0); SCAN SMEAR FLAG 1
--- NOTE | 2023-06-04 07:08 | PM.PNORT ---
Subjective Subjective Date of Service: 06/04/23 Interval history: POD1 s/p RTKA. No overnight events. Patient is resting in bed comfortably. Pain managed. No additional complaints. Physical Exam Vital Signs: Vital Signs: Last Vital Signs Temp 97.6 F 06/04/23 04:00 Pulse 40 L 06/04/23 04:00 Resp 16 06/04/23 04:00 BP 160/78 H 06/04/23 04:00 Pulse Ox 99 06/04/23 04:00 O2 Del Method Room Air 06/04/23 04:00 O2 Flow Rate 2 06/03/23 13:21 BMI result Body Mass Index 33.2 Const: General: cooperative, healthy appearing and no acute distress Resp: Effort & Inspection: normal respiratory effort and able to speak in complete sentences Cardio: Rate: regular rate Peripheral pulses: Peripheral pulses 2+ throughout GI: Palpation (GI): Soft to palpation Skin: Lesions: no lesions Rashes: no rashes Extrem: Other: Rt knee Aquacel is c/d/i. Able to dorsi/plantar flex. NVI. Procedures Date of Service Date of Service: 06/04/23 Progress Note: A&P Assessment and plan (1) Status post total knee replacement, right: Status: Acute Plan Continue pain mgmnt Begin ASA for dvt ppx begin PT for RTKA Dispo planning-Pending PT eval, pain mgmnt Time Spent With Patient Time: Total time managing care of this patient today ____ minutes. Quality Stroke Does the patient have a stroke diagnosis?: No VTE Prior VTE?: No VTE Risk Level:: Medical - moderate - high VTE Device Contraindication: N/A - Device Ordered VTE Drug Contraindication: N/A - Med Ordered
[2023-06-04 07:55] VITALS: BP 170/79; PULSE 44; RESP 17; TEMP 36; O2SAT 99
[2023-06-04 08:34] LABS: SLIDE REVIEW VERIFIED
[2023-06-04] MEDS: Celecoxib 200 MG CAPSULE PO ×2 (09:10→19:45)
[2023-06-04] MEDS: oxyCODONE HCl ER 10 MG TAB.ER.12H PO ×2 (09:10→19:44)
[2023-06-04] MEDS: Docusate Sodium 100 MG CAPSULE PO ×2 (09:10→19:45)
[2023-06-04] MEDS: Aspirin 325 MG TABLET PO ×2 (09:10→19:44)
[2023-06-04] MEDS: 0.9 % Sodium Chloride Flush 3 ML SYRINGE IVFLUSH (09:12)
--- NOTE | 2023-06-04 13:05 | MHC.CM.PN ---
S/P RTKA He lives with his and family. He uses a walker. He is independent with ADLs. PT basilio recommends Home with services. [facility] has been referred. Patient declined the offer to complete a HCP. DP Home with services, family transport.
--- NOTE | 2023-06-04 13:11 | HO.POSTANES ---
Post Anesthesia Evaluation Post Anesthesia Evaluation Date of Service: 06/04/23 Vital Signs: Vital Signs Temp Pulse Resp BP Pulse Ox O2 Del Method 06/04/23 07:55 96.8 F 44 L 17 170/79 H 99 Room Air 06/04/23 04:00 97.6 F 40 L 16 160/78 H 99 Room Air Anesthesia: Nerve Block and General Mental Status: Awake Pain Control: Satisfactory Nausea/Vomiting: None Hydration: Adequate Anesthesia-Related Issues: No Anes. Related Issues
[2023-06-04 16:00] VITALS: BP 160/72; PULSE 52; RESP 18; TEMP 36.3; O2SAT 98
--- NOTE | 2023-06-04 16:51 | PM.EVENT ---
Event Note Date of Service: 06/04/23 Event Note: Continues with intermittent bradycardia, which is chronic. Pt remains asymptomatic. DC telemetry on discharge. Resume metoprolol on dicharge Thank you for allowing me to participate in this consult. Signing off at this time. Please do not hesitate to call for further questions. Time Spent With Patient Time: Total time managing care of this patient today ____ minutes.
[2023-06-04 20:00] VITALS: BP 164/70; PULSE 54; RESP 16; TEMP 36.3; O2SAT 95
[2023-06-05] MEDS: oxyCODONE HCl Immed Release 5 MG TABLET 10 MG PO ×2 (00:39→11:02)
[2023-06-05 03:00] VITALS: BP 143/73; PULSE 58; RESP 16; TEMP 36; O2SAT 98
[2023-06-05] MEDS: HYDROmorphone HCl 0.5 MG/0.5 ML SYRINGE IVPUSH ×2 (03:09→07:37)
[2023-06-05 06:44] LABS: MANUAL DIFF FLAG NO
[2023-06-05 06:52] LABS: Basophils Percent Auto 0.3 % (0-2); Eosinophils Percent Auto 0.4 % (0-4); Hematocrit 39.9 % (42.0-52.0); Hemoglobin 13.3 g/dl (14.0-18.0); Imm Gran Abs Auto 0.04 X10*3/uL (0.00-0.03); Imm Gran Pct Auto 0.4 % (0.0-0.4); Lymphocytes Absolute Auto 1.1 X10*3/uL (1.2-4.9); Mean Corpuscular HGB Conc 33.3 g/dl (31.0-36.0); Mean Corpuscular Hemoglobin 32.5 pg (27.0-33.0); Mean Corpuscular Volume 97.6 fL (80.0-98.0); Mean Platelet Volume 9.9 fL (9.4-12.4); Monocytes Absolute Auto 1.3 X10*3/uL (0.1-1.2); Neutrophils Absolute Auto 8.3 x10*3/uL (2.0-8.3); Neutrophils Percent Auto 76.9 % (45-73); Platelet Count 182 X10*3/uL (160-400); Red Blood Count 4.09 X10*6/uL (4.60-5.80); Red Cell Distribution Width 13.1 % (11.0-16.0); White Blood Count 10.8 X10*3/uL (4.8-10.8)
[2023-06-05 07:01] LABS: Anion Gap 15 (12-20); Blood Urea Nitrogen 9 mg/dL (9-16); Calcium 8.9 mg/dL (8.4-10.2); Carbon Dioxide 25 mmol/L (22-29); Chloride 99 mmol/L (96-108); Creatinine Clr Calc Pharmacy 134.6; Estimated Glomerular Filt Rate > 60; Glucose Fasting 109 mg/dL (60-99); Potassium 3.7 mmol/L (3.3-5.1); Sodium 135 mmol/L (135-145)
[2023-06-05 07:13] VITALS: BP 149/72; PULSE 60; RESP 18; TEMP 36.7; O2SAT 100
[2023-06-05] MEDS: 0.9 % Sodium Chloride Flush 3 ML SYRINGE IVFLUSH (07:37)
[2023-06-05] MEDS: oxyCODONE HCl ER 10 MG TAB.ER.12H PO (07:37)
[2023-06-05] MEDS: Docusate Sodium 100 MG CAPSULE PO (07:38)
[2023-06-05] MEDS: Aspirin 325 MG TABLET PO (07:38)
[2023-06-05] MEDS: Celecoxib 200 MG CAPSULE PO (07:38)
--- NOTE | 2023-06-05 09:03 | P.DS_ITS ---
DS: Providers Provider Date of Service: 06/05/23 Date of admission: 06/03/23 07:53 Primary care physician: Keke Encinas MD Consults: 06/03/23 15:14 Consult to Hospitalist Routine Comment: Consulting Provider: Hospitalist Reason For Exam: h/o bradycardia DS: Diagnosis Discharge Diagnosis (1) Status post total knee replacement, right: Status: Acute DS: Summary Hospital Course Hospital Course: The patient underwent a successful right total knee arthroplasty, they were transferred to PACU and then to the floor to recover. During their stay, their vitals were stable, afebrile at 98.1. Labs were unremarkable, H/H 13.3/39.9. POD 1 they were started on Aspirin 325mg po bid for DVT ppx, they also received Physical Therapy services twice a day. Prior to discharge, their dressing was changed, incision clean dry and intact, new Aquacel dressing applied and the plan was to be discharged home with [facility]NA services. Time Spent with Patient Time attestation: Total time managing care of this patient today ____ minutes. Discharge coordination time: Less than 30 minutes Quality: Safe Use of Opioids Does Pt have an Active Cancer Diagnosis on the Problem List?: No Quality: Stroke Does the patient have a stroke diagnosis?: No Physical Exam Vital Signs: Vital Signs: Last Vital Signs Temp 98.1 F 06/05/23 07:13 Pulse 60 06/05/23 07:13 Resp 18 06/05/23 07:13 BP 149/72 H 06/05/23 07:13 Pulse Ox 100 06/05/23 07:13 O2 Del Method Room Air 06/05/23 07:13 O2 Flow Rate 2 06/03/23 13:21 BMI result Body Mass Index 33.2 Const: General: cooperative, healthy appearing and no acute distress Resp: Effort & Inspection: normal respiratory effort and able to speak in complete sentences Cardio: Rate: regular rate Peripheral pulses: Peripheral pulses 2+ throughout GI: Palpation (GI): Soft to palpation Skin: Lesions: no lesions Rashes: no rashes Extrem: Other: Rt knee Aquacel is c/d/i. Able to dorsi/plantar flex. NVI. DS: Data Data Completed and Pending Pending studies at discharge: Pending at discharge 06/03/23 12:03 Surgical [PTH] Routine Labs on day of discharge: Laboratory Results - last 24 hr 06/05/23 06/05/23 06:36 06:36 WBC 10.8 RBC 4.09 L Hgb 13.3 L Hct 39.9 L MCV 97.6 MCH 32.5 MCHC 33.3 RDW 13.1 Plt Count 182 MPV 9.9 Immature Gran % (Auto) 0.4 Neut % (Auto) 76.9 H Lymph % (Auto) 10.0 L [place] % (Auto) 12.0 H Eos % (Auto) 0.4 Baso % (Auto) 0.3 Lymph # (Auto) 1.1 L [place] # (Auto) 1.3 H Eos # (Auto) 0.0 Baso # (Auto) 0.0 Abs Immat Gran (auto) 0.04 H Absolute Neuts (auto) 8.3 Absolute Nucleated RBC 0.000 Nucleated RBC % (auto) 0.0 Sodium 135 Potassium 3.7 Chloride 99 Carbon Dioxide 25 Anion Gap 15 BUN 9 Creatinine 0.77 Estim Creat Clear Calc 134.6 Estimated GFR > 60 Fasting Glucose 109 H Calcium 8.9 Discharge Plan Discharge Anticipated Discharge Date/Time: 06/05/23 09:01 Patient Disposition: Home Health Service Discharge Diagnosis: RT TKA Referrals: Anderson Grande PA-C [Physician Medical Malpractice Paralegal] - 2 Weeks (06/19/23 1:00 [facility] [place] [facility] Anderson Grande PA-C[place] Discharge Medications: New celecoxib 200 mg Capsule 200 mg PO BID 30 Days Qty: 60 2RF acetaminophen 325 mg Tablet 650 mg PO Q6H PRN (Reason: Pain, Mild (Pain Scale 1-3)) 30 Days Qty: 20 2RF aspirin 325 mg Tablet 325 mg PO BID 42 Days Qty: 84 0RF docusate sodium 100 mg Capsule 100 mg PO BID 14 Days Qty: 28 0RF oxycodone 10 mg tablet 10 mg PO Q4H PRN (Reason: Pain, Moderate(Pain Scale 4-6)) 7 Days Qty: 42 0RF Rx Instructions: Partial Fill upon patient request. [facility] See [facility] .MEDSUPPLY Qty: 1 0RF Rx Instructions: Folding Front wheeled walker metoprolol tartrate 25 mg tablet 25 mg PO BID Patient Comments: No longer taking, was making him dizzy. Discharge Orders: Discharge Order (Routine); Ordered 06/05/23 Ordered By: Zabrina Russell Activity on Discharge: Use cane or walker Stand Alone Forms: Patient Portal Discharge page Care Plan Goals: Restore function of joint Health Concerns: none Plan of Treatment: Physical Therapy Pain management DVT prophylaxis Assessment: Physical Therapy for Total knee arthroplasty: WBAT, gait training, ROM 0-12, quad strength * Limit stair climbing * No showering, no tub bath-keep dressing clean, dry and intact * No driving x6 weeks * Continue Aspirin twice a day x 6 weeks * Follow up with [facility] [place] [facility] [place] weeks:
--- NOTE | 2023-06-05 09:05 | W.MHC.F2F ---
Service Date Service Date: 06/05/23 Encounter Date of encounter: 06/05/23 Reasons for Services Signs and symptoms assessed: Pt. is considered homebound due to recent surgery. Unable to drive, poor balance, poor gait mechanics. S/p RTKA, Reason for physical therapy: home safety and mobility, therapeutic exercises, restore joint function, gait/transfer training, assess need for DME and ADL training Homebound: Leaving the home is medically contraindicated at this time without the asist of a device and/or another person due th the listed conditions above and below. Reason homebound: unsteady gait / fall risk, leg weakness, pain with ambulation, pain with transfers, poor balance / fall risk and unable to drive Certification: Based on the above findings, I certify that this patient is confined to the home and needs intermittent care home care, physical therapy and/or speech therapy, or continues to need occupational therapy. The patient is under my care, and I have initiated the establishment of the plan of care. The patient will be followed by a physician who will periodically review the plan of care. Time Spent With Patient Time: Total time managing care of this patient today ____ minutes.
[2023-06-05 09:50] VITALS: PULSE 105
--- NOTE | 2023-06-05 12:53 | MHC.CM.PN ---
RTKA discharged to home today via BLS. [facility] will provide Home services. They have been notified of the discharge today.
--- NOTE | 2023-06-06 16:04 | W.PM.OPN ---
Operative Note Operative Note Date of Service: 06/03/23 Narrative: Date of Service: 06/03/23 Pre-op diagnosis: Right knee OA Post-op diagnosis: same Procedure: Right TKA Implants: [place] [employer] posterior stabilized cemented 02/05/11 Surgeon: Cullen Emerson MD Anesthesia: regional and spinal Was an Homeland Security Program Specialist used for this Procedure?: Yes Homeland Security Program Specialist: Anderson Grande Estimated blood loss (mL): 25 Tourniquet time (min): 75 IV fluids (mL): 1,000 Pathology: other Condition: stable Disposition: PACU Procedure in detail: The patient was brought to the operating room and prepped and draped in standard sterile fashion. A time-out was called to identify proper site proper procedure proper surgeon and IV antibiotics were administered. 1 g of IV tranexamic acid was administered. I began by making a midline incision to the retinaculum and performed a medial parapatellar arthrotomy. The patella was translated laterally and the knee was flexed up.This was a contracted and tight knee with moderate valgus alignement. I performed a small medial peel and resected the infrapatellar fat pad. Galvin's line was then used to drill my intramedullary femoral guide and my distal femur cut of 12 mm was made in 5 degrees of valgus while protecting the soft tissues. I then measured a # 4 femur and placed my cutting guide and made my anterior posterior and chamfer cuts protecting the soft tissues at all times. I then made my box but removing the PCL. Once I was satisfied with my cuts I turned my attention to the tibia. I removed the meniscus medially and laterally and , using an external cutting guide, in line with the tibial crest and the third ray, I made my distal tibial cut in 0 deg slope of while protecting the posterior soft tissues at all times. An extension block was used to confirm appropriate amount of bony resection. I then sized a #5 tibia and once I was satisfied that there was complete tibial coverage I placed my trial and with the trial femur in place took the knee through range of motion. I was satisfied with the extension and flexion as well as the stability at 0, 30 and 90 degrees. I then turned my attention to the patella where I removed 1 cm from the undersurface of the patella and then trialed a 38a patellar button. Again the knee was taken through range of motion I was satisfied with the tracking. A femoral bone plug was placed and the knee was irrigated copiously. I then cemented the patella, tibia and femur in standard fashion while appliying axial compression. One the cement was dried and all excess cement was removed, I trialed different inserts until I selected a #11 insert. The final insert was placed and a 3 minutes iodine soak with local TXA was performed. A Werewolf cautery wand was used to maintain hemostasis over the capsule and meniscal beds, the gutters and peripatellar soft tissues. The knee was then closed with a running Quill suture, a 3 0 Vicryl and vipul on the skin. Patient was then placed in sterile dressing and brought to recovery room in stable condition there were no known complications.
== END 2023-06-05 14:07 | disposition home health service (06) | DRG 326 ==
LOC: HO.SSSA 07:54 → HO.S3 13:09
PROVIDERS: Physician Assistant; Admitting Provider Orthopaedic Surgery; PCP Internal Medicine; Visit Provider Orthopaedic Surgery
PROC: 0SRC0J9 Replacement of Right Knee Joint with Synthetic Substitute, Cemented, Open Approach (ICD-10-PCS; CPT 27447; principal; 2023-06-03 09:40)
DX: M17.11 Unilateral primary osteoarthritis, right knee (principal); F10.10 Alcohol abuse, uncomplicated; G47.33 Obstructive sleep apnea (adult) (pediatric); G89.18 Other acute postprocedural pain; I10 Essential (primary) hypertension; I44.0 Atrioventricular block, first degree; Z79.899 Other long term (current) drug therapy
CPT/HCPCS: 27447; 36415; 73560; 80048; 85014; 85018; 85025; 86850; 86900; 86901; 87640; 87641; 88305; 88311; 97110; 97116; 97161; C1713; C1776; J0131; J0690; J1170; J2250; J2795

== ENCOUNTER → 2023-06-03 07:53 | Outpatient (BNV) | payer MEDICAID, SELFPAY | PROVIDERS: Admitting Provider Orthopaedic Surgery; PCP Internal Medicine; Visit Provider Physician Assistant | DX: M17.11 Unilateral primary osteoarthritis, right knee (principal) | CPT/HCPCS: 99222; 99499 ==

== ENCOUNTER → 2023-06-03 07:53 | Outpatient (BNV) | payer MEDICAID, SELFPAY | PROVIDERS: Admitting Provider Orthopaedic Surgery; PCP Internal Medicine; Visit Provider Orthopaedic Surgery | DX: Z47.1 Aftercare following joint replacement surgery (principal); Z96.651 Presence of right artificial knee joint | CPT/HCPCS: 27447; 99231; 99238; G0180 ==

== ENCOUNTER 2023-06-19 13:22 | Outpatient (AMB) | payer MEDICAID, SELFPAY ==
--- NOTE | 2023-06-19 13:28 | MHC.OFFVIS ---
Intake Intake Visit Reasons: PO RT TKA 06/03/23 NE Intake Note: Jorge is a 57 year old male who presents today for a post operative right TKA on 06/03/23 NE. Patient reports he is doing well, states mild discomfort. Allergies No Known Allergies Allergy (Verified 06/19/23 13:31) HPI PO RT TKA 06/03/23 NE HPI Details 57-year-old male who returns to the office today for post-op right TKA, 06/03/[address] Emerson. He states he has mild discomfort but is doing well otherwise. He has no concerns today. [facility] Medical History HTN (hypertension) Osteoarthritis of right knee Surgical History H/O knee surgery H/O shoulder surgery Hx of colonoscopy Family History Mother HTN (hypertension) Sister Esophagus cancer Colon cancer Social History Household Members: Spouse and Children Housing: Apartment Are you a primary rn wound care to a significant other at home: No Do you presently have visiting nurse or other home services: No Alcohol intake: current Alcohol intake frequency: 0-2 drinks per day Alcohol type: beer Patient Tobacco Use Status: Never used Tobacco Substance Use Type: Marijuana service: No Current occupational status: unemployed Current occupation: rt handed Review of Systems Const All systems reviewed & are unremarkable except as noted in HPI and below Physical Exam Extrem Other: Right knee: Incision clean, dry and intact. Elizabeth are intact. No redness or drainage. ROM is 0-80 degrees. Calf supple, nontender. NVI. Assessment & Plan Assessment & Plan (1) Status post total knee replacement, right: Code(s): Z96.651 - Presence of right artificial knee joint Plan Jody removed, steri strips applied. He will begin to transition to Outpatient PT to continue working on Gait training, ROM and quad strength. No driving for another 4 weeks. He will require ppx abx for dental procedures. He will f/u in 4 weeks, sooner if needed. Orders: Orders PT Evaluation and Treatment Today Z96.651 - Presence of right artificial knee joint Patient Instructions: Scribed for Anderson Grande PA-C, by Prashanth Guy medical equipment repairer, on 06/19/2023 at 1:00 PM RENATO. Anderson Kamara PA-C, have personally reviewed and agree with the information entered by the scribe. Coding Level of Care Code Global (80688) Diagnoses Status post total knee replacement, right Z96.651
== END 2023-06-19 14:01 | disposition home or self-care (01) ==
LOC: HO.HOS 13:22
PROVIDERS: PCP Internal Medicine; Visit Provider Physician Assistant
DX: Z96.651 Presence of right artificial knee joint (principal)
CPT/HCPCS: 99024

== ENCOUNTER → 2023-06-19 13:22 | Outpatient (BNVA) | payer MEDICAID, SELFPAY | PROVIDERS: PCP Internal Medicine; Visit Provider Physician Assistant | DX: Z96.651 Presence of right artificial knee joint (principal) ==

== ENCOUNTER 2023-07-17 12:56 | Outpatient (AMB) | payer MEDICAID, SELFPAY ==
--- NOTE | 2023-07-17 13:10 | A.OFFVIS_ITS ---
Intake Intake Visit Reasons: PO RT TKA 06/03/23 NE Intake Note: [place] 57 year old male who presents today for a post operative right TKA, 06/03/23 NE. Patient reports he continues to attend PT. He states mild pain that is worse at night and after working with PT. Allergies No Known Allergies Allergy (Verified 07/17/23 13:11) HPI PO RT TKA 06/03/23 NE HPI Details 57-year-old male who returns to the [facility] today for post-op right TKA, 06/03/[address] Emerson. He states he has mild pain in his knee which is ag gravated at night and working with physical therapy. He continues to work with physical therapy as instructed. He is doing well otherwise and has no concerns today. [facility] Medical History HTN (hypertension) Osteoarthritis of right knee Surgical History Hx of colonoscopy H/O knee surgery H/O shoulder surgery Family History Mother HTN (hypertension) Sister Esophagus cancer Colon cancer Social History Household Members: Spouse and Children Housing: Apartment Are you a primary customer care consultant to a significant other at home: No Do you presently have visiting nurse or other home services: No Alcohol intake: current Alcohol intake frequency: 0-2 drinks per day Alcohol type: beer Patient Tobacco Use Status: Never used Tobacco Substance Use Type: Marijuana service: No Current occupational status: unemployed Current occupation: rt handed Review of Systems Const All systems reviewed & are unremarkable except as noted in HPI and below Physical Exam Extrem Other: Right knee: Incision well healed. Jody are intact. No redness or drainage. ROM is 0-110 degrees. Calf supple, nontender. NVI. Assessment & Plan Assessment & Plan (1) Status post total knee replacement, right: Code(s): Z96.651 - Presence of right artificial knee joint Plan He is going to continue working with physical therapy. He can begin driving when comfortable. I did refill his oxycodone and weaned him to every 8 hours. He is agreement to this and will continue to ween as needed. I would like to see him back in [address] Emerson and new x-rays, sooner if needed. Medications: Changed From oxycodone Partial Fill upon patient request. 5 mg PO Q4-6H 7 days PRN 42 tabs 0RF Pain, Moderate(Pain Scale 4-6) To oxycodone Partial Fill upon patient request. 5 mg PO Q8H PRN 21 tabs 0RF Pain, Moderate(Pain Scale 4-6) 7 days Patient Instructions: Scribed for Anderson Grande PA-C, by Prashanth Guy medical laboratory technical officer, on 07/17/2023 at 1:30 PM EST. I, Anderson Grande PA-C, have personally reviewed and agree with the information entered by the scribe. Coding Level of Care Code Global (78824) Diagnoses Status post total knee replacement, right Z96.651
== END 2023-07-17 13:30 | disposition home or self-care (01) ==
PROVIDERS: PCP Internal Medicine; Visit Provider Physician Assistant
DX: Z96.651 Presence of right artificial knee joint (principal)
CPT/HCPCS: 99024

== ENCOUNTER → 2023-07-17 12:56 | Outpatient (BNVA) | payer MEDICAID, SELFPAY | PROVIDERS: PCP Internal Medicine; Visit Provider Physician Assistant ==

== ENCOUNTER 2023-07-22 13:00 | Outpatient (RCR) | payer MEDICAID, SELFPAY ==
--- NOTE | 2023-08-25 14:38 | MHC.PT.DC ---
[facility] [place] Office [place] Office [place] [facility] [address] Marcelo Onofre [address] [phone] F: [phone] F: [phone] F: [phone] F: [phone] Physical Therapy Discharge Report Diagnosis: S/P RIGHT TKA (KP) Date of Surgery: 06/03/23 Date of Evaluation: 06/27/23 Date of Discharge: 07/26/23 Treatments to Date: 4 Cancellations to Date: 5 No Shows to Date: 2 Discharge Status: Patient Elected to Stop Visit Non-compliance Discharge Summary: Pt with multiple cancels and no shows. No showed for last scheduled visit and is DCed for non-compliance. Electronically signed by: Gladys Lozada PT DPT Please sign and return to therapist. Thank you for your referral.
== END 2023-08-25 14:37 | disposition home or self-care (01) ==
LOC: HO.PT 13:00
PROVIDERS: PCP Internal Medicine; Visit Provider Physician Assistant
DX: Z96.651 Presence of right artificial knee joint (principal)
CPT/HCPCS: 97110; 97161; 97530

== ENCOUNTER 2023-08-18 15:12 | Outpatient (AMB) | payer MEDICAID, SELFPAY ==
--- NOTE | 2023-08-18 15:13 | MHC.OFFVIS ---
Intake Intake Visit Reasons: PO-RT TKA 06/03/23 with NE with xrays Intake Note: This is a 57 year old male who presents for a follow up for a right TKA on 06/03/[address] Emerson. He had xrays updated in our office today. He reports some discomfort on the sides of his knees. He thinks he may need some more physical therapy and he also reports increased pain in his left knee. Allergies No Known Allergies Allergy (Verified 08/18/23 15:29) Medication List - Last Reconciled 08/18/23 by Gilda Lozoya RN acetaminophen 650 mg (2 x 325 mg) PO Q6H PRN 30 days aspirin 325 mg PO BID 42 days celecoxib 200 mg PO BID 30 days docusate sodium 100 mg PO BID 14 days metoprolol tartrate 25 mg PO BID oxycodone 5 mg PO BID PRN 7 days walker Folding Front wheeled walker HPI PO-RT TKA 06/03/23 with NE with xrays HPI Details Jorge is a 57 year old man who presents ~10 weeks S/P right TKA. He says he is doing better, but he complains about some pain on the side of his knee. Most of his pain occurs at night and is affecting his sleep. He has completed his course of PT but would like to resume as he feels this is helping him. He also complains about worsening left knee pain, and is unsure if this is related to his recovery. [facility] Medical History HTN (hypertension) Osteoarthritis of right knee Surgical History Hx of colonoscopy H/O knee surgery H/O shoulder surgery Family History Mother HTN (hypertension) Sister Esophagus cancer Colon cancer Social History Household Members: Spouse and Children Housing: Apartment Are you a primary customer care representative to a significant other at home: No Do you presently have visiting nurse or other home services: No Alcohol intake: current Alcohol intake frequency: 0-2 drinks per day Alcohol type: beer Patient Tobacco Use Status: Never used Tobacco Substance Use Type: Marijuana service: No Current occupational status: unemployed Current occupation: rt handed Review of Systems Const All systems reviewed & are unremarkable except as noted in HPI and below Physical Exam Const General: no acute distress, alert and awake Orientation/consciousness: patient oriented x3 HEENT Head: Yes normocephalic and Yes atraumatic Eyes EOM: EOMs intact bilaterally Resp Effort & Inspection: normal respiratory effort and able to speak in complete sentences Cardio Jugular venous distension: no JVD Skin General skin exam: turgor normal Rashes: no rashes Neuro General: patient oriented x3 Extrem Other: Right Knee: Well-healed incision 0-130 deg no effusion Psych Appearance: grossly normal Affect: normal affect Attitude: cooperative Results Reviewed Results Reviewed: I personally reviewed relevant radiographs. Right total knee arthroplasty in expected post operative position with no hardware complications or evidence of loosening Assessment & Plan Assessment & Plan (1) Status post total knee replacement, right: Code(s): Z96.651 - Presence of right artificial knee joint Plan: This is a 57 year old man S/P right TKA, DOS: 06/03/23. He is doing well, with some pain that occurs primarily at night. He has completed PT and may continue HEP. I wrote him for gabapentin 300mg qhs for painful sleep. f/u 6 weeks Plan Scribed for Cullen Emerson MD by Sujit Matute, medical donation professional, on 08/18/23 at 3:40 PM, EST. Orders: Orders XR knee RT 2V 08/18/23 M25.569 - Pain in unspecified knee XR knee standing BI 08/18/23 M25.569 - Pain in unspecified knee Medications: New gabapentin 300 mg PO BEDTIME 30 caps 0RF Coding Level of Care Code Global (38760) Diagnoses Status post total knee replacement, right Z96.651
== END 2023-08-18 15:44 | disposition home or self-care (01) ==
PROVIDERS: PCP Internal Medicine; Visit Provider Orthopaedic Surgery
DX: Z96.651 Presence of right artificial knee joint (principal)
CPT/HCPCS: 99024

== ENCOUNTER 2023-08-18 15:12 | Outpatient (REF) | payer MEDICAID, SELFPAY ==
--- NOTE | ~2023-08-18 | XR_ITS ---
EXAMINATION: XR knee standing BI, XR knee RT 2V CLINICAL INFORMATION: Male of 57 years with history of total knee replacement with pain COMPARISON: Most recent right knee radiograph: 06/03/2023 TECHNIQUE: AP, weightbearing bilateral, lateral and sunrise views FINDINGS: Patient is status post total knee replacement with patellar resurfacing on the right. The prosthesis is well aligned there is mild suprapatellar fullness due to small joint effusion. There is small osseous fragment in the soft tissues of the distal thigh, adjacent to the distal femoral shaft, not seen on the previous studies and most likely calcification or small osseous fragment. XR/XR knee RT 2V IMPRESSION: Status post right total knee replacement with patellar resurfacing. Small joint effusion. Small osseous fragment or calcification in the soft tissues adjacent to the distal femoral shaft.
--- NOTE | ~2023-08-18 | XR_ITS ---
EXAMINATION: XR knee standing BI, XR knee RT 2V CLINICAL INFORMATION: Male of 57 years with history of total knee replacement with pain COMPARISON: Most recent right knee radiograph: 06/03/2023 TECHNIQUE: AP, weightbearing bilateral, lateral and sunrise views FINDINGS: Patient is status post total knee replacement with patellar resurfacing on the right. The prosthesis is well aligned there is mild suprapatellar fullness due to small joint effusion. There is small osseous fragment in the soft tissues of the distal thigh, adjacent to the distal femoral shaft, not seen on the previous studies and most likely calcification or small osseous fragment. XR/XR knee standing BI IMPRESSION: Status post right total knee replacement with patellar resurfacing. Small joint effusion. Small osseous fragment or calcification in the soft tissues adjacent to the distal femoral shaft.
== END 2023-08-18 15:13 | disposition home or self-care (01) ==
LOC: HO.HOSX 15:12
PROVIDERS: PCP Internal Medicine; Visit Provider Orthopaedic Surgery
DX: Z47.1 Aftercare following joint replacement surgery (principal); Z96.651 Presence of right artificial knee joint
CPT/HCPCS: 73560; 73565

== ENCOUNTER 2023-09-29 07:59 | Outpatient (AMB) | payer MEDICAID, SELFPAY ==
--- NOTE | 2023-09-29 08:22 | A.OFFVIS_ITS ---
Intake Intake Visit Reasons: OV-RT TKA 06/03/23 with NE with xrays Intake Note: This is a 57 year old male who presents for a follow up for a right TKA on 06/03/[address] Emerson. Patient reports that he is doing well, feels some popping sounds in the knee with ambulation. Allergies No Known Allergies Allergy (Verified 08/18/23 15:29) HPI OV-RT TKA 06/03/23 with NE with xrays HPI Details Jorge is a 57 year old man who presents ~4 months S/P right TKA. He says he is doing better, and his pain has improved. He reports a popping sensation in his knee with ambulation. He has been taking Gabapentin before bed and this has helped his sleep and nighttime pain. He has completed his course of PT. He also complains about worsening left knee pain, and is unsure if this is related to his recovery. [facility] Medical History Osteoarthritis of right knee HTN (hypertension) Surgical History Hx of colonoscopy H/O knee surgery H/O shoulder surgery Family History Mother HTN (hypertension) Sister Esophagus cancer Colon cancer Household Members: Spouse and Children Housing: Apartment Are you a primary family day care worker to a significant other at home: No Do you presently have visiting nurse or other home services: No Alcohol intake: current Alcohol intake frequency: 0-2 drinks per day Alcohol type: beer Patient Tobacco Use Status: Never used Tobacco Substance Use Type: Marijuana service: No Current occupational status: unemployed Current occupation: rt handed Review of Systems Const All systems reviewed & are unremarkable except as noted in HPI and below Physical Exam Const General: no acute distress, alert and awake Orientation/consciousness: patient oriented x3 HEENT Head: Yes normocephalic and Yes atraumatic Eyes EOM: EOMs intact bilaterally Resp Effort & Inspection: normal respiratory effort and able to speak in complete sentences Cardio Jugular venous distension: no JVD Skin General skin exam: turgor normal Rashes: no rashes Neuro General: patient oriented x3 Extrem Other: Right Knee: Well-healed incision 0-130 deg no effusion Psych Appearance: grossly normal Affect: normal affect Attitude: cooperative Results Reviewed Results Reviewed: I personally reviewed relevant radiographs. Right total knee arthroplasty in expected post operative position with no hardware complications or evidence of loosening Assessment & Plan Assessment & Plan (1) Status post total knee replacement, right: Comment: 06/03/23 Code(s): Z96.651 - Presence of right artificial knee joint Plan: This is a 57 year old man S/P right TKA, DOS: 06/03/23. He is doing well, his nighttime pain has improved, and he is happy with the results of his surgery. He has completed PT. I recommend he remain active as tolerated. He can follow up prn. Discussed dental prophylaxis. Coding Level of Care Code Global (12262) Diagnoses Status post total knee replacement, right Z96.651
== END 2023-09-29 09:01 | disposition home or self-care (01) ==
PROVIDERS: PCP Internal Medicine; Visit Provider Orthopaedic Surgery
DX: Z47.1 Aftercare following joint replacement surgery (principal); Z96.651 Presence of right artificial knee joint
CPT/HCPCS: 99213

== ENCOUNTER → 2023-09-29 07:59 | Outpatient (BNVA) | payer MEDICAID, SELFPAY | PROVIDERS: PCP Internal Medicine; Visit Provider Orthopaedic Surgery | DX: Z47.1 Aftercare following joint replacement surgery (principal); Z96.651 Presence of right artificial knee joint | CPT/HCPCS: 99212 ==

== ENCOUNTER 2024-01-01 06:12 | Emergency (ER) | payer MEDICAID, SELFPAY ==
--- NOTE | ~2024-01-01 | XR_ITS ---
EXAMINATION: XR FINGER, LEFT CLINICAL INFORMATION: Left index finger injury. COMPARISON: Left hand radiograph 05/22/2021 TECHNIQUE: AP left hand, oblique and lateral radiographs of the left second metacarpal phalanx FINDINGS: Marked soft tissue prominence is present adjacent to the second proximal interphalangeal joint, predominantly along the dorsal margin of the joint. No soft tissue emphysematous changes identified. Soft tissue prominence is noted in the region of the second distal interphalangeal joint. Chronic appearing well-corticated rounded ossific bodies and osteophytosis is noted in association with the second proximal interphalangeal joint. Mild joint space narrowing is noted in association with the second proximal interphalangeal joint. Joint space narrowing and mild osteophytosis of the second distal interphalangeal joint is present. Several punctate well-corticated ossific bodies are present in projection with the dorsal and volar margins of the distal metaphysis of the second middle phalanx and are sufficiently far from the dorsal plate of the distal phalanx to being consistent with related acute avulsion fractures. XR/XR finger LT min 2V IMPRESSION: Acute appearing soft tissue inflammatory changes centered in the region of the second proximal interphalangeal joint. No acute fractures or embedded radiopaque foreign bodies. Of note, prominent chronic appearing arthropathic changes of the second proximal interphalangeal joint are present and mild chronic arthropathic changes of the second distal interphalangeal joint are noted.
[2024-01-01 06:14] VITALS: BP 152/80; PULSE 63; RESP 16; TEMP 36.5; O2SAT 98; BMI 33.9
--- NOTE | 2024-01-01 07:11 | ED.SKABFB ---
HPI - Skin/Abscess/Foreign Bdy General Chief complaint: General Medical Stated complaint: Finger inj Time Seen by Provider: 01/01/24 07:04 Source: patient Mode of arrival: ambulatory Limitations: no limitations History of Present Illness HPI narrative: 58 yo male with PMH Of RA, arthritis, HTN here with c/o L index finger joint pain and swelling after puncture wound 1 week ago. He notes increased swelling over 3 days can move finger but due to swelling it is painful. He denies fevers, chills. He is R hand dominant. MD complaint: other (joint pain) Onset (ago): week(s) (1) Tetanus up to date: yes Location: LUE Severity: mild Quality: aching Pain Consistency: constant Relieving factors: none Exacerbating factors: movement Context: other (direct trauma) Associated symptoms: denies other symptoms Treatments prior to arrival: none Related Data Home Medications Medication Instructions Recorded Confirmed metoprolol tartrate 25 mg tablet 25 mg PO BID 05/27/23 08/18/23 Previous Rx's Medication Instructions Recorded walker #1 ea 05/21/23 aspirin 325 mg tablet 325 mg PO BID 42 days #84 tabs 06/04/23 celecoxib 200 mg capsule 200 mg PO BID 30 days #60 caps 06/04/23 docusate sodium 100 mg capsule 100 mg PO BID 14 days #28 caps 06/04/23 acetaminophen 325 mg tablet 650 mg (2 x 325 mg) PO Q6H PRN 06/19/23 Pain, Mild (Pain Scale 1-3) 30 days #20 tabs oxycodone 5 mg tablet 5 mg PO BID PRN Pain, 08/13/23 Moderate(Pain Scale 4-6) 7 days #14 tabs gabapentin 300 mg capsule 300 mg PO BEDTIME #30 caps 08/19/23 cephalexin 500 mg capsule 500 mg PO QID 7 days #28 caps 01/01/24 Allergies Allergy/AdvReac Type Severity Reaction Status Date / Time No Known Allergies Allergy Verified 08/18/23 15:29 Review of Systems Review of Systems: Constitutional : No Fever, No Chills Cardiovascular : No Chest Pain, No SOB Respiratory : No Cough, No Dyspnea Gastrointestinal : No Nausea, No Vomiting, No Diarrhea, No abdominal Pain Genitourinary : No Dysuria, No Hematuria Musculoskeletal : positive joint pain, No Myalgias, pos Joint Swelling Skin : No Skin lacerations, No rash Neuro : No Weakness, No Numbness, No Loss of Consciousness, No Dizziness, No Headache Psych : No Anxiety/Panic, No Depression All other systems reviewed and are negative [facility] Past Medical History Attestation statement: The following information was validated with the patient. Source: old records reviewed Medical History Osteoarthritis of right knee HTN (hypertension) Surgical History Hx of colonoscopy H/O knee surgery H/O shoulder surgery Family History Family History Mother HTN (hypertension) Sister Esophagus cancer Colon cancer Social History Social History Household Members: Spouse and Children Housing: Apartment Are you a primary women's health care nurse practitioner to a significant other at home: No Do you presently have visiting nurse or other home services: No Alcohol intake: current Alcohol intake frequency: 0-2 drinks per day Alcohol type: beer Patient Tobacco Use Status: Never used Tobacco Substance Use Type: Marijuana Advance Directives: No service: No Current occupational status: unemployed Current occupation: rt handed Physical Exam Vital Signs: Vital Signs: Last Vital Signs Temp 97.7 F 01/01/24 06:14 Pulse 63 01/01/24 06:14 Resp 16 01/01/24 06:14 BP 152/80 H 01/01/24 06:14 Pulse Ox 98 01/01/24 06:14 O2 Del Method Room Air 01/01/24 06:14 BMI result Body Mass Index 33.9 Appearance: Alert. Oriented X3. No acute distress. Eyes: Pupils equal, round and reactive to light. ENT: Pharynx normal. Neck: Normal inspection. CVS: Normal heart rate and rhythm. Pulses normal. Respiratory: No respiratory distress. Breath sounds normal. Abdomen: Soft and non-tender. Skin: Skin warm and dry. Normal skin color. . Extremities: No lower extremity edema. L index finger prox phalanx has mild redness no warmth healing puncture wound no fluctuance but it is swollen and he has pain with ROM but can range it ext and flexor tendon intact. Neuro: Oriented X 3. No motor deficit. No sensory deficit. Medical Decision Making Medical Decision Making MDM Narrative: 58 yo male with PMH Of RA, arthritis, HTN here with c/o L index finger joint pain and swelling after direct trauma - no signs of extending infection or erythema no flexor tendon sheath swelling no systemic symptoms at this time will need oral antbiotics follow up and xray for FB. He has normal ROM and is not toxic. Differential Diagnosis Differential Diagnoses: The differential diagnosis associated with the presentation includes contusion, FB, infection no concern for extensor or flexor tendon injury no signs of septic joint Independent Interpretation I performed an independent interpretation of an: Plain X-Ray (no FB or fracture) Radiology Impression Discussion of test interpretation with radiology: I discussed test interpretation with the radiologist and I have reviewed the radiologist's reading. External Record Review External record reviewed: Inpatient record Prescription Management I considered prescription management with: Antibiotic Discharge Plan Discharge Clinical Impression: Contusion of finger of left hand Qualifiers: Encounter type: initial encounter Finger: index finger Damage to nail status: with damage Qualified Code(s): S60.122A - Contusion of left index finger with damage to nail, initial encounter Cellulitis Qualifiers: Site of cellulitis: extremity Site of cellulitis of extremity: finger Laterality: left Qualified Code(s): L03.012 - Cellulitis of left finger Patient Disposition: Home, Self-Care Instructions: Cellulitis (ED), Contusion in Adults (ED) Additional Instructions: no metal or fracture on xray. finish antibiotics. return for worsening symptoms, pain, fevers, increased swelling or redness to the fingers. sin metal ni fractura en la radiograf?a. terminar los antibi?ticos. Regrese si los s?ntomas empeoran, dolor, fiebre, aumento de la hinchaz?n o enrojecimiento de los dedos. Prescriptions: New cephalexin 500 mg capsule 500 mg PO QID 7 Days Qty: 28 0RF No Action (DME) walker Misc See Rx Instructions .MEDSUPPLY Qty: 1 0RF Rx Instructions: Folding Front wheeled walker acetaminophen 325 mg tablet 650 mg PO Q6H PRN (Reason: Pain, Mild (Pain Scale 1-3)) 30 Days Qty: 20 2RF oxycodone 5 mg tablet 5 mg PO BID PRN (Reason: Pain, Moderate(Pain Scale 4-6)) 7 Days Qty: 14 0RF Rx Instructions: Partial Fill upon patient request. metoprolol tartrate 25 mg tablet 25 mg PO BID Patient Comments: No longer taking, was making him dizzy. celecoxib 200 mg Capsule 200 mg PO BID 30 Days Qty: 60 2RF aspirin 325 mg Tablet 325 mg PO BID 42 Days Qty: 84 0RF docusate sodium 100 mg Capsule 100 mg PO BID 14 Days Qty: 28 0RF gabapentin 300 mg capsule 300 mg PO BEDTIME Qty: 30 0RF Print Language: Belarusian
[2024-01-01] MEDS: cephALEXin 500 MG CAPSULE PO (08:02)
== END 2024-01-01 08:13 | disposition home or self-care (01) ==
PROVIDERS: Emergency Provider Emergency Medicine; PCP Internal Medicine
DX: S60.122A Contusion of left index finger with damage to nail, initial encounter (principal); L03.012 Cellulitis of left finger; X58.XXXA Exposure to other specified factors, initial encounter; Y93.9 Activity, unspecified; Y92.9 Unspecified place or not applicable; Y99.8 Other external cause status
CPT/HCPCS: 73140; 99282; 99283

== ENCOUNTER 2024-05-14 19:56 | Emergency (ER) | payer SELFPAY ==
--- NOTE | ~2024-05-14 | XR_ITS ---
EXAMINATION: XR HAND, RIGHT CLINICAL INFORMATION: Injury with fishhook. COMPARISON: Right hand radiographs dated 05/23/2021. TECHNIQUE: PA, lateral, and oblique views of the right hand. FINDINGS: Bony alignment and mineralization are normal. There is osteoarthritic change of the interphalangeal joint of the thumb, of the second, third and fifth distal interphalangeal joints and of the second through fourth proximal interphalangeal joints. There is mild osteoarthritic change of the first through third metacarpophalangeal joints and of the first carpometacarpal joint. No fracture or dislocation is seen. There is generalized soft tissue swelling of the fingers. A fishhook point, елена and bend are noted within the proximal, medial right fifth finger soft tissues. The shank and eye of the fishhook have broken off. XR/XR hand RT min 3V IMPRESSION: 1. A fishhook point, елена and bend are noted within the proximal, medial right fifth finger soft tissues. 2. No fracture or dislocation is seen. 3. There are multi-level degenerative changes of the right hand and wrist.
[2024-05-14 20:04] VITALS: BMI 32.5
[2024-05-14 20:09] VITALS: BP 125/77; PULSE 77; RESP 16; TEMP 37.1; O2SAT 94
--- NOTE | 2024-05-14 21:35 | ED.GENADULT ---
HPI - General Adult General Chief complaint: Skin/Abscess/Foreign Body Stated complaint: Fish hook in finger Time Seen by Provider: 05/14/24 21:10 Source: patient History of Present Illness HPI narrative: 58-year-old male with a history of rheumatoid arthritis presents for evaluation of a fishhook that got stuck into his right hand. Patient states he was throwing away a chair into his truck and did not realize there was a fish hook within it. It got stuck on his hand. The incident occurred earlier this afternoon. He is up-to-date on tetanus. He is right-hand dominant. He was unable to remove it on its own. Denies any paresthesias or paralysis. He does report localized pain to where it was in his skin. No history of diabetes Related Data Home Medications ?Medication ?Instructions ?Recorded ?Confirmed metoprolol tartrate 25 mg tablet 25 mg PO BID 05/27/23 08/18/23 Previous Rx's ?Medication ?Instructions ?Recorded walker #1 ea 05/21/23 aspirin 325 mg tablet 325 mg PO BID 42 days #84 tabs 06/04/23 celecoxib 200 mg capsule 200 mg PO BID 30 days #60 caps 06/04/23 docusate sodium 100 mg capsule 100 mg PO BID 14 days #28 caps 06/04/23 acetaminophen 325 mg tablet 650 mg (2 x 325 mg) PO Q6H PRN 06/19/23 Pain, Mild (Pain Scale 1-3) 30 days #20 tabs oxycodone 5 mg tablet 5 mg PO BID PRN Pain, 08/13/23 Moderate(Pain Scale 4-6) 7 days #14 tabs gabapentin 300 mg capsule 300 mg PO BEDTIME #30 caps 08/19/23 cephalexin 500 mg capsule 500 mg PO QID 7 days #28 caps 01/01/24 bacitracin zinc 500 unit/gram 1 appl topical TID #14 grams 05/14/24 topical ointment doxycycline monohydrate 100 mg 100 mg PO BID 10 days #20 caps 05/14/24 capsule Allergies Allergy/AdvReac Type Severity Reaction Status Date / Time No Known Allergies Allergy Verified 05/14/24 20:05 Review of Systems Review of Systems: Pain to the right hand, dorsum of 5th digit. Otherwise negative [facility] Past Medical History Medical History Osteoarthritis of right knee HTN (hypertension) Surgical History Hx of colonoscopy H/O knee surgery H/O shoulder surgery Family History Family History Mother HTN (hypertension) Sister Esophagus cancer Colon cancer Social History Social History Household Members: Spouse and Children Housing: Apartment Are you a primary cardiac care unit nurse to a significant other at home: No Do you presently have visiting nurse or other home services: No Alcohol intake: current Alcohol intake frequency: 0-2 drinks per day Alcohol type: beer Patient Tobacco Use Status: Never used Tobacco Substance Use Type: Marijuana Advance Directives: No Advance Directives Information Provided: No Do you have a plan to hurt others: No Plan service: No Current occupational status: unemployed Current occupation: rt handed Physical Exam ED Vital Signs: Vital Signs - 24 hr 05/14/24 20:09 Temperature 98.8 F Pulse Rate 77 Respiratory Rate 16 Blood Pressure 125/77 Pulse Oximetry 94 Oxygen Delivery Method Room Air BMI result Body Mass Index 32.5 Skin Other: There is a metallic patient hook imbedded in the soft tissue on the dorsum of the right hand at the base of the 5th digit over the MCP. Radial pulses are +2 and equal bilaterally. Capillary refills less than 2 seconds. Full range of motion of all digits on the right hand. Dorsiflexion and plantar flexion abduction adduction are intact. Medications Administered Discontinued Medications Generic Name Dose Route Start Last Admin Trade Name Ken PRN Reason Stop Dose Admin Bacitracin 1 appl 05/14/24 21:49 05/14/24 21:56 Bacitracin Oint 0.9 Gm Packet TOPICAL 05/14/24 21:50 1 appl ONCE ONE Administration Protocol Lidocaine HCl 2 ml 05/14/24 21:40 05/14/24 21:52 Lidocaine Hcl 2% 2 Ml Vial INFILTRATI 05/14/24 21:41 2 ml ONCE ONE Administration Procedures Foreign Body Removal Time Out Performed: yes Site: right Description of foreign body: fish hook Sedation/Analgesia: other (Lidocaine 2%, localized infiltration.) Technique: manual removal, removal with forceps and incision made to facilitate removal Confirmed by:: direct visualization and radiograph Complications: none Post-procedure exam: awake, alert Neurovascular: normal distal pulse, normal capillary fill, distal light touch sensation intact, distal motor function normal and no signs of compartment syndrome Medical Decision Making Medical Decision Making MDM Narrative: 58-year-old male who accidentally was stuck with a fish hook in the right hand. X-ray confirms soft tissue placement. See procedure note, removed in its entirety on 1st attempt without complication. Patient tolerated procedure without difficulty. Given the nature of the patient's work and extent at the object was in his hand, patient will be placed on antibiotics. First dose of doxycycline given now. Reviewed all discharge instructions. No further questions at this time. Differential Diagnosis Differential Diagnoses: The differential diagnosis associated with the presentation includes Foreign body Fracture Cellulitis Abscess Independent Interpretation I performed an independent interpretation of an: Plain X-Ray Interpretation: No fracture, positive fish hook in the soft tissue Discharge Plan Discharge Clinical Impression: Fishing hook foreign body Qualifiers: Encounter type: initial encounter Qualified Code(s): W45.8XXA - Other foreign body or object entering through skin, initial encounter Patient Disposition: Home, Self-Care Instructions: Acute Wounds (ED) Additional Instructions: Wash the hands thoroughly and with warm water and antibacterial soap. Change bandage at least twice daily or whenever it gets dirty. Pat dry. Antibiotic ointment and a bandage. Doxycycline as directed. Finish all antibiotics. Watch for severe pain, redness, streaking or any other discharge return immediately to the emergency department. Follow-up with your primary care provider. Call this week to schedule a follow-up appointment. Return to the emergency department if you have any worsening of symptoms, or any concerns. Get well soon! Prescriptions: New doxycycline monohydrate 100 mg capsule 100 mg PO BID 10 Days Qty: 20 0RF bacitracin zinc 500 unit/gram ointment 1 appl topical TID Qty: 14 0RF No Action (DME) walker Misc See Rx Instructions .MEDSUPPLY Qty: 1 0RF Rx Instructions: Folding Front wheeled walker acetaminophen 325 mg tablet 650 mg PO Q6H PRN (Reason: Pain, Mild (Pain Scale 1-3)) 30 Days Qty: 20 2RF oxycodone 5 mg tablet 5 mg PO BID PRN (Reason: Pain, Moderate(Pain Scale 4-6)) 7 Days Qty: 14 0RF Rx Instructions: Partial Fill upon patient request. metoprolol tartrate 25 mg tablet 25 mg PO BID Patient Comments: No longer taking, was making him dizzy. celecoxib 200 mg Capsule 200 mg PO BID 30 Days Qty: 60 2RF aspirin 325 mg Tablet 325 mg PO BID 42 Days Qty: 84 0RF docusate sodium 100 mg Capsule 100 mg PO BID 14 Days Qty: 28 0RF cephalexin 500 mg capsule 500 mg PO QID 7 Days Qty: 28 0RF gabapentin 300 mg capsule 300 mg PO BEDTIME Qty: 30 0RF Interventions: ED Discharge Assessment Last Done: 05/14/24 22:04 Print Language: Turkish
[2024-05-14] MEDS: Bacitracin Oint 0.9 GM PACKET 1 APPL TOPICAL (21:56)
[2024-05-14] MEDS: Doxycycline Monohydrate 100 MG CAPSULE PO (22:02)
--- NOTE | 2024-05-14 22:03 | PC.NURSE ---
sutures applied to right hand by provider. pt tolerated well. pt medicated per provider order.
[2024-05-14 22:04] VITALS: BP 125/77; PULSE 77; RESP 16; TEMP 37.1; O2SAT 94
== END 2024-05-14 22:04 | disposition home or self-care (01) ==
PROVIDERS: Emergency Provider Emergency Medicine; PCP Internal Medicine
DX: S61.441A Puncture wound with foreign body of right hand, initial encounter (principal); W45.8XXA Other foreign body or object entering through skin, initial encounter; Y93.9 Activity, unspecified; Y92.9 Unspecified place or not applicable; Y99.9 Unspecified external cause status
CPT/HCPCS: 10120; 73130; 99282; 99284

== ENCOUNTER 2024-05-16 08:45 | Emergency (ER) | payer OTHER, SELFPAY ==
--- NOTE | ~2024-05-16 | XR_ITS ---
EXAMINATION: XR ELBOW, LEFT CLINICAL INFORMATION: Fall pain swelling. COMPARISON: None available. TECHNIQUE: AP, lateral, and oblique views of the left elbow. FINDINGS: There are 3 ossific fragments adjacent to the lateral upper condyle. The largest measures 9 mm with the smaller measuring 4 and 1.5 mm respectively. There is a small ossific fragment overlying the medial medial upper condyle on the lateral projection and anterior to the distal humerus on the lateral projection. There is no effusion Small calcific density in the subcutaneous soft tissues in the proximal forearm seen on the lateral view. XR/XR elbow LT min 3V IMPRESSION: Several ossific fragments adjacent to the lateral condyle of uncertain significance of. This could reflect age indeterminant fracture fragments displaced in the upper condyle. Alternatively this could reflect heterotopic ossification related to old soft tissue injury. Correlation with clinical presentation should help differentiate these possibilities. Small ossific fragment noted anteriorly and medially of uncertain etiology and significance. This does not clearly reflect a fracture fragment. This may reflect a ossicle. Calcification in the soft tissues of the proximal forearm likely related to old trauma.
[2024-05-16 08:53] VITALS: BP 139/82; PULSE 62; RESP 20; TEMP 36.8; O2SAT 97; BMI 32.5
--- NOTE | 2024-05-16 09:18 | ED_ITS ---
HPI - General Adult General Chief complaint: Extremity Problem Stated complaint: Fall/ L leg L arm inj Time Seen by Provider: 05/16/24 09:12 Source: patient, family and swing tender Mode of arrival: ambulatory Limitations: language barrier History of Present Illness ED Provider: Ray MONTES narrative: Patient is a 58-year-old Sammarinese-speaking right-hand dominant male presenting to the emergency department with complaint of left elbow pain and swelling after a trip and fall last night. He also complains of an abrasion/laceration to his left lower leg. States that when he tripped he fell onto a screw sticking out of a metal fan. Reports that he previously injured his left elbow 6 months ago, had x-rays taken at that time and those were without evidence of fracture or dislocation. Also reports history of previous surgery to left shoulder. Reports tetanus is up-to-date within the last 1-2 years. states that she cleaned the laceration last night but 1 area continues to bleed. Patient reports decreased range of motion to left elbow due to pain. Denies head strike or loss of consciousness. Denies neck or back pain. Reports that fall was mechanical and denies dizziness or lightheadedness prior to fall. He is not anticoagulated. States fall occurred around 11:00 p.m. last night. MD complaint: Left elbow pain, left leg laceration Onset (ago): hour(s) Location: left, upper extremity and lower extremity Severity: severe Quality: aching Treatments prior to arrival: none Related Data Home Medications ?Medication ?Instructions ?Recorded ?Confirmed metoprolol tartrate 25 mg tablet 25 mg PO BID 05/27/23 08/18/23 Previous Rx's ?Medication ?Instructions ?Recorded walker #1 ea 05/21/23 aspirin 325 mg tablet 325 mg PO BID 42 days #84 tabs 06/04/23 celecoxib 200 mg capsule 200 mg PO BID 30 days #60 caps 06/04/23 docusate sodium 100 mg capsule 100 mg PO BID 14 days #28 caps 06/04/23 acetaminophen 325 mg tablet 650 mg (2 x 325 mg) PO Q6H PRN 06/19/23 Pain, Mild (Pain Scale 1-3) 30 days #20 tabs oxycodone 5 mg tablet 5 mg PO BID PRN Pain, 08/13/23 Moderate(Pain Scale 4-6) 7 days #14 tabs gabapentin 300 mg capsule 300 mg PO BEDTIME #30 caps 08/19/23 cephalexin 500 mg capsule 500 mg PO QID 7 days #28 caps 01/01/24 bacitracin zinc 500 unit/gram 1 appl topical TID #14 grams 05/14/24 topical ointment doxycycline monohydrate 100 mg 100 mg PO BID 10 days #20 caps 05/14/24 capsule Allergies Allergy/AdvReac Type Severity Reaction Status Date / Time No Known Allergies Allergy Verified 05/16/24 08:56 Review of Systems 2 Review of Systems: As per HPI. Yes all other systems are reviewed and are negative Constitutional: Constitutional: Reports as per HPI [facility] Past Medical History Medical History Osteoarthritis of right knee HTN (hypertension) Surgical History Hx of colonoscopy H/O knee surgery H/O shoulder surgery Family History Family History Mother HTN (hypertension) Sister Esophagus cancer Colon cancer Social History Social History Household Members: Spouse and Children Housing: Apartment Are you a primary career technology teacher to a significant other at home: No Do you presently have visiting nurse or other home services: No Alcohol intake: current Alcohol intake frequency: 0-2 drinks per day Alcohol type: beer Patient Tobacco Use Status: Never used Tobacco Smoked in Last 30 Days: No Use of substances other than those prescribed or required for medical reasons: Yes Substance Use Type: Marijuana Substance Use Frequency: Daily Advance Directives: No Advance Directives Information Provided: Yes service: No Current occupational status: unemployed Current occupation: rt handed Physical Exam ED Vital Signs: Vital Signs - 24 hr 05/16/24 08:53 05/16/24 09:19 Temperature 98.3 F 98.2 F Pulse Rate 62 56 Respiratory Rate 20 14 Blood Pressure 139/82 129/63 Pulse Oximetry 97 97 Oxygen Delivery Method Room Air Room Air BMI result Body Mass Index 32.5 Vital signs have been reviewed and appear to be correct. Blood pressure normal. Heart rate normal. Respiratory rate normal. Temperature normal. Oxygen saturation normal. Const General: cooperative, healthy appearing and no acute distress Orientation/consciousness: oriented to person, oriented to place, oriented to time and patient oriented x3 Limitations: no limitations HENMT Head: Yes normocephalic and Yes atraumatic Ears: external ears normal General nose exam: Normal external nose present Face and sinus: Yes face symmetric Mouth: oropharynx normal and moist mucous membranes Throat: Yes uvula midline Eyes Pupils: Equal, round and reactive pupils present Neck Neck: Yes normal visual inspection and Yes supple Resp Effort & Inspection: normal respiratory effort and able to speak in complete sentences Auscultation: clear to auscultation bilaterally Cardio Rate: regular rate Rhythm: regular rhythm Heart sounds: S1 normal heart sound present and S2 normal heart sound present GI Palpation (GI): Soft to palpation and nontender Auscultation: normoactive bowel sounds General: Yes no CVA tenderness Back/Spine/Pelvis Back: no CVA tenderness Skin General skin exam: elasticity normal and turgor normal Neuro General: oriented to person, oriented to place, oriented to time, patient oriented x3, moves all extremities, no focal motor deficits and CN's II-XI intact bilaterally Cranial nerves: Yes Equal, round and reactive pupils present Cognition (Neuro): normal cognition Extrem Other: General: Yes capillary refill normal, Yes no pedal edema and Yes no calf tenderness Left upper extremity: shoulder/upper arm Details: inspection abnormal and normal ROM; no tenderness, no swelling and no ecchymosis, elbow/forearm Details: abnormal ROM (limited in all directions due to pain) and distal pulses intact; no lacerations and no ecchymosis, wrist (no tenderness, full ROM) and hand Details: normal to inspection, normal capillary refill, neuromotor exam normal, neurosensory exam normal and normal ROM of fingers Left lower extremity: lower leg Details: laceration (2cm laceration continuing as abrasion) mid lower leg lateral Details: linear and involving subcutaneous tissue; not actively bleeding Psych Mental Status: mental status grossly normal Affect: normal affect Thought process: Normal thought process present Medications Administered Discontinued Medications Generic Name Dose Route Start Last Admin Trade Name Freq PRN Reason Stop Dose Admin Diphtheria/Tetanus/Acell Pertussis 0.5 ml 05/16/24 09:19 05/16/24 10:17 Diphth,Pertus(Acell),Tet Adult 0.5 Ml Syringe IM 05/16/24 09:20 Not Given .ONCE ONE Lidocaine HCl 5 ml 05/16/24 09:42 05/16/24 10:17 Lidocaine Hcl 1 % Mpf 5 Ml Vial INFILTRATI 05/16/24 09:43 5 ml ONCE ONE Administration Procedures Laceration Laceration 1: Site: lower extremity Side (If applicable): left Size (cm): 2 Description: linear Depth: simple, single layer Local Anesthetic: lidocaine 1% Amount of anesthesia used (mL): 5 Pre-repair: wound explored, irrigated extensively and deep structures intact Skin layer closed with: other (prolene) Size (cm): 4-0 Number of sutures: 6 Technique: simple, interrupted Medical Decision Making Medical Decision Making [facility] Narrative: Patient is a 58-year-old Sammarinese-speaking right-hand dominant male presenting to the emergency department with complaint of left elbow pain and swelling after a trip and fall last night. On exam patient is awake, A+Ox3, VS WNL, afebrile, normal neurological exam without focal deficits, physical exam findings as above. Given reported symptoms and physical exam findings, initial differential includes left lower leg laceration, abrasion, left elbow fracture, dislocation, contusion. X-ray notable for several ossific fragments adjacent to lateral condyle. My interpretation is in agreement with the radiologist's interpretation. Patient reports that he fell in the bathroom around 3 months ago and landed directly on his elbow at that time. Feel fractures are likely from that injury, however, will place patient in an JOHNNIE wrap and sling until follow up with ortho. Laceration repaired as per procedure note. Tdap up to date. Return precautions discussed. Patient verbalized understanding of and agreement with plan. Differential Diagnosis Differential Diagnoses: The differential diagnosis associated with the presentation includes As per [facility] Independent Interpretation I performed an independent interpretation of an: Plain X-Ray Interpretation: X-ray notable for several ossific fragments adjacent to lateral condyle. Radiology Impression Discussion of test interpretation with radiology: I have reviewed the radiologist's reading. Radiologist Impression: XR/XR elbow LT min 3V IMPRESSION: Several ossific fragments adjacent to the lateral condyle of uncertain significance of. This could reflect age indeterminant fracture fragments displaced in the upper condyle. Alternatively this could reflect heterotopic ossification related to old soft tissue injury. Correlation with clinical presentation should help differentiate these possibilities. Small ossific fragment noted anteriorly and medially of uncertain etiology and significance. This does not clearly reflect a fracture fragment. This may reflect a ossicle. Calcification in the soft tissues of the proximal forearm likely related to old trauma. External Record Review External record reviewed: Inpatient record, Office record and Outpatient record Discharge Plan Discharge Clinical Impression: Laceration of left lower leg, Contusion of left elbow Patient Disposition: Home, Self-Care Instructions: Care For Your Stitches (DC), Laceration (DC), Stitches Removal (ED), How to Use an Elastic Bandage (ED), How to Use a Sling (ED) Additional Instructions: You were evaluated in the emergency department today for injuries sustained after a fall. You have a laceration to your left lower leg which was repaired in the emergency department with 6 sutures. Please keep the dressing in place and dry for the next 24 hours, then change the dressing and assess the wound daily for signs of infection. Do not submerge your leg in water, especially any outdoor water (no swimming). You will need to have the sutures removed in 7-10 days. Your x-ray showed several small bone fragments which could be from your fall last night or from your fall 3 months ago. An JOHNNIE wrap and sling were applied in the ED today. Please keep these in place until you follow up with orthopedics. CALL THEIR OFFICE TO SCHEDULE AN APPOINTMENT, THEY WILL NOT CALL YOU. We recommend that you take 650 mg of Tylenol or 600 mg ibuprofen every 6 hours as needed for pain. If necessary, you can alternate these medications every 3 hours. For example, at 9:00 a.m. take Tylenol, then at noon take ibuprofen, then at 3:00 p.m. take Tylenol, etc.. Return to the emergency department if you develop increasing pain, swelling, redness, warmth, numbness or tingling to your elbow, fever, new redness, swelling, thick yellow drainage from your left lower leg or any other concerning symptoms. Prescriptions: No Action (DME) walker Misc See Rx Instructions .MEDSUPPLY Qty: 1 0RF Rx Instructions: Folding Front wheeled walker acetaminophen 325 mg tablet 650 mg PO Q6H PRN (Reason: Pain, Mild (Pain Scale 1-3)) 30 Days Qty: 20 2RF oxycodone 5 mg tablet 5 mg PO BID PRN (Reason: Pain, Moderate(Pain Scale 4-6)) 7 Days Qty: 14 0RF Rx Instructions: Partial Fill upon patient request. doxycycline monohydrate 100 mg capsule 100 mg PO BID 10 Days Qty: 20 0RF bacitracin zinc 500 unit/gram ointment 1 appl topical TID Qty: 14 0RF metoprolol tartrate 25 mg tablet 25 mg PO BID Patient Comments: No longer taking, was making him dizzy. celecoxib 200 mg Capsule 200 mg PO BID 30 Days Qty: 60 2RF aspirin 325 mg Tablet 325 mg PO BID 42 Days Qty: 84 0RF docusate sodium 100 mg Capsule 100 mg PO BID 14 Days Qty: 28 0RF cephalexin 500 mg capsule 500 mg PO QID 7 Days Qty: 28 0RF gabapentin 300 mg capsule 300 mg PO BEDTIME Qty: 30 0RF Referrals: [facility] [Provider Group] Print Language: Sammarinese
[2024-05-16 09:19] VITALS: BP 129/63; PULSE 56; RESP 14; TEMP 36.8; O2SAT 97
--- NOTE | 2024-05-16 09:27 | PC.NURSE ---
Pt presents to ED following a fall at work onto a fan yesterday. C/o 7/10 pain to L elbow and a laceration to L lateral calf area. A&Ox3, VSS, afebrile. Chart indicated creative art director needed, Pt declines use for this RN interview. Pt reports vaccines are up to date. at beside.
[2024-05-16] MEDS: Lidocaine HCl 1 % MPF 5 ML VIAL INFILTRATI (10:17)
--- NOTE | 2024-05-16 11:09 | PC.NURSE ---
Pt seen by provider for #6 sutures to L lateral lower extremity. Pt tolerated treatment well. Awaiting Xray results.
[2024-05-16 11:39] VITALS: BP 129/63; PULSE 56; RESP 14; TEMP 36.8; O2SAT 97
== END 2024-05-16 11:41 | disposition home or self-care (01) ==
PROVIDERS: Emergency Provider Emergency Medicine; PCP Internal Medicine
DX: S81.812A Laceration without foreign body, left lower leg, initial encounter (principal); S50.02XA Contusion of left elbow, initial encounter; M79.602 Pain in left arm; M79.605 Pain in left leg; X58.XXXA Exposure to other specified factors, initial encounter; Y93.9 Activity, unspecified; Y92.9 Unspecified place or not applicable; Y99.8 Other external cause status; Z79.899 Other long term (current) drug therapy
CPT/HCPCS: 12031; 73080; 96372; 99284

== ENCOUNTER 2024-06-07 13:49 | Outpatient (AMB) | payer OTHER, SELFPAY ==
--- NOTE | 2024-06-07 14:16 | A.OFFVIS_ITS ---
Vital Signs 06/07/24 14:28 Height 6 ft Weight 240 lb BMI 32.5 Intake Visit Reasons: New Prob- Contusion of left elbow, DOI 05/15/24 Intake Note: [place] 58 year old right hand dominant male who presents today for an evaluation of left elbow pain, DOI 05/15/24. Patient reports a fall in the shower injuring bilateral elbows with his left elbow being the worse. He presented to [facility] where xrays were taken and referred to orthopedics. States numbness and tingling in his whole arm. Hx of left shoulder surgery. Planner Scheduler Name: Artis Villalobos ID#[id number] Allergies No Known Allergies Allergy (Verified 06/07/24 14:29) HPI HPI New Prob- Contusion of left elbow, DOI 05/15/24: Details: 58-year-old right hand dominant male who presents to the office today for an evaluation of left elbow injury after a fall in the shower and landing on his bilateral elbows, 05/15/24. He was seen at ER where x-rays were performed and she was referred to our office. He states he has numbness and tingling in his whole arm as well as intense discomfort and pain that is worse on his left elbow.. He has a history of left shoulder surgery. [facility]LY [facility] Medical History Osteoarthritis of right knee HTN (hypertension) Surgical History Hx of colonoscopy H/O knee surgery H/O shoulder surgery Family History Mother HTN (hypertension) Sister Esophagus cancer Colon cancer Social History Household Members: Spouse and Children Housing: Apartment Are you a primary body care manager to a significant other at home: No Do you presently have visiting nurse or other home services: No Alcohol intake: current Alcohol intake frequency: 0-2 drinks per day Alcohol type: beer Patient Tobacco Use Status: Never used Tobacco Substance Use Type: Marijuana service: No Current occupational status: unemployed Current occupation: rt handed Review of Systems Const All systems reviewed & are unremarkable except as noted in HPI and below Physical Exam Vital Signs: BMI result Body Mass Index 32.5 Extrem Other: Left elbow: Skin intact. No erythema or swelling. He has pain in the elbow with extension, and mild discomfort with supination/pronation. Tenderness over the lateral epicondyle and pain with resisted wrist extension. NVI. Assessment & Plan Assessment & Plan (1) Contusion of left elbow: Code(s): S50.02XA - Contusion of left elbow, initial encounter Category: Medical Qualifiers: Encounter type: initial encounter Qualified Code(s): S50.02XA - Contusion of left elbow, initial encounter (2) Left lateral epicondylitis: Code(s): M77.12 - Lateral epicondylitis, left elbow Category: Medical Plan I cannot conclude any fracture on x-rays as there are multiple loose bodies/ossifications of indeterminate age with significant amount of discomfort which extends over the bony prominence. I will order an CT scan of his left elbow to further evaluate the bony structures. On absence of fracture, I rule out it as epicondylitis and sent him to occupational therapy. He will work on light duty and he was given a work note to continue light duty. He will avoid any type of lifting, pushing, pulling, or carrying more than 5 pounds until I see him back with the results. Orders: Orders CT elbow LT wo IV con Today S50.02XA - Contusion of left elbow, initial encounter Patient Instructions: Scribed for Anderson Grande PA-C, by Prashanth Guy medical parasitologist, on 06/07/2024 at 2:30 PM EST.? I, Anderson Grande PA-C, have personally reviewed and agree with the information entered by the scribe. Coding Level of Care Code Est Pt Level 3 (05214) Diagnoses Contusion of left elbow, initial encounter S50.02XA Encounter type: initial encounter Left lateral epicondylitis M77.12
[2024-06-07 14:28] VITALS: BMI 32.5
== END 2024-06-07 15:09 | disposition home or self-care (01) ==
PROVIDERS: PCP Internal Medicine; Visit Provider Physician Assistant
DX: S50.02XA Contusion of left elbow, initial encounter (principal); M77.12 Lateral epicondylitis, left elbow
CPT/HCPCS: 99213

== ENCOUNTER → 2024-06-07 13:49 | Outpatient (BNVA) | payer SELFPAY | PROVIDERS: PCP Internal Medicine; Visit Provider Physician Assistant | DX: S50.02XA Contusion of left elbow, initial encounter (principal); M77.12 Lateral epicondylitis, left elbow | CPT/HCPCS: 99212 ==

== ENCOUNTER 2024-07-23 | Outpatient (REF) | payer OTHER, SELFPAY | END 2024-07-23 00:01 | disposition home or self-care (01) | LOC: CF | PROVIDERS: PCP Internal Medicine; Visit Provider Orthopaedic Surgery | DX: M25.569 Pain in unspecified knee (principal); M06.9 Rheumatoid arthritis, unspecified; Z96.651 Presence of right artificial knee joint | CPT/HCPCS: 99212 ==

== ENCOUNTER 2024-07-23 12:01 | Outpatient (AMB) | payer OTHER, SELFPAY ==
--- NOTE | 2024-07-23 12:35 | MHC.OFFVIS ---
Intake Visit Reasons: OV-RT knee pain RT TKA 06/03/23 with NE Intake Note: Jorge is a 58 year old male who presents today for a follow up of his right knee s/p right TKA on 06/03/[address] Emerson Allergies No Known Allergies Allergy (Verified 06/07/24 14:29) HPI HPI OV-RT knee pain RT TKA 06/03/23 with NE: Details: Jorge is about a year status post right knee hemiarthroplasty. He states he is doing okay. He has been having a little bit of pain in his knees and comes in today wondering if everything is okay. Most of his pain is with stairs and standing from a seated position and it localizes to the anterior aspect of his knees. He denies injury. He states overall the pain is mild. [facility]LY [facility] Medical History Osteoarthritis of right knee HTN (hypertension) Surgical History Hx of colonoscopy H/O knee surgery H/O shoulder surgery Family History Mother HTN (hypertension) Sister Esophagus cancer Colon cancer Social History Household Members: Spouse and Children Housing: Apartment Are you a primary health care consultant to a significant other at home: No Do you presently have visiting nurse or other home services: No Alcohol intake: current Alcohol intake frequency: 0-2 drinks per day Alcohol type: beer Patient Tobacco Use Status: Never used Tobacco Substance Use Type: Marijuana service: No Current occupational status: unemployed Current occupation: rt handed Physical Exam Extrem Other: On exam there is no joint line tenderness. He does have some discomfort when I palpate around the right medial prosthesis but for the most part this is pain-free and he has no effusion his incision is clean dry and intact. There is no retropatellar tenderness to palpation. Assessment & Plan Assessment & Plan (1) Status post total knee replacement, right: Comment: 06/03/23 Code(s): Z96.651 - Presence of right artificial knee joint Category: Surgical Plan: Right knee exam is for the most part benign. Well-healed incision. No evidence of complication from arthroplasty. (2) Anterior knee pain: Code(s): M25.569 - Pain in unspecified knee Category: Medical Plan: Patient has mild bilateral knee pain. No intervention warranted at this time. (3) Rheumatoid arthritis: Comment: some tenosynvitis seen in flexor tendons in hands. xrays show OA 11/2020 trial of sulfasalzine not helpful methotrexate and leflunomide avoided due to etoh use 12/2020 Humira Code(s): M06.9 - Rheumatoid arthritis, unspecified Category: Medical Plan Coding Level of Care Code Est Pt Level 3 (41624) Complex EM visit Add On G2211 Diagnoses Status post total knee replacement, right Z96.651 Anterior knee pain M25.569 Rheumatoid arthritis M06.9
== END 2024-07-23 13:25 | disposition home or self-care (01) ==
PROVIDERS: PCP Internal Medicine; Visit Provider Orthopaedic Surgery
DX: Z47.89 Encounter for other orthopedic aftercare (principal); Z96.651 Presence of right artificial knee joint; M25.569 Pain in unspecified knee; M06.9 Rheumatoid arthritis, unspecified
CPT/HCPCS: 99212; G2211

== ENCOUNTER 2025-08-04 08:25 | Emergency (ER) | payer MEDICAID, SELFPAY ==
--- NOTE | ~2025-08-04 | XR_ITS ---
EXAMINATION: XR CHEST CLINICAL INFORMATION: R side back pain with inspiration COMPARISON: 01/15/2023. TECHNIQUE: 2 views of the chest were obtained. FINDINGS: The cardiac, hilar, and mediastinal contours are normal. The lungs are clear bilaterally. There is no pneumothorax or pleural effusion. There is no focal osseous or soft tissue abnormality. Reverse left shoulder arthroplasty noted in place. Mild degenerative changes of the spine. XR/XR chest 2V IMPRESSION: No active pulmonary disease. Electronically signed by: Umberto Lee MD 08/04/2025 09:17 AM EDT
--- NOTE | ~2025-08-04 | CT_ITS ---
EXAMINATION: CT ANGIOGRAM CHEST CLINICAL INFORMATION: Elevated d-dimer, right lower pleuritic pain with inspiration COMPARISON: 09/03/2022 TECHNIQUE: Multiple axial images were obtained through the chest after the administration of 65 mL of Omnipaque 350 intravenous contrast. Extensive vascular post-processing including two-dimensional and three-dimensional reformatted images were created and reviewed on an independent workstation. This CT examination was performed using dose optimization techniques as appropriate, variously including the following: *Automated exposure control *Adjustment of mA and/or kV according to patient size (this includes techniques or standardized protocols for targeted exams where dose is matched to indication/reason for exam; i.e. extremities or head) *Use of iterative reconstruction technique FINDINGS: QUALITY OF STUDY/CONTRAST BOLUS: Adequate PULMONARY ARTERIES: No filling defects are identified in the pulmonary arteries. THORACIC AORTA: No aneurysm or dissection. There is minimal atherosclerotic ossification. LUNGS AND PLEURA: There is minimal dependent atelectasis. Lungs are clear otherwise. There is no pleural effusion or pleural thickening. MEDIASTINUM: Unremarkable CORONARY ARTERY CALCIFICATION: Present CHEST WALL/AXILLA: Nodular soft tissue density is present in the subareolar region. UPPER ABDOMEN: There is hypodensity in the middle left kidney consistent with a benign simple renal cyst. BONES: Osteophytes are noted in the thoracic spine. CT/CT angio chest PE protocol IMPRESSION: No evidence of pulmonary artery embolus or other pulmonary parenchymal disease. Fleischner guidelines were followed. . Electronically signed by: William Mercedes MD 08/04/2025 12:45 PM EDT
[2025-08-04 08:33] VITALS: BP 162/78; PULSE 53; RESP 18; TEMP 36.4; O2SAT 99; BMI 32.5
--- NOTE | 2025-08-04 08:33 | ECG_ITS ---
Test Reason : sob Blood Pressure : */* mmHG Vent. Rate : 52 BPM Atrial Rate : 52 BPM P-R Int : 214 ms QRS Dur : 100 ms QT Int : 406 ms P-R-T Axes : 48 -27 0 degrees QTcB Int : 377 ms Sinus bradycardia with 1st degree A-V block Otherwise normal ECG When compared with ECG of 15-Jan-2023 08:24, No significant changes seen Referred By: Generic ED Physician Electronically Signed By: MAURILIO NAGEL
[2025-08-04 08:57] LABS: MANUAL DIFF FLAG NO
--- NOTE | 2025-08-04 09:01 | ED_ITS ---
HPI - General Adult General Chief complaint: General Medical Stated complaint: R sided lung pain when breathing Time Seen by Provider: 08/04/25 08:59 Source: patient Mode of arrival: ambulatory Limitations: no limitations History of Present Illness ED Provider: BIANCA VALERA PA-C HPI narrative: 59 yo M with PMH significant for rheumatoid arthritis and PA presents to the ED with right posterior lung pain x1 month. Patient states his job is physically demanding. He initially throught it was MSK pain from heavy lifting. He denies any blunt injury/trauma. Denies skin changes to the area. He states Gabapentin at baseline and states this has not been touching the pain. He has not trialed any other medications for the pain. He has also attempted to be less active however the pain has persisted. He describes the pain as an intermittent sharp and stabbing sensation, worse with deep inspiration. Denies chest pain, sob, cough. Reports smoking 1 pack of cigarettes per day. Patient has been off his RA biologic for a while after it caused a dermatological reaction. He has follow up with PCP regarding his RA at the end of the month. He reports his RA is most severe in the hands and knees. Denies urinary sx or groin radiation. No fevers/chills, numbness/tingling. Related Data Home Medications ?Medication ?Instructions ?Recorded ?Confirmed metoprolol tartrate 25 mg tablet 25 mg PO BID 05/27/23 08/18/23 Previous Rx's ?Medication ?Instructions ?Recorded walker #1 ea 05/21/23 aspirin 325 mg tablet 325 mg PO BID 42 days #84 ta bs 06/04/23 celecoxib 200 mg capsule 200 mg PO BID 30 days #60 ca ps 06/04/23 docusate sodium 100 mg capsule 100 mg PO BID 14 days # 28 caps 06/04/23 acetaminophen 325 mg tablet 650 mg (2 x 325 mg) PO Q6H PRN 06/19/23 Pain, Mild (Pain Scale 1-3) 30 days #20 tabs oxycodone 5 mg tablet 5 mg PO BID PRN Pain, Moderate(Pain Scale 4-6) 7 days #14 tabs gabapentin 300 mg capsule 300 mg PO BEDTIME #30 caps 1 cephalexin 500 mg capsule 500 mg PO QID 7 days #28 cap s 01/01/24 bacitracin zinc 500 unit/gram 1 appl topical TID #14 g esther 05/14/24 topical ointment doxycycline monohydrate 100 mg 100 mg PO BID 10 days # 20 caps 05/14/24 capsule lidocaine 5 % topical patch 1 patch topical DAILY #15 ea 08/04/25 (Lidoderm) Allergies Allergy/AdvReac Type Severity Reaction Status Date / Time No Known Allergies Allergy Verified 08/04/25 08:36 Review of Systems 2 Review of Systems: Yes all other systems are reviewed and are negative [facility] Past Medical History Attestation statement: The following information was validated with the patient. Source: old records reviewed and nursing notes reviewed Medical History Osteoarthritis of right knee HTN (hypertension) Surgical History Hx of colonoscopy H/O knee surgery H/O shoulder surgery Family History Family History Mother HTN (hypertension) Sister Esophagus cancer Colon cancer Social History Social History Household Members: Spouse and Children Housing: Apartment Are you a primary summer child caregiver to a significant other at home: No Do you presently have visiting nurse or other home services: No Alcohol intake: current Alcohol intake frequency: 0-2 drinks per day Alcohol type: beer Patient Tobacco Use Status: Never used Tobacco Substance Use Type: Marijuana Advance Directives: No Advance Directives Information Provided: Yes service: No Current occupational status: unemployed Current occupation: rt handed Physical Exam ED Vital Signs: Vital Signs - 24 hr 08/04/25 08:33 08/04/25 11:39 Temperature 97.6 F 98.2 F Pulse Rate 53 55 Respiratory Rate 18 20 Blood Pressure 162/78 H 154/79 H Pulse Oximetry 99 98 Oxygen Delivery Method Room Air Room Air BMI result Body Mass Index 32.5 Hypertensive, not tachycardic, not hypoxic General: Well appearing, in no acute distress. Skin: Warm, dry, intact. No rashes or lesions. Head: Normocephalic, atraumatic. EENT: Hearing is intact b/l. Conjunctiva clear. Sclera is anicteric. PERRLA. EOM intact. Moist mucous membranes.? Cardiac: Symmetric rise and fall of chest. No overlying skin changes. There is reproducible tenderness to palpation of the right posterolateral chest wall without palpable deformity or crepitus. Lungs: Normal respiratory effort without accessory muscle use. CTA bilaterally. Back: No midline spinous or paraspinal tenderness. No step off deformity. Ext: No pitting edema, no calf tenderness bilaterally Neuro: AOx3. Normal speech. Ambulating with steady gait Course Course Course Narrative: 1044 -- CBC without leukocytosis or left shift. No anemia. H&H stable. Chemistry without acute electrolyte abnormality requiring intervention. No MEHUL. Troponin undetectable. EKG showing sinus bradycardia with first-degree AV block, similar to prior EKGs. Patient is on metoprolol which is likely contributing to his bradycardia. > D-dimer elevated to 814. Age adjusted D-dimer threshold 300. Suspicion for PE given pleuritic pain. CTA chest ordered. > medicated with toradol for pain 1331 -- CTA chest without evidence of PE. No evidence of pneumonia. > patient continues to endorse improvement with Toradol. Advised Motrin/ tylenol out patient. he states he no longer takes AC or aspirin. likely msk in etiology. Patient has remained stable throughout ED visit today. Discussed worrisome signs and symptoms and when to return to the ED. All questions answered at this time. Patient is agreeable with disposition and stable for discharge. Medications Administered Discontinued Medications Generic Name Dose Route Start Last Admin Trade Name Freq PRN Reason Stop Dose Admin Iohexol 100 ml 08/04/25 12:11 08/04/25 12:12 Iohexol 350 Mg/Ml 100 Ml Infus..Btl IV 08/04/25 12:12 65 ml ONCE ONE Administration Ketorolac Tromethamine 30 mg 08/04/25 09:39 08/04/25 09:53 Ketorolac Tromethamine 30 Mg/Ml Vial IM 08/04/25 09:40 30 mg ONCE ONE Administration Medical Decision Making Medical Decision Making [facility] Narrative: 59 yo M with PMH significant for rheumatoid arthritis and PA presents to the ED with right posterior lung pain x1 month. Hypertensive, vitals are otherwise WNL. Not hypoxic or tachycardic. He is generally well-appearing, sitting comfortably on the exam bed. Lungs are CTA throughout. No respiratory distress. Symmetric rise and fall of chest. No overlying skin changes. There is reproducible tenderness to palpation of the right posterolateral chest wall without palpable deformity or crepitus. Differential diagnosis includes costochondritis, MSK sprain/strain, PE, pneumonia, bronchitis, anemia, electrolyte abnormality. ACS, arrhythmia less likely. Plan for labs, ekg, cxr, ddimer (PERC 1) Differential Diagnosis Differential Diagnoses: The differential diagnosis associated with the presentation includes as above. Admission/Observation not indicated. Lab Data MDM Lab Attestation statement: I reviewed the patient's lab results. As above 08/04/25 08:54 08/04/25 08:54 Labs: Lab Results 08/04/25 08/04/25 Range/Units 08:54 10:12 WBC 6.2 (4.8-10.8) X10*3/uL RBC 4.67 (4.60-5.80) X10*6/uL Hgb 15.5 (14.0-18.0) g/dl Hct 44.5 (42.0-52.0) % MCV 95.3 (80.0-98.0) fL MCH 33.2 H (27.0-33.0) pg MCHC 34.8 (31.0-36.0) g/dl RDW 13.8 (11.0-16.0) % Plt Count 211 (160-400) X10*3/uL MPV 9.2 L (9.4-12.4) fL Immature Gran % (Auto) 0.2 (0.0-0.4) % Neut % (Auto) 59.0 (45-73) % Lymph % (Auto) 25.8 (20-40) % Rutherford % (Auto) 11.2 H (2-11) % Eos % (Auto) 3.0 (0-4) % Baso % (Auto) 0.8 (0-2) % Lymph # (Auto) 1.6 (1.2-4.9) X10*3/uL Rutherford # (Auto) 0.7 (0.1-1.2) X10*3/uL Eos # (Auto) 0.2 (0.0-0.4) X10*3/uL Baso # (Auto) 0.1 (0.0-0.2) X10*3/uL Abs Immat Gran (auto) 0.01 (0.00-0.03) X10*3/uL Absolute Neuts (auto) 3.7 (2.0-8.3) x10*3/uL Absolute Nucleated RBC 0.000 (0.0-0.012) X10*3/uL Nucleated RBC % (auto) 0.0 (0.0-0.2) /100WBC D-Dimer High Sensitivty 814 NG/ML Sodium 139 (135-145) mmol/L Potassium 4.6 (3.3-5.1) mmol/L Chloride 104 (96-108) mmol/L Carbon Dioxide 28 (22-29) mmol/L Anion Gap 12 (12-20) BUN 14 (9-16) mg/dL Creatinine 0.81 (0.5-1.4) mg/dL Estim Creat Clear Calc 123.6 Estimated GFR > 60 Random Glucose 100 (60-115) mg/dL Calcium 9.1 (8.4-10.2) mg/dL Troponin I High Sens < 2.7 (<3.5-35.0) ng/L Independent Interpretation I performed an independent interpretation of an: EKG, Plain X-Ray and CT Scan Interpretation: EKG showing sinus bradycardia with sinus arrhythmia. No acute ischemic changes or ST elevations. Chest x-ray without infiltrate or consolidation. CT angio chest without PE Radiology Impression Discussion of test interpretation with radiology: I have reviewed the radiologist's reading. Radiologist Impression: Procedure(s): XR chest 2V Accession Number(s): [id number] cc: Keke Encinas MD; Mohan Lopez DO~ Reason for Exam: R side back pain with inspiration EXAMINATION: XR CHEST CLINICAL INFORMATION: R side back pain with inspiration COMPARISON: 01/15/2023. TECHNIQUE: 2 views of the chest were obtained. FINDINGS: The cardiac, hilar, and mediastinal contours are normal. The lungs are clear bilaterally. There is no pneumothorax or pleural effusion. There is no focal osseous or soft tissue abnormality. Reverse left shoulder arthroplasty noted in place. Mild degenerative changes of the spine. XR/XR chest 2V IMPRESSION: No active pulmonary disease. Electronically signed by: Umberto Lee MD 08/04/2025 09:17 AM EDT RP Procedure(s): CT angio chest PE protocol Accession Number(s): [id number] cc: Keke Encinas MD; Bianca Valera~ Report Number: [id number]: Total DLP = 460.00 mGy-cm Reason for Exam: elevated dimer R lower lung pain w/ insp EXAMINATION: CT ANGIOGRAM CHEST CLINICAL INFORMATION: Elevated d-dimer, right lower pleuritic pain with inspiration COMPARISON: 09/03/2022 TECHNIQUE: Multiple axial images were obtained through the chest after the administration of 65 mL of Omnipaque 350 intravenous contrast. Extensive vascular post-processing including two-dimensional and three-dimensional reformatted images were created and reviewed on an independent workstation. This CT examination was performed using dose optimization techniques as appropriate, variously including the following: *Automated exposure control *Adjustment of mA and/or kV according to patient size (this includes techniques or standardized protocols for targeted exams where dose is matched to indication/reason for exam; i.e. extremities or head) *Use of iterative reconstruction technique FINDINGS: QUALITY OF STUDY/CONTRAST BOLUS: Adequate PULMONARY ARTERIES: No filling defects are identified in the pulmonary arteries. THORACIC AORTA: No aneurysm or dissection. There is minimal atherosclerotic ossification. LUNGS AND PLEURA: There is minimal dependent atelectasis. Lungs are clear otherwise. There is no pleural effusion or pleural thickening. MEDIASTINUM: Unremarkable CORONARY ARTERY CALCIFICATION: Present CHEST WALL/AXILLA: Nodular soft tissue density is present in the subareolar region. UPPER ABDOMEN: There is hypodensity in the middle left kidney consistent with a benign simple renal cyst. BONES: Osteophytes are noted in the thoracic spine. CT/CT angio chest PE protocol IMPRESSION: No evidence of pulmonary artery embolus or other pulmonary parenchymal disease. Fleischner guidelines were followed. . Electronically signed by: William Mercedes MD 08/04/2025 12:45 PM EDT External Record Review External record reviewed: Inpatient record Prescription Management I considered prescription management with: Pain Medication Chronic Conditions Patient?s care impacted by: Other (PA, RA) Social Determinants Patient?s care significantly limited by Social Determinants of Health including: Other Social Determinant of Health Critical Care Time Critical Care Time Critical Care Time: No Discharge Plan Discharge Clinical Impression: Chest wall pain Patient Disposition: Home, Self-Care Instructions: Chest Wall Pain (ED) Additional Instructions: You were evaluated in the ED today for lung pain . Your blood work is reassuring. Your cardiac enzyme is normal. The chest x-ray and CT scan of your chest does not demonstrate pneumonia or clot in your lungs. Your pain improved after receiving Toradol today. This is reassuring. Your pain is likely musculoskeletal. I recommend Motrin/ Tylenol as needed. I am also sending lidocaine patches to your pharmacy. You may apply these to the area as needed for pain control. Return with any new or worsening symptoms. In the case of an emergency call 911. Prescriptions: New lidocaine [Lidoderm] 5 % adhesive patch,medicated 1 patch topical DAILY Qty: 15 0RF Rx Instructions: leave on most painful area for up to 12 hrs No Action (DME) walker [facility] See [facility] Instructions .MEDSUPPLY Qty: 1 0RF Rx Instructions: Folding Front wheeled walker acetaminophen 325 mg tablet 650 mg PO Q6H PRN (Reason: Pain, Mild (Pain Scale 1-3)) 30 Days Qty: 20 2RF oxycodone 5 mg tablet 5 mg PO BID PRN (Reason: Pain, Moderate(Pain Scale 4-6)) 7 Days Qty: 14 0RF Rx Instructions: Partial Fill upon patient request. doxycycline monohydrate 100 mg capsule 100 mg PO BID 10 Days Qty: 20 0RF bacitracin zinc 500 unit/gram ointment 1 appl topical TID Qty: 14 0RF metoprolol tartrate 25 mg tablet 25 mg PO BID Patient Comments: No longer taking, was making him dizzy. celecoxib 200 mg Capsule 200 mg PO BID 30 Days Qty: 60 2RF aspirin 325 mg Tablet 325 mg PO BID 42 Days Qty: 84 0RF docusate sodium 100 mg Capsule 100 mg PO BID 14 Days Qty: 28 0RF cephalexin 500 mg capsule 500 mg PO QID 7 Days Qty: 28 0RF gabapentin 300 mg capsule 300 mg PO BEDTIME Qty: 30 0RF Referrals: Keke Encinas MD [Primary Care Provider, Medical] Print Language: Brazilian
[2025-08-04 09:07] LABS: Hematocrit 44.5 % (42.0-52.0); Hemoglobin 15.5 g/dl (14.0-18.0); Imm Gran Abs Auto 0.01 X10*3/uL (0.00-0.03); Imm Gran Pct Auto 0.2 % (0.0-0.4); Lymphocytes Absolute Auto 1.6 X10*3/uL (1.2-4.9); Mean Corpuscular HGB Conc 34.8 g/dl (31.0-36.0); Mean Corpuscular Hemoglobin 33.2 pg (27.0-33.0); Mean Corpuscular Volume 95.3 fL (80.0-98.0); NRBC Abs Auto 0.000 X10*3/uL (0.0-0.012); NRBC Pct Auto 0.0 /100WBC (0.0-0.2); Platelet Count 211 X10*3/uL (160-400); Red Blood Count 4.67 X10*6/uL (4.60-5.80); White Blood Count 6.2 X10*3/uL (4.8-10.8)
[2025-08-04 09:21] LABS: Anion Gap 12 (12-20); Blood Urea Nitrogen 14 mg/dL (9-16); Calcium 9.1 mg/dL (8.4-10.2); Carbon Dioxide 28 mmol/L (22-29); Chloride 104 mmol/L (96-108); Creatinine Clr Calc Pharmacy 123.6; Estimated Glomerular Filt Rate > 60; Potassium 4.6 mmol/L (3.3-5.1); Sodium 139 mmol/L (135-145)
--- OUTSIDE RECORDS SUMMARY | 2025-08-04 09:41 | XMS_ITS | Encounter Summary ---
Author Organization [employer] Address [address] [place] [address] Care Team Providers Care Manufacturing Maintenance Mechanic Name Role Phone Keke Encinas MD Primary Care Provider [phone] Reason for Visit * Reason Onset Date Comments Appointment Request 02/09/2024 Encounter Details Date Type Department Care Team ([facility] Contact Info) Description 02/09/2024 Telephone [facility] [address] [place], [place] [id number] Keke Encinas MD [address] [place] [address] Appointment Request Social History Tobacco Use Types Packs/Day Years Used Date Smoking Tobacco: Never Depression Answer Date Recorded Patient Health Questionnaire-9 Score 12 09/10/2023 Patient Health Questionnaire-9 Score 12 09/10/2023 Last PHQ-9: Questionnaire Data Not on file 1 11/10/2022 Housing Stability Answer Date Recorded What is your housing situation today? I have sharron spann 08/19/[address] you li ve. Do you have problems with any of the following? None of the above 08/19/2023 Food Insecurity Answer Date Recorded Within the past 12 months, y ou worried that your food would run out before you got money to buy more: Never True 08/19/2023 Within the past 12 months,th e food you bought just didn't last and you didn't have enough money to get more: Never True Transportation Answer Date Recorded In the past 12 months, has l ack of transportation kept you from medical appts, meetings, work or from getting things needed for daily living? No 08/19/2023 Utilities Answer Date Recorded In the past 12 months, has t he electric, gas, oil or water company threatened to shut off services in your home? 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 Pt requested to wait to see PCP for next available. Pt scheduled for 02/25/24. Pt was also requesting status on Rheumatology referral placed months ago. Informedthat referral was placed in August 2023 but no indication of status after referral was sent to [facility] Rheumatology office. Pt states never getting a call from them. Informed will send message to referrals to check on referral status. Pt agrees with plan. * Telephone Encounter - Lenin Castro - 02/09/2024 11:58 AM EDT Tc from pt requesting to r/s same day appt 02/01. Please contact pt at [phone]. documented in this encounter Plan of Treatment Upcoming Encounters Date Type Department Care Team ([facility] st Contact Info) Description 08/30/2025 9:30 AM EDT Office Visit [facility] [address] [place] [address] Keke Encinas MD [address] [place] [address] documented as of this encounter Visit Diagnoses Not on filedocumented in this encounter Additional Health Concerns Assessment Noted Time PHQ-9 Depression Total Score: 12 023 3:42 PM EST documented as of this encounter Care Teams Manufacturing Maintenance Mechanic Relationship Specialty Start Date End Date Keke Encinas MD [address] [place] [id number] PCP - General Internal Medicine 09/24/16 documented as of this encounter
--- OUTSIDE RECORDS SUMMARY | 2025-08-04 09:41 | XMS_ITS | Clinical Summary ---
Author Organization [employer] Address [address] [facility] 7t [place] [address] Care Team Providers Care Parts Identifier Name Role Phone Keke Encinas MD Primary Care Provider [phone] Allergies No known active allergies Medications * This document contains information received from the source organization and may not represent a complete record from that organization. atorvastatin (Lipitor) 20 MG tablet Take 1 tablet by mouth at bed time. 2 07/10/20 25 Discontinu ed(Therapy completed) Acetaminophen Extra Strength 500 MG tablet DIRECTED TAKE 2 TABLETS EVERY 8 HOURS AROUND THE CLOCK FOR PAIN. 2 07/10/20 25 Discontinu ed(Therapy completed) metoprolol succinate XL (Toprol-XL) 25 MG 24 hr tablet Take 25 mg by mouth in the morning. 2 07/10/20 25 Discontinu ed(Therapy completed) metoprolol tartrate (Lopressor) 25 MG tabletIndication s:Primary hypertension Take 1 tablet (25 mg) by mouth 2 times daily. 60 tablet 11 3 07/10/20 25 Discontinu ed(Therapy completed) sertraline (Zoloft) 25 MG tabletIndication s:Depression with anxiety Take 1 tablet (25 mg) by mouth in the morning. 30 tablet 3 07/10/20 25 Discontinu ed(Therapy completed) hydrOXYzine pamoate (Vistaril) 50 MG capsuleIndicatio ns:Depression with anxiety TAKE 1 CAPSULE (50 MG) BY MOUTH EVERY 8 (EIGHT) HOURS IF NEEDED FOR ITCHING OR ANXIETY. 90 capsule 3 07/10/20 25 Discontinu ed(Therapy completed) amLODIPine (Norvasc) 5 MG tabletIndication s:Primary hypertension Take 1 tablet (5 mg) by mouth in the morning. 30 tablet 11 3 07/10/20 25 Discontinu ed(Therapy completed) Hospital, Clinic, or Other Facility Administered Medication Ordered Dose Route Frequency Start Date End Date Status lidocaine-prilocaine (Emla) creamIndications:Osteoarthrit is of right knee, unspecified osteoarthritis type TOP Once 12/20/2022 Activ e Active Problems Problem Noted Date Diagnosed Date ROSEMARY (generalized anxiety disorder) 09/10/2023 Assessment & Plan (09/10/2023 4:10 PM EST): Assessment: Patient presents with panic attacks, anxiety and depressive symptoms. No risk for self-harm, SI, HI. Reason for visit was to assess symptoms and provide support to patient. Symptoms are present in the context of been unable to work due to new health issues, concern abut elderly mother who lives alone in [place]. Provided space for Jorge to vent and psychoeducation around coping mechanisms to manage anxiety and depressive sxs and recommended Ind. Therapy and Medication Management, he agreed to both referrals. At this time Jorge Szymanski meets criteria for Visit Diagnoses: Problem List Items Addressed This Visit Other ROSEMARY (generalized anxiety disorder) Moderate depressive disorder Patient ready to address current needs Yes Strengths include Jorge in preparation action stage of change and his motavation will served as treatment engagement. PLAN: 1. Follow up with [facility]: Not recommended for follow-up 2. Patient goal is improve mental health 3. Behavioral Recommendations a. Ind. Therapy, referral will be submitted. b. Medication Management, referral will be submitted c. Use of coping skills provide as recommended d. [facility] contact information for extra support. Moderate depressive disorder 09/10/2023 Rheumatoid arthritis involvi ng both hands with positive rheumatoid factor ([facility]) 08/13/2023 Obesity (BMI 30-39.9) 01/10/2016 Elevated fasting glucose 01/10/2016 Hyperlipidemia 01/10/2016 Hypertensive disorder 01/10/2016 Obstructive sleep apnea syndrome 01/10/2016 Encounters Date Type Department Care Team Description 08/04/2025 Orders Only GENERIC EXTERNAL DATA DEPARTMENT Provider, Generic External Data 07/26/2025 Telephone [facility] MEDICINE [address] [place] [phone] Keke Encinas MD No Show 07/25/2025 Telephone [facility] MED & PEDS [address] [place] [address] Keke Encinas MD chart prep 07/19/2025 Patient Outreach [facility] [address] [place] [address] Keke Encinas MD Care Coordination (CHW outreach for SDOH housing search-referral completed ) 07/19/2025 Patient Outreach [facility] [address] [place] [address] Keke Encinas MD Pre-visit Planning (SDOH screening positive and Tobacco screening negative) 06/13/2025 2:00 PM EDT Office Visit [facility] OPTOMETRY [address] [place] [address] Davis, Hyacinth, OD Combined forms of age-related cataract of both eyes (Primary Dx); Epiretinal membrane (ERM) of right eye; Presbyopia 06/13/2025 Travel 05/10/2025 Population Health Risk Score [facility] () Department [address] [place] [phone] Provider, Population Health Generic from Last 3 Months Immunizations Immunization Administration Dates Next Due Influenza injectable quadriv alent preservative free 10/01/2021,08/31/2020,08/18/2017 Influenza, Split (incl. perla fied surface antigen) 08/18/2013 Family History Medical History Relation Name Comments Cataracts Mother Relation Name Status Comments Mother Social History Tobacco Use Types Packs/Day Years Used Date Smoking Tobacco: Never Depression Answer Date Recorded Patient Health Questionnaire-9 Score 12 09/10/2023 Patient Health Questionnaire-9 Score 12 09/10/2023 Last PHQ-9: Questionnaire Data Not on file 1 11/10/2022 Housing Stability Answer Date Recorded What is your housing situation today? I do not have housing (Staying with others, in a hotel, in a group home, living outside on the street, on a beach, in a car, or in a park 07/19/[address] you li ve. Do you have problems with any of the following? None of the above 07/19/2025 Food Insecurity Answer Date Recorded Within the past 12 months, y ou worried that your food would run out before you got money to buy more: Never True 07/19/2025 Within the past 12 months,th e food you bought just didn't last and you didn't have enough money to get more: Never True Transportation Answer Date Recorded In the past 12 months, has l ack of transportation kept you from medical appts, meetings, work or from getting things needed for daily living? No 07/19/2025 Utilities Answer Date Recorded In the past 12 months, has t he electric, gas, oil or water company threatened to shut off services in your home? 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[employer] Not on file Not on file Not on file Last Filed Vital Signs Vital Sign Reading Time Taken Comments Blood Pressure 154/87 09/16/2023 1:48 PM EST Pulse 63 09/16/2023 1:48 PM EST Temperature 35.5 C (95.9 F) 09/16/2023 1:48 PM EST Respiratory Rate 18 09/16/2023 1:48 PM EST Oxygen Saturation 97% 09/16/2023 1:48 PM EST Inhaled Oxygen Concentration - - Weight 118 kg (260 lb) 09/16/2023 1:48 PM EST Height 182.9 cm (6') 09/16/2023 1:48 PM EST Body Mass Index 35.26 09/16/2023 1:48 PM EST Plan of Treatment Upcoming Encounters Date Type Department Care Team (Late st Contact Info) Description 08/30/2025 9:30 AM EDT Office Visit [facility] MED & PEDS [address] [place] [address] Keke Encinas MD [address] [place] [phone] Health Maintenance Due Date Last Done Comments CT Colonography 1964 FIT DNA/Cologuard 1965 FIT 1965 FOBT 1965 HIV Screening 1965 Sigmoidoscopy 1965 Disability Screening 1964 Alcohol/Substance Use Screening 1976 Pneumococcal Vaccine: 50+ Years (1 of 1 - PCV) 2014 Zoster Vaccines (1 of 2) 2014 Colonoscopy 12/23/2020 12/23/2017 Colorectal Cancer Screening 12/23/2020 Depression Monitoring 03/10/2024 09/10/2023, 023 COVID-19 Vaccine (3 - season) 2025 10/22/2021, 10/01/2021 Influenza Vaccine (#1) 2025 , 08/31/2020, 08/18/2017, Additional history exists SDOH Screening 07/19/2026 07/19/2025 Tobacco Screening 07/25/2026 07/25/2025 Lipid Panel 05/13/2028 05/13/2023, 08/29/2020 DTaP/Tdap/Td Vaccines (2 - Td or Tdap) 01/06/2034 01/07/2024 RSV Patients and Patients Aged 60 years or older (1 - 1-dose 75+ series) 2039 Hepatitis C Screening Completed 08/28/2021 HIB Vaccines Aged Out No longer eligi ble based on patient's age to complete this topic HPV Vaccines Aged Out No longer eligi ble based on patient's age to complete this topic Hepatitis A Vaccines Aged Out No long er eligible based on patient's age to complete this topic Hepatitis B Vaccines Aged Out No long er eligible based on patient's age to complete this topic IPV Vaccines Aged Out No longer eligi ble based on patient's age to complete this topic Meningococcal B Vaccine Aged Out No l onger eligible based on patient's age to complete this topic Meningococcal Vaccine Aged Out No tracy marquis eligible based on patient's age to complete this topic RSV under 20 months Aged Out No longe r eligible based on patient's age to complete this topic Rotavirus Vaccines Aged Out No longer eligible based on patient's age to complete this topic Procedures Procedure Name Priority Date/Time Associated Diagnosis Comments BASIC METABOLIC PANEL Routine 08/04/2025 8:54 AM EDT CBC WITH AUTO DIFFERENTIAL Routine 08/04/2025 8:54 AM EDT XR CHEST 2 VIEWS Routine 08/04/2025 8:50 AM EDT LIPID PANEL, STANDARD Routine 05/13/2023 11:07 AM EDT ZZZ HISTORICAL HEPATITIS A,B,C PROFILE Routine 08/28/2021 7:39 AM EDT HM COLONOSCOPY Routine 12/23/2017 from Last 3 Months or Most Recently Relevant to Health Maintenance Results * (ABNORMAL) CBC auto differential (08/04/2025 8:54 AM EDT) White Blood Count 6.2 4.8 - 10.8 X10*3/uL [facility] Red Blood Count 4.67 4.60 - 5.80 X10*6/uL [facility] Hemoglobin 15.5 14.0 - 18.0 g/dl [facility] Hematocrit 44.5 42.0 - 52.0 % [facility] Mean Corpuscular Volume 95.3 80.0 - 98.0 fL [facility] Mean Corpuscular Hemoglobin 33.2(H) 27.0 - 33.0 pg [facility] Mean Corpuscular HGB Conc 34.8 31.0 - 36.0 g/dl [facility] Red Cell Distribution Width 13.8 11.0 - 16.0 % [facility] Platelet Count 211 160 - 400 X10*3/uL [facility] Mean Platelet Volume 9.2(L) 9.4 - 12.4 fL [facility] Neutrophils Percent Auto 59.0 45 - 73 % [facility] Imm Gran Pct Auto 0.2 0.0 - 0.4 % [facility] Lymphocytes Percent Auto 25.8 20 - 40 % [facility] Monocytes Percent Auto 11.2(H) 2 - 11 % [facility] Eosinophils Percent Auto 3.0 0 - 4 % [facility] Basophils Percent Auto 0.8 0 - 2 % [facility] NRBC Pct Auto 0.0 0.0 - 0.2 /100WBC [facility] Neutrophils Absolute Auto 3.7 2.0 - 8.3 x10*3/uL [facility] Imm Gran Abs Auto 0.01 0.00 - 0.03 X10*3/uL [facility] Lymphocytes Absolute Auto 1.6 1.2 - 4.9 X10*3/uL [facility] Monocytes Absolute Auto 0.7 0.1 - 1.2 X10*3/uL [facility] Eosinophils Absolute Auto 0.2 0.0 - 0.4 X10*3/uL [facility] Basophils Absolute Auto 0.1 0.0 - 0.2 X10*3/uL [facility] NRBC Abs Auto 0.000 0.0 - 0.012 X10*3/uL [facility] 08/04/2025 8:54 AM EDT 08/04/2025 8:56 AM EDT us Generic External Data Provider LAB BLOOD ORDERAB LES Final Result [facility] [address] [place] [phone] * Basic Metabolic Panel (08/04/2025 8:54 AM EDT) Sodium 139 135 - 145 mmol/L [facility] Potassium 4.6 3.3 - 5.1 mmol/L [facility] Chloride 104 96 - 108 mmol/L [facility] Carbon Dioxide 28 22 - 29 mmol/L [facility] Anion Gap 12 12 - 20 [facility] Urea Nitrogen (BUN) 14 9 - 16 mg/dL [facility] Creatinine, Serum 0.81 0.5 - 1.4 mg/dL [facility] Creatinine Clr Calc Pharmacy 123.6 [facility] Comment:eGFR (calculated fro m the MDRD study equation) and eCrCl(calculated from the Cockcroft-Gault equation) are based ondifferent parameters and may not yield comparable results.If eCrCl result is absurd, please check patient'sheight/weight. Estimated Glomerular Filt Rate >60 [facility] Comment:Chronic Kidney Disea se: Estimated GFR < 60 mL/min/1.77o2Qptzbl Kidney Disease: Estimated GFR < 15 mL/min/1.73m2 Glucose 100 60 - 115 mg/dL [facility] Calcium 9.1 8.4 - 10.2 mg/dL [facility] 08/04/2025 8:54 AM EDT 08/04/2025 8:56 AM EDT us Generic External Data Provider LAB BLOOD ORDERAB LES Final Result Performing Organization Address City/State/[facility] Co de Phone Number [facility] [address] [place] [phone] * XR Chest 2 Views (08/04/2025 8:50 AM EDT) Anatomical Region Laterality Modality Chest Radiographic Keena ging 08/04/2025 8:50 AM EDT Narrative 08/04/2025 9:20 AM EDT [address] [address] XRay Report Signed Patient: Jorge Szymanski MR#: [id number] 8 : 1965 Acct:[id number] Age/Sex: 59 / M ADM Date: 08/04/25 Loc: .ED Attending Dr: Ordering Physician: Mohan Lopez DO Date of Service: 08/04/25 Procedure(s): XR chest 2V Accession Number(s): [id number] cc: Keke Encinas MD; Mohan Lopez DO Reason for Exam: R side back pain with inspiration EXAMINATION: XR CHEST CLINICAL INFORMATION: R side back pain with inspiration COMPARISON: 01/15/2023. TECHNIQUE: 2 views of the chest were obtained. FINDINGS: The cardiac, hilar, and mediastinal contours are normal. The lungs are clear bilaterally. There is no pneumothorax or pleural effusion. There is no focal osseous or soft tissue abnormality. Reverse left shoulder arthroplasty noted in place. Mild degenerative changes of the spine. XR/XR chest 2V IMPRESSION: No active pulmonary disease. Electronically signed by: Umberto Lee MD 08/04/2025 09:17 AM EDT RP Dictated By: Umberto Lee MD Signed By: <Electronically signed by Umberto Lee MD in OV> 08/04/25 0917 DD/ 0850 TD/TT: 08/04/25 0852 Jewelry Mold Maker: Procedure Note Donotuseinterpreter, Image - 08/04/2025 [place] [id number] XRay Report Signed Patient: Jorge Szymanski AMR#: [id number] 8 : 1965Acct:[id number] Age/Sex: 59 / MADM Date: 08/04/25 Loc: .ED Attending Dr: Ordering Physician: Mohan Lopez DO Date of Service: 08/04/25 Procedure(s): XR chest 2V Accession Number(s): [id number] cc: Keke Encinas MD; Mohan Lopez DO Reason for Exam: R side back pain with inspiration EXAMINATION: XR CHEST CLINICAL INFORMATION: R side back pain with inspiration COMPARISON: 01/15/2023. TECHNIQUE: 2 views of the chest were obtained. FINDINGS: The cardiac, hilar, and mediastinal contours are normal. The lungs are clear bilaterally. There is no pneumothorax or pleural effusion. There is no focal osseous or soft tissue abnormality. Reverse left shoulder arthroplasty noted in place. Mild degenerative changes of the spine. XR/XR chest 2V IMPRESSION: No active pulmonary disease. Electronically signed by: Umberto Lee MD 08/04/2025 09:17 AM EDT RP Dictated By: Umberto Lee MD Signed By: <Electronically signed by Umberto Lee MD in OV> 08/04/25 0917 DD/ TD/TT: 08/04/25 0852 Jewelry Mold Maker: [facility] External Provider IMG XR PROCEDURES Edited Result - Final * Lipid Panel, Standard (05/13/2023 11:07 AM EDT) Triglycerides 167 mg/dL [facility] Comment:Desirable Triglyceri de: less than 150 mg/dLBorderline High Triglyceride 150-199 mg/dLHigh Triglyceride: 200-499 mg/dLVery High Triglyceride: greater than or equal to 5OO mg/dL Cholesterol 218 mg/dL [facility] Comment:Desirable Cholestero l: less than 200 mg/dLBorderline High Cholesterol: 200-239 mg/dLHigh Cholesterol: greater than 239 mg/dL LDL Cholesterol Calculated 129 mg/dl [facility] Comment:Desirable LDL: less than 100 mg/dLNear Optimal/Above Optimal LDL: 110- 129 mg/dLBorderline High LDL: 130-159 mg/dLHigh LDL: 160-189 mg/dLVery High LDL: greater than or equal to 190 mg/dL HDL Cholesterol 56 mg/dL [facility] Comment:Desirable HDL: great er than 40 mg/dL Note: This HDL assay may give artificially low results in patients with liver disease. 05/13/2023 11:0 7 AM EDT 05/13/2023 2:13 PM EDT [facility] External Provider LAB BLO OD ORDERABLES Final Result [facility] [address] [place] [phone] * Hepatitis A,B,C Profile (08/28/2021 7:39 AM EDT) Hepatitis B Core Antibody Nonreactive Nonreactive [facility] Hepatitis B Surface Antibody NONREACTIVE Nonreactive [facility] Comment:Nonreactive: < 8.00 mIU/mL Hepatitis B Surface Antigen Negative Negative [facility] Hepatitis C Antibody Nonreactive Nonreactive [facility] Comment: Antibodies to HCV not detected; does not exclude early acute HCV infection. 08/28/2021 7:39 AM EDT Historical Provider HISTORICAL/NON ORDERABLE LABS Final Result [facility] [address] [place] [address], * Colonoscopy (12/23/2017) Colonoscopy Normal Normal Narrative Roselyn Ba - 12/23/2017 Recommended 3 year follow up Historical Provider HEALTH MAINTENANCE Final Result from Last 3 Months or Most Recently Relevant to Health Maintenance Insurance [employer] - teamwork across [employer] Care Teams Parts Identifier Relationship Specialty Start Date End Date Keke Encinas MD [address] [place] [phone] PCP - General Internal Medicine 09/24/16
--- OUTSIDE RECORDS SUMMARY | 2025-08-04 09:41 | XMS_ITS | Encounter Summary ---
Author Organization [employer] Address [address] [facility] 7 [place] [address] Care Team Providers Care Speech Language Pathology Assistant Name Role Phone Keke Encinas MD Primary Care Provider [phone] Reason for Visit * Reason Onset Date Comments Referral 02/02/2024 Encounter Details Date Type Department Care Team ([facility] Contact Info) Description 02/02/2024 Telephone [facility] MEDICINE [address] [place], [place] [phone] Keke Encinas MD [address] [place] [address] Referral Social History Tobacco Use Types Packs/Day Years [...] 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 Can discuss with provider. * Telephone Encounter - Jose Caputo - 02/02/2024 10:32 AM EDT Tc from patient requesting a referral for [facility] states would like to be seen by the provider who operated on the shoulder and would like a referral for Rheumatology for the arthritis in the hands documented in this encounter Plan of Treatment Upcoming Encounters Date Type Department Care Team (Late st Contact Info) Description 08/30/2025 9:30 AM EDT Office Visit [facility] MED & PEDS [address] [place] [address] Keke Encinas MD [address] [place] [address] documented as of this encounter Visit Diagnoses Not on filedocumented in this encounter Additional Health Concerns Assessment Noted Time PHQ-9 Depression Total Score: 12 023 3:42 PM EST documented as of this encounter Care Teams Speech Language Pathology Assistant Relationship Specialty Start Date End Date Keke Encinas MD [address] [place] [address] PCP - General Internal Medicine 09/24/16 documented as of this encounter
--- OUTSIDE RECORDS SUMMARY | 2025-08-04 09:41 | XMS_ITS | Encounter Summary ---
Author Organization [employer] Address [address] [facility] 7 [place] [address] Care Team Providers Care Spinning Lathe Operator Automatic Name Role Phone Keke Encinas MD Primary Care Provider [phone] Reason for Visit * Reason Onset Date Comments Referral 03/22/2024 Encounter Details Date Type Department Care Team ([facility] Contact Info) Description 03/22/2024 Telephone [facility] MEDICINE [address] [place], [place] [phone] Keke Encinas MD [address] [place] [address] Referral Social History Tobacco Use Types Packs/Day [...] 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 * Telephone Encounter - Lenin Castro - 03/22/2024 11:29 AM EDT TC from pt requesting new referral: Address: [facility] [id number] [address] Facility Name: [facility]. Type of Specialist: Orthopedics documented in this encounter Plan of Treatment Upcoming Encounters Date Type Department Care Team (Late st Contact Info) Description 08/30/2025 9:30 AM EDT Office Visit [facility] MED & PEDS [address] [place] [address] Keke Encinas MD [address] [place] [address] documented as of this encounter Visit Diagnoses Not on filedocumented in this encounter Additional Health Concerns Assessment Noted Time PHQ-9 Depression Total Score: 12 023 3:42 PM EST documented as of this encounter Care Teams Spinning Lathe Operator Automatic Relationship Specialty Start Date End Date Keke Encinas MD [address] [place] [phone] PCP - General Internal Medicine 09/24/16 documented as of this encounter
--- OUTSIDE RECORDS SUMMARY | 2025-08-04 09:41 | XMS_ITS | Encounter Summary ---
Author Organization [employer] Address [address] [place] [phone] Care Team Providers Care Solar Development Engineer Name Role Phone Keke Encinas MD Primary Care Provider [phone] Reason for Visit * Reason Comments Med Refill Encounter Details Date Type Department Care Team ([facility] Contact Info) Description 06/30/2023 Refill [facility] MEDICINE [address] [place], [place] [phone] Keke Encinas MD [address] [place], [place] [phone] Social History Tobacco Use Types Packs/Day Years Used Date Smoking Tobacco: Never Sex and Gender Information Value Date Recorded Sex Assigned at Male 09/02/2022 10:15 AM EDT Legal Sex Male 10:15 AM EDT Gender Identity Choose not to disclose 10:15 AM EDT Sexual Orientation Choose not to disclose 2021 10:15 AM EDT 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 Not on file documented as of this encounter Plan of Treatment Upcoming Encounters Date Type Department Care Team ([facility] Contact Info) Description 08/30/2025 9:30 AM EDT Office Visit [facility] MED & PEDS [address] [place], [place] [phone] Keke Encinas MD [address] [place] [address] documented as of this encounter Visit Diagnoses Not on filedocumented in this encounter Care Teams Solar Development Engineer Relationship Specialty Start Date End Date Keke Encinas MD [address] [place] [phone] PCP - General Internal Medicine 09/24/16 documented as of this encounter
--- OUTSIDE RECORDS SUMMARY | 2025-08-04 09:41 | XMS_ITS | Encounter Summary ---
Author Organization [employer] Address [address] [facility] 7t [place] [address] Care Team Providers Care Conche Operator Name Role Phone Keke Encinas MD Primary Care Provider [phone] Encounter Details Date Type Department Care Team ([facility] Contact Info) Description 08/04/2025 Orders Only GENERIC EXTERNAL DATA DEPARTMENT Provider, Generic External Data Social History Tobacco Use Types Packs/Day Years Used Date Smoking Tobacco: Never Depression Answer Date Recorded Patient Health Questionnaire-9 Score 12 09/10/2023 Patient Health Questionnaire-9 Score 12 09/10/2023 Last PHQ-9: Questionnaire Data Not on file 1 11/10/2022 Housing Stability Answer Date Recorded What is your housing situation today? 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 file Not on file documented as of this encounter Plan of Treatment Upcoming Encounters Date Type Department Care Team ([facility] Contact Info) Description 08/30/2025 9:30 AM EDT Office Visit [facility] CHC MED & PEDS [address] [place], [place] [phone] Keke Encinas MD [address] [place], [place] [phone] documented as of this encounter Procedures Procedure Name Priority Date/Time Associated Diagnosis Comments CBC WITH AUTO DIFFERENTIAL Routine 08/04/2025 8:54 AM EDT BASIC METABOLIC PANEL Routine 08/04/2025 8:54 AM EDT XR CHEST 2 VIEWS Routine 08/04/2025 8:50 AM EDT documented in this encounter Results * Basic Metabolic Panel (08/04/2025 8:54 AM EDT) Sodium 139 135 - 145 mmol/L [facility] Potassium 4.6 3.3 - 5.1 mmol/L [facility] Chloride 104 96 - 108 mmol/L [facility] Carbon Dioxide 28 22 - 29 mmol/L [facility] Anion Gap 12 12 - 20 [facility] Urea Nitrogen (BUN) 14 9 - 16 mg/dL [facility] Creatinine, Serum 0.81 0.5 - 1.4 mg/dL [facility] Creatinine Clr Calc Pharmacy 123.6 [facility] Comment:eGFR (calculated fro m the MDRD study equation) and eCrCl(calculated from the Cockcroft-Gault equation) are based ondifferent parameters and may not yield comparable results.If eCrCl result is absurd, please check patient'sheight/weight. Estimated Glomerular Filt Rate >60 [facility] Comment:Chronic Kidney Disea se: Estimated GFR < 60 mL/min/1.95h9Opyazd Kidney Disease: Estimated GFR < 15 mL/min/1.73m2 Glucose 100 60 - 115 mg/dL [facility] Calcium 9.1 8.4 - 10.2 mg/dL [facility] 08/04/2025 8:54 AM EDT 08/04/2025 8:56 AM EDT us Generic External Data Provider LAB BLOOD ORDERAB LES Final Result [facility] [address] [place] [address] [phone] * (ABNORMAL) CBC auto differential (08/04/2025 8:54 AM EDT) White Blood Count 6.2 4.8 - 10.8 X10*3/uL [facility] Red Blood Count 4.67 4.60 - 5.80 X10*6/uL [facility] Hemoglobin 15.5 14.0 - 18.0 g/dl [facility] Hematocrit 44.5 42.0 - 52.0 % [facility] Mean Corpuscular Volume 95.3 80.0 - 98.0 fL [facility] Mean Corpuscular Hemoglobin 33.2(H) 27.0 - 33.0 pg [facility] Mean Corpuscular HGB Conc 34.8 31.0 - 36.0 g/dl [facility] Red Cell Distribution Width 13.8 11.0 - 16.0 % [facility] Platelet Count 211 160 - 400 X10*3/uL [facility] Mean Platelet Volume 9.2(L) 9.4 - 12.4 fL [facility] Neutrophils Percent Auto 59.0 45 - 73 % [facility] Imm Gran Pct Auto 0.2 0.0 - 0.4 % [facility] Lymphocytes Percent Auto 25.8 20 - 40 % [facility] Monocytes Percent Auto 11.2(H) 2 - 11 % [facility] Eosinophils Percent Auto 3.0 0 - 4 % [facility] Basophils Percent Auto 0.8 0 - 2 % [facility] NRBC Pct Auto 0.0 0.0 - 0.2 /100WBC [facility] Neutrophils Absolute Auto 3.7 2.0 - 8.3 x10*3/uL [facility] Imm Gran Abs Auto 0.01 0.00 - 0.03 X10*3/uL [facility] Lymphocytes Absolute Auto 1.6 1.2 - 4.9 X10*3/uL [facility] Monocytes Absolute Auto 0.7 0.1 - 1.2 X10*3/uL [facility] Eosinophils Absolute Auto 0.2 0.0 - 0.4 X10*3/uL [facility] Basophils Absolute Auto 0.1 0.0 - 0.2 X10*3/uL [facility] NRBC Abs Auto 0.000 0.0 - 0.012 X10*3/uL [facility] 08/04/2025 8:54 AM EDT 08/04/2025 8:56 AM EDT us Generic External Data Provider LAB BLOOD ORDERAB LES Final Result [facility] [address] [place] [phone] * XR Chest 2 Views (08/04/2025 8:50 AM EDT) Anatomical Region Laterality Modality Chest Radiographic Keena ging 08/04/2025 8:50 AM EDT Narrative 08/04/2025 9:20 AM EDT [address] [address] XRay Report Signed Patient: Jorge Szymanski MR#: [id number] 8 : 1965 Acct:[id number] Age/Sex: 59 / M ADM Date: 08/04/25 Loc: HO.ED Attending Dr: Ordering Physician: Mohan Lopez DO Date of Service: 08/04/25 Procedure(s): XR chest 2V Accession Number(s): [id number] cc: Keke Encinas MD; Mohan Lopez DO [...] Umberto Lee MD 08/04/2025 09:17 AM EDT Dictated By: Umberto Lee MD Signed By: <Electronically signed by Umberto Lee MD in OV> 08/04/25 0917 DD/ 0850 TD/TT: 08/04/25 0852 Agency Trainer: Procedure Note Donotuseinterpreter, Image - 08/04/[address] [address] XRay Report Signed Patient: Jorge Szymanski AMR#: [id number] 8 : 1965Acct:[id number] Age/Sex: 59 / MADM Date: 08/04/25 Loc: .ED Attending Dr: Ordering Physician: Mohan Lopez DO Date of Service: 08/04/25 Procedure(s): XR chest 2V Accession Number(s): [id number] cc: Keke Encinas MD; Mohan Lopez DO [...] signed by Umberto Lee MD in OV> 08/04/25916 DD/ 9 TD/TT: 08/04/2552 Agency Trainer: [facility] External Provider IMG XR PROCEDURES Edited Result - Final documented in this encounter Visit Diagnoses Not on filedocumented in this encounter Additional Health Concerns Assessment Noted Time PHQ-9 Depression Total Score: 12 023 3:42 PM EST documented as of this encounter Care Teams Conche Operator Relationship Specialty Start Date End Date Keke Encinas MD [address] [place] [address] PCP - General Internal Medicine 09/24/16 documented as of this encounter
--- OUTSIDE RECORDS SUMMARY | 2025-08-04 09:41 | XMS_ITS | Encounter Summary ---
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 Not on file documented as of this encounter Plan of Treatment Upcoming Encounters Date Type Department Care Team ([facility] st Contact Info) Description 08/30/2025 9:30 AM EDT Office Visit [facility] CHC MED & PEDS [address] [place] [address] Keke Encinas MD [address] [place] [address] documented as of this encounter Visit Diagnoses Diagnosis Adenoma of sigmoid colon- Primary documented in this encounter Additional Health Concerns Assessment Noted Time PHQ-9 Depression Total Score: 12 023 3:42 PM EST documented as of this encounter Care Teams Housekeeper Manager Relationship Specialty Start Date End Date Keke Encinas MD [address] [place] [address] PCP - General Internal Medicine 09/24/16 documented as of this encounter
--- OUTSIDE RECORDS SUMMARY | 2025-08-04 09:41 | XMS_ITS | Encounter Summary ---
Author Organization [employer] Address [address] [facility] 7 [place] [address] Care Team Providers Care Rehabilitation Medicine Physician Name Role Phone Keke Encinas MD Primary Care Provider [phone] Reason for Visit * Reason Onset Date Comments Med Refill 01/08/2023 Encounter Details Date Type Department Care Team ([facility] Contact Info) Description 01/08/2023 Telephone [facility] CHC MED & PEDS [address] [place], [place] [phone] Keke Encinas MD [address] [place] [address] Med Refill Social History Tobacco Use Types Packs/Day Years Used Date Smoking Tobacco: Never Assessed Sex and Gender Information Value Date Recorded Sex Assigned at Male 09/02/2022 10:15 AM EDT Legal Sex Male 10:15 AM EDT Gender Identity Choose not to disclose 10:15 AM EDT Sexual Orientation Choose not to disclose 2021 10:15 AM EDT COVID-19 Exposure Response Date Recorded In the last 10 days, have yo u been in contact with someone who was confirmed or suspected to have Coronavirus/COVID-19? No / Unsure 12/20/2022 2:51 PM EST documented as of this encounter Miscellaneous Notes * Telephone Encounter - Ese Mcneill - 01/08/2023 3:13 PM EST Tc from pt requesting med refill on lidocaine-prilocaine (Emla) cream. states pt never receivemedication. Please sent to [id number] [place] - [address] [facility] documented in this encounter Plan of Treatment Upcoming Encounters Date Type Department Care Team ([facility] st Contact Info) Description 08/30/2025 9:30 AM EDT Office Visit [facility] MED & PEDS [address] [place] [address] Keke Encinas MD [address] [place] [address] documented as of this encounter Visit Diagnoses Not on filedocumented in this encounter Care Teams Rehabilitation Medicine Physician Relationship Specialty Start Date End Date Keke Encinas MD [address] [place] [address] PCP - General Internal Medicine 09/24/16 documented as of this encounter
--- OUTSIDE RECORDS SUMMARY | 2025-08-04 09:41 | XMS_ITS | Encounter Summary ---
Author Organization [employer] Address [address] [facility] 7 [place] [address] Care Team Providers Care Fish Rod Maker Name Role Phone Keke Encinas MD Primary Care Provider [phone] Reason for Visit * Reason Onset Date Comments Appointment Request 03/15/2024 Encounter Details Date Type Department Care Team ([facility] Contact Info) Description 03/15/2024 Telephone [facility] CHC MED & PEDS [address] [place] [address] Keke Encinas MD [address] [place] [address] Appointment Request Social History Tobacco Use Types [...] 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 LVM to return call to nurses. * Telephone Encounter - Lenin Castro - 03/17/2024 12:53 PM EDT Tc from pt returning call regarding message prior. Please contact pt at [phone]. * Telephone Encounter - Pebbles Baumann RN - 03/17/2024 9:31 AM EDT TC X1 to pt regarding message below. LVM to return call to nurses. * Telephone Encounter - Mercedes Polanco - 03/15/2024 2:23 PM EDT Tc from pt requesting to r/s 02/25/24 appt due to having a family emergency and had to head out [place] and just got back . documented in this encounter Plan of Treatment Upcoming Encounters Date Type Department Care Team (Late [facility] Contact Info) Description 08/30/2025 9:30 AM EDT Office Visit [facility] MED & PEDS [address] [place] [address] Keke Encinas MD [address] [place] [address] documented as of this encounter Visit Diagnoses Not on filedocumented in this encounter Additional Health Concerns Assessment Noted Time PHQ-9 Depression Total Score: 12 023 3:42 PM EST documented as of this encounter Care Teams Fish Rod Maker Relationship Specialty Start Date End Date Keke Encinas MD [address] [place] [address] PCP - General Internal Medicine 09/24/16 documented as of this encounter
--- OUTSIDE RECORDS SUMMARY | 2025-08-04 09:41 | XMS_ITS | Encounter Summary ---
Author Organization [employer] Address [address] [facility] 7 [place] [address] Care Team Providers Care Technology Manager Name Role Phone Keke Encinas MD Primary Care Provider [phone] Reason for Visit * Reason Onset Date Comments Medication Question 01/08/2023 Encounter Details Date Type Department Care Team ([facility] Contact Info) Description 01/08/2023 Telephone [facility] CHC MED & PEDS [address] [place], [place] [phone] Keke Encinas MD [address] [place] [address] Medication Question Social History Tobacco Use Types Packs/Day Years [...] encounter Miscellaneous Notes * Telephone Encounter - Nedra Smalls RN - 01/10/2023 12:19 PM EST Incoming message from PCP LAURENI. Both meds sent RN called pt to inform that Rx has been sent to the pharmacy, no answer. LVM that Rx has been sent to pharmacy. * Telephone Encounter - Nedra Smalls RN - 01/09/2023 10:11 AM EST Return call placed to pt via [place] windows server engineer regarding message below. Pt states he is waiting on the refill for his Metoprolol and Lidocaine-prilocaine cream. Advised message will be sent to PCP and also PCP will be inform to send refill to the pharmacy. Pt agrees to plan. * Telephone Encounter - Ese Mcneill - 01/08/2023 3:15 PM EST Tc from pt requesting a call regarding pt medication questions. Please contact pt at [phone] documented in this encounter Plan of Treatment Upcoming Encounters Date Type Department Care Team (Late st Contact Info) Description 08/30/2025 9:30 AM EDT Office Visit [facility] CHC MED & PEDS [address] [place] [address] Keke Encinas MD [address] [place] [address] documented as of this encounter Visit Diagnoses Not on filedocumented in this encounter Care Teams Technology Manager Relationship Specialty Start Date End Date Keke Encinas MD [address] [place] [address] PCP - General Internal Medicine 09/24/16 documented as of this encounter
--- OUTSIDE RECORDS SUMMARY | 2025-08-04 09:42 | XMS_ITS | Encounter Summary ---
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 Question Answer Date of Assessment Author Patient Health Questionnaire-2 Score 5 06/2023 3:42 PM Rashaad Elena * If you checked off any problems on this questionnaire so far, Question Answer Date of Assessment Author How difficult have these problems made it for you to do your work, take care of things at home, or get along with other people? Very difficult 09/10/2023 3:42 PM Rashaad Elena * Over the last 2 weeks, how often have you been bothered by any of the following problems? Question Answer Date of Assessment Author Feeling nervous, anxious, or on edge 3 06/2023 3:42 PM Rashaad Elena Not being able to stop or co ntrol worrying 3 09/10/2023 3:42 PM Rashaad Elena Worrying too much about diff erent things 3 09/10/2023 3:42 PM Rashaad Elena Trouble relaxing 3 09/10/2023 3:42 PM Rashaad Nravaez Being so restless that it is hard to sit still 3 09/10/2023 3:42 PM Rashaad Elena Becoming easily annoyed or irritable 3 06/2023 3:42 PM Rashaad Elena Feeling afraid as if somethi ng awful might happen 0 09/10/2023 3:42 PM Rashaad Elena ROSEMARY-7 Total Score 18 09/10/2023 3:42 PM Rashaad Elena * Over the past 2 weeks, how often have you been bothered by any of the following problems? Question Answer Date of Assessment Author Little interest or pleasure in doing things More than half the days 09/10/2023 3:42 PM EST Rashaad Szymanski Feeling down, depressed, or hopeless Nearly every day 09/10/2023 3:42 PM EST Betty Szymanskiryrobert Trouble falling or staying asleep, or sleeping too much Not at all 09/10/2023 3:42 PM EST Rashaad Szymanski Feeling tired or having little energy Several days 09/10/2023 3:42 PM EST Rashaad Szymanski Poor appetite or overeating Several days 09/10/2023 3:42 PM EST Rashaad Szymanski Feeling bad about yourself - or that you are a failure or have let yourself or your family down More than half the days 09/10/2023 3:42 PM EST Rashaad Szymanski Trouble concentrating on things, such as reading the newspaper or watching television Several days 09/10/2023 3:42 PM EST Rashaad Szymanski Moving or speaking so slowly that other people could have noticed? Or the opposite - being so fidgety or restless that you have been moving around a lot more than usual. More than half the days 09/10/2023 3:42 PM Rashaad Elena Thoughts that you would be better off or hurting yourself in some way Not at all 09/10/2023 3:42 PM Rashaad Elena Patient Health Questionnaire-9 Score 12 09/10/2023 3:42 PM Rashaad Elena documented as of this encounter Plan of Treatment Upcoming Encounters Date Type Department Care Team (Late st Contact Info) Description 08/30/2025 9:30 AM EDT Office Visit [facility] MED & PEDS [address] [place] [address] Keke Encinas MD [address] [place] [address] documented as of this encounter Procedures Procedure Name Priority Date/Time Associated Diagnosis Comments COLONOSCOPY Routine 12/23/2017 documented in this encounter Results * Colonoscopy (12/23/2017) Colonoscopy Normal Normal Narrative Roselyn Ba - 12/23/2017 Recommended 3 year follow up us Historical Provider HEALTH MAINTENANCE Final Result documented in this encounter Visit Diagnoses Not on filedocumented in this encounter Care Teams Elementary [employer] Science Teacher Relationship Specialty Start Date End Date Keke Encinas MD [address] [place] [address] PCP - General Internal Medicine 09/24/16 documented as of this encounter
--- OUTSIDE RECORDS SUMMARY | 2025-08-04 09:42 | XMS_ITS | Encounter Summary ---
Author Organization [employer] Address [address] [place] [address] 7 [place] [address] Care Team Providers Care Screener Operator Name Role Phone Keke Encinas MD Primary Care Provider [phone] Encounter Details Date Type Department Care Team ([facility] Contact Info) Description 10/14/2022 Orders Only [facility] MEDICINE [address] [place] [address] Flor Dutton MD [address] [place], [place] [phone] Pain (Primary Dx) Social History Tobacco Use Types Packs/Day Years Used Date Smoking Tobacco: Never Assessed Sex and Gender Information Value Date Recorded Sex Assigned at Male 09/02/2022 10:15 AM EDT Legal Sex Male 10:15 AM EDT Gender Identity Choose not to disclose 10:15 AM EDT Sexual Orientation Choose not to disclose 2021 10:15 AM EDT documented as of this encounter Plan of Treatment Upcoming Encounters Date Type Department Care Team ([facility] Contact Info) Description 08/30/2025 9:30 AM EDT Office Visit [facility] CHC MED & PEDS [address] [place] [address] Keke Encinas MD [address] [place], [place] [phone] documented as of this encounter Visit Diagnoses Diagnosis Pain- Primary Generalized pain documented in this encounter Care Teams Screener Operator Relationship Specialty Start Date End Date Keke Encinas MD [address] [place], [place] [phone] PCP - General Internal Medicine 09/24/16 documented as of this encounter
--- NOTE | 2025-08-04 09:56 | PC.NURSE ---
Resting on stretcher. Med with Toradol for pain
[2025-08-04 10:38] LABS: Troponin-I High Sensitivity < 2.7 ng/L (<3.5-35.0)
[2025-08-04 10:39] LABS: D Dimer High Sensitivity 814 NG/ML
[2025-08-04 11:39] VITALS: BP 154/79; PULSE 55; RESP 20; TEMP 36.8; O2SAT 98
[2025-08-04] MEDS: iohexoL 350 MG/ML 100 ML INFUS..BTL IV (12:12)
[2025-08-04 13:47] VITALS: BP 154/79; PULSE 55; RESP 20; TEMP 36.8; O2SAT 98
== END 2025-08-04 13:47 | disposition home or self-care (01) ==
PROVIDERS: Physician Assistant Medical; Emergency Provider Emergency Medicine; PCP Internal Medicine
DX: R07.89 Other chest pain (principal); I10 Essential (primary) hypertension; R00.1 Bradycardia, unspecified; I25.2 Old myocardial infarction; Z79.899 Other long term (current) drug therapy
CPT/HCPCS: 36415; 71046; 71275; 80048; 84484; 85025; 85379; 93005; 96372; 99284; 99285; J1885; Q9967

== ENCOUNTER → 2025-08-04 08:33 | Outpatient (BNV) | payer MEDICAID, SELFPAY | PROVIDERS: Emergency Provider Emergency Medicine; PCP Internal Medicine; Visit Provider Internal Medicine | DX: R00.1 Bradycardia, unspecified (principal); I44.0 Atrioventricular block, first degree | CPT/HCPCS: 93010 ==

== ENCOUNTER → 2025-08-04 08:40 | Outpatient (BNV) | payer MEDICAID, SELFPAY | PROVIDERS: Emergency Provider Emergency Medicine; PCP Internal Medicine; Visit Provider Radiology Diagnostic Radiology | DX: R07.81 Pleurodynia (principal); R79.1 Abnormal coagulation profile; M54.9 Dorsalgia, unspecified | CPT/HCPCS: 71046; 71275 ==

== ENCOUNTER 2025-08-30 10:10 | Outpatient (REF) | payer MEDICAID, SELFPAY ==
--- OUTSIDE RECORDS SUMMARY | 2025-08-30 09:30 | XMS_ITS | Encounter Summary ---
Author Organization [employer] Address [address] [facility] 7 [place] [address] Care Team Providers Care Flat Breakdown Processor Name Role Phone Keke Encinas MD Primary Care Provider [phone] Encounter Details Date Type Department Care Team ([facility] Contact Info) Description 08/30/2025 9:30 AM EDT Office Visit [facility] PEDS [address] [place], [place] [phone] Keke Encinas MD [address] [place] [address] Primary hypertension (Primary Dx); Mixed hyperlipidemia; Elevated fasting glucose; Rheumatoid arthritis involving both hands with positive rheumatoid factor (CMS/HCC) (HCC); Right elbow pain; Other male erectile dysfunction; Onychomycosis; Encounter for immunization Social History Tobacco Use Types Packs/Day Years Used Date Smoking Tobacco: Never Depression Answer Date Recorded Patient Health Questionnaire-9 Score 0 08/30/2025 Patient Health Questionnaire-9 Score 0 08/30/2025 Last PHQ-9: Questionnaire Data Not on file 1 Housing Stability Answer Date Recorded What is your housing situation today? 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 Not on file Not on file documented as of this encounter Last Filed Vital Signs Vital Sign Reading Time Taken Comments Blood Pressure 142/100 08/30/2025 9:13 AM EDT Pulse 68 08/30/2025 9:13 AM EDT Temperature 36.6 C (97.8 F) 08/30/2025 9:13 AM EDT Respiratory Rate 16 08/30/2025 9:13 AM EDT Oxygen Saturation - - Inhaled Oxygen Concentration - - Weight 108 kg (239 lb) 08/30/2025 9:13 AM EDT Height 182.9 cm (6') 08/30/2025 9:13 AM EDT Body Mass Index 32.41 08/30/2025 9:13 AM EDT documented in this encounter Functional Status * Over the past 2 weeks, how often have you been bothered by any of the following problems? Question Answer Date of Assessment Author Patient Health Questionnaire-2 Score 0 08/04 10:00 AM EDT Tiffany Caputo MA * Little interest or pleasure in doing things Answer Date of Assessment Author Not at all 08/30/2025 10:00 AM EDT Cheryl Caputo MA * Feeling down, depressed, or hopeless Answer Date of Assessment Author Not at all 08/30/2025 10:00 AM Cheryl Cisneros MA * Trouble falling or staying asleep, or sleeping too much Answer Date of Assessment Author Not at all 08/30/2025 10:00 AM Cheryl Cisneros MA * Feeling tired or having little energy Answer Date of Assessment Author Not at all 08/30/2025 10:00 AM Cheryl Cisneros MA * Poor appetite or overeating Answer Date of Assessment Author Not at all 08/30/2025 10:00 AM Cheryl Cisneros MA * Feeling bad about yourself - or that you are a failure or have let yourself or your family down Answer Date of Assessment Author Not at all 08/30/2025 10:00 AM Cheryl Cisneros MA * Trouble concentrating on things, such as reading the newspaper or watching television Answer Date of Assessment Author Not at all 08/30/2025 10:00 AM Cheryl Cisneros MA * Moving or speaking so slowly that other people could have noticed? Or the opposite - being so fidgety or restless that you have been moving around a lot more than usual. Answer Date of Assessment Author Not at all 08/30/2025 10:00 AM Cheryl Cisneros MA * Thoughts that you would be better off or hurting yourself in some way Answer Date of Assessment Author Not at all 08/30/2025 10:00 AM Cheryl Cisneros MA * Patient Health Questionnaire-9 Score Answer Date of Assessment Author 0 08/30/2025 10:00 AM Cheryl Cisneros MA documented as of this encounter Plan of Treatment Scheduled Orders Name Type Priority Associated Diagnoses Orde r Schedule CBC auto differential Lab Routine Rheumatoid arthritis involving both hands with positive rheumatoid factor (CMS/HCC) Expected: 08/30/2025 (Approximate), Expires: 08/30/2026 Comprehensive Metabolic Panel Lab Routine Elevated fasting glucose Expected: 08/30/2025 (Approximate), Expires: 08/30/2026 Lipid Panel, Standard Lab Routine Mixed hyperlipidemia Elevated fasting glucose Expected: 08/30/2025 (Approximate), Expires: 08/30/2026 TSH with Reflex to Free T4 Lab Routine Mixed hyperlipidemia Elevated fasting glucose Expected: 08/30/2025 (Approximate), Expires: 08/30/2026 XR Hand 3+ Views Right Imaging Routine Rheumatoid arthritis involving both hands with positive rheumatoid factor (CMS/HCC) (HCC) Expected: 08/30/2025, Expires: 08/30/2026 Rheumatoid Factor Lab Routine Rheumatoid arthritis involving both hands with positive rheumatoid factor (CMS/HCC) (HCC) Expected: 08/30/2025, Expires: 08/30/2026 Cyclic Citrullinated Peptide (CCP) Antibody (IgG) Lab Routine Rheumatoid arthritis involving both hands with positive rheumatoid factor (CMS/HCC) (HCC) Expected: 08/30/2025 (Approximate), Expires: 08/30/2026 Sed Rate by Modified [place] Lab Routine Rheumatoid arthritis involving both hands with positive rheumatoid factor (CMS/HCC) (HCC) Expected: 08/30/2025, Expires: 08/30/2026 C-reactive Protein Lab Routine Rheumatoid arthritis involving both hands with positive rheumatoid factor (CMS/HCC) (HCC) Expected: 08/30/2025 (Approximate), Expires: 08/30/2026 XR Elbow 3+ Views Right Imaging Routine Right elbow pain Expected: 08/30/2025, Expires: 08/30/2026 XR Ribs 2 Views Right Imaging Routine Right elbow pain Expected: 08/30/2025, Expires: 08/30/2026 Testosterone, Free (Dialysis) And Total, MS Lab Routine Other male erectile dysfunction Expected: 08/30/2025 (Approximate), Expires: 08/30/2026 Hemoglobin A1c Lab Routine Elevated fasting glucose Expected: 08/30/2025 (Approximate), Expires: 08/30/2026 documented as of this encounter Visit Diagnoses Diagnosis Primary hypertension- Primary Unspecified essential hypertension Mixed hyperlipidemia Elevated fasting glucose Impaired fasting glucose Rheumatoid arthritis involving both hands with positive rheumatoid factor (CMS/HCC) (HCC) Right elbow pain Pain in joint, upper arm Other male erectile dysfunction Onychomycosis Dermatophytosis of nail Encounter for immunization documented in this encounter Additional Health Concerns Assessment Noted Time PHQ-9 Depression Total Score: 0 08/30/20 25 10:00 AM EDT documented as of this encounter Care Teams Flat Breakdown Processor Relationship Specialty Start Date End Date Keke Encinas MD [address] [place] [id number] PCP - General Internal Medicine 09/24/16 documented as of this encounter
--- OUTSIDE RECORDS SUMMARY | 2025-08-30 12:18 | XMS_ITS | Encounter Summary ---
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
--- OUTSIDE RECORDS SUMMARY | 2025-08-30 12:18 | XMS_ITS | Encounter Summary ---
Author Organization [employer] Address [address] [facility] [address] [place] [address] Care Team Providers Care Retail Loan Originator Name Role Phone Keke Encinas MD Primary Care Provider [phone] Reason for Visit * Reason Onset Date Comments Medication Question 01/08/2023 Encounter Details Date Type Department Care Team ([facility] Contact Info) Description 01/08/2023 Telephone [facility] MED [facility]EDS [address] [place], [place] [phone] Keke Encinas MD [address] [place] [address] Medication Question Social History Tobacco Use Types [...] EST Return call placed to pt via [place] 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 Pt states he is [...] pt medication questions. Please contact pt at [phone] documented in this encounter Plan of Treatment Not on file documented as of this encounter Visit Diagnoses Not on filedocumented in this encounter Care Teams Retail Loan Originator Relationship Specialty Start Date End Date Keke Encinas MD [address] [place] [id number] PCP - General Internal Medicine 09/24/16 documented as of this encounter
--- OUTSIDE RECORDS SUMMARY | 2025-08-30 12:18 | XMS_ITS | Clinical Summary ---
Author Organization [employer] Address [address] [facility] 7t [place] [address] Care Team Providers Care Kitchen Worker Name Role Phone Keke Encinas MD Primary Care Provider [phone] Allergies No known active allergies Medications * This document contains information received from the source organization and may not represent a complete record from that organization. celecoxib (CeleBREX) 200 MG capsule Take 200 mg by mouth. 06/04/2023 Active lidocaine (Lidoderm) 5 % patch Apply 1 patch topically. 08/04/2025 Active tadalafil (Cialis) 5 MG tabletIndications :Other male erectile dysfunction Take 1 tablet (5 mg) by mouth Once per day. 30 tablet 3 08/30/2025 09/29/20 25 Active losartan (Cozaar) 25 MG tabletIndications :Primary hypertension Take 1 tablet (25 mg) by mouth Once per day. 30 tablet 11 08/30/2025 08/30/20 26 Active Hospital, Clinic, or Other Facility Administered Medication [...] abut elderly mother who lives alone in [place]. Provided space for Jorge to vent and [...] treatment engagement. PLAN: 1. Follow up with [facility]: Not recommended for follow-up 2. Patient goal is improve mental health 3. Behavioral Recommendations a. Ind. Therapy, referral will be submitted. b. Medication Management, referral will be submitted c. Use of coping skills provide as recommended d. [facility] contact information for extra support. Moderate depressive disorder 09/10/2023 Rheumatoid arthritis involvi ng both hands with positive rheumatoid factor (CMS/HCC) 08/13/2023 Obesity (BMI 30-39.9) 01/10/2016 Elevated fasting glucose 01/10/2016 Hyperlipidemia 01/10/2016 Hypertensive disorder 01/10/2016 Obstructive sleep apnea syndrome 01/10/2016 Encounters Date Type Department Care Team Description 08/30/2025 9:30 AM EDT Office Visit [facility] [address] [place], [place] [phone] Keke Encinas MD Primary hypertension (Primary Dx); Mixed hyperlipidemia; Elevated fasting glucose; Rheumatoid arthritis involving both hands with positive rheumatoid factor (CMS/HCC) (HCC); Right elbow pain; Other male erectile dysfunction; Onychomycosis; Encounter for immunization 08/30/2025 Travel 08/27/[address] [facility] [address], [place] [phone] Keke Encinas MD Chart Prep 08/19/[address] [facility] [address] [place] [address] Keke Encinas MD Pre-visit Planning (SDOH screening completed on 07/19/25 ) 08/09/[address] [facility] [address] [place], [place] [phone] Davis, Hyacinth, OD Presbyopia (Primary Dx) 08/04/2025 1:30 PM EDT Office Visit [facility] [address] [place] [address] Hyacinth Cannon, OD Regular astigmatism of both eyes (Primary Dx) 08/04/2025 Orders Only GENERIC EXTERNAL DATA DEPARTMENT Provider, Generic External Data 07/26/[address] [facility] [address] [place] [phone] Keke Encinas MD No Show 07/25/[address] [facility] [address] [place], [place] [phone] Keke Encinas MD chart prep 07/19/[address] [facility] [address] [place] [phone] Keke Encinas MD Care Coordination ([facility] outreach for SDOH housing search-referral completed ) 07/19/[address] [facility] [address] [place] [phone] Keke Encinas MD Pre-visit Planning (SDOH screening positive and Tobacco screening negative) 06/13/2025 2:00 PM EDT Office Visit [facility] [address] [place] [address] Hyacinth Cannon, OD Combined forms of age-related cataract of both eyes (Primary Dx); Epiretinal membrane (ERM) of right eye; Presbyopia 06/13/2025 Travel from Last 3 Months Immunizations Immunization Administration Dates Next Due Influenza injectable quadriv alent preservative free 10/01/2021,08/31/2020,08/18/2017 Influenza, Split (incl. 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 Not on file Not on file Last Filed Vital Signs Vital Sign Reading Time Taken Comments Blood Pressure 142/100 08/30/2025 9:13 AM EDT Pulse 68 08/30/2025 9:13 AM EDT Temperature 36.6 C (97.8 F) 08/30/2025 9:13 AM EDT Respiratory Rate 16 08/30/2025 9:13 AM EDT Oxygen Saturation 97% 09/16/2023 1:48 PM EST Inhaled Oxygen Concentration - - Weight 108 kg (239 lb) 08/30/2025 9:13 AM EDT Height 182.9 cm (6') 08/30/2025 9:13 AM EDT Body Mass Index 32.41 08/30/2025 9:13 AM EDT Plan of Treatment Health Maintenance Due Date Last Done Comments CT Colonography 1965 FIT DNA/Cologuard 1965 FIT 1965 FOBT 1965 HIV Screening 1965 Sigmoidoscopy 1965 Pneumococcal Vaccine: 50+ Years (1 of 1 - PCV) 2014 Zoster Vaccines (1 of 2) 2014 Colonoscopy 12/23/2020 12/23/2017 Colorectal Cancer Screening 12/23/2020 COVID-19 Vaccine (3 - season) 2025 10/22/2021, 10/01/2021 SDOH Screening 07/19/2026 07/19/2025 Tobacco Screening 07/25/2026 07/25/2025 Alcohol/Substance Use Screening 08/30/2026 08/30/2025 Depression Screening 08/30/2026 08/30/2025, 08/30/20 25 Disability Screening 08/30/2026 08/30/2025 Lipid Panel 05/13/2028 05/13/2023, 08/29/2020 DTaP/Tdap/Td Vaccines (2 - Td or Tdap) 01/06/2034 01/07/2024 RSV Patients and Patients Aged 60 years or older (1 - 1-dose 75+ series) 2039 Hepatitis C Screening Completed 08/28/2021 Influenza Vaccine Completed 08/30/2025, , 08/31/2020, Additional history exists HIB Vaccines Aged Out No longer eligi [...] Procedure Name Priority Date/Time Associated Diagnosis Comments CTA CHEST PE PROTOCAL Routine 08/04/2025 11:56 AM EDT D DIMER HIGH SENSITIVITY Routine 08/04/2025 10:12 AM EDT HIGH SENSITIVITY TROPONIN I Routine 08/04/2025 8:54 AM EDT BASIC METABOLIC [...] Recently Relevant to Health Maintenance Results * CTA Chest PE Protocal (08/04/2025 11:56 AM EDT) Anatomical Region Laterality Modality Body, Chest Computed Tomogra phy 08/04/2025 11:5 6 AM EDT Narrative 08/04/2025 12:48 PM EDT [address] [address] [address] Scan Report Signed with Addenda Patient: Jorge Szymanski MR#: [id number] 8 : 1965 Acct:[id number] Age/Sex: 59 / M ADM Date: 08/04/25 Loc: .ED Attending Dr: Ordering Physician: Bianca Valera Date of Service: 08/04/25 Procedure(s): CT angio chest PE protocol Accession Number(s): [id number] cc: Keke Encinas MD; Bianca Valera Report Number: [id number]: Total DLP = 460.00 mGy-cm Reason for Exam: elevated dimer R lower lung pain w/ insp ADDENDUM ADDENDUM #1 Addendum: IMPRESSION: Gynecomastia. Electronically signed by: William Mercedes MD 08/04/2025 01:39 PM EDT Addendum Dictated By: William Mercedes MD Addendum Signed By: <Electronically signed by William Mercedes MD in OV> 08/04/25 1339 Addendum Cosigned By: DD/ /28/1155 TD/TT: 08/04/2512/28/1232 EXAMINATION: CT ANGIOGRAM CHEST CLINICAL INFORMATION: Elevated d-dimer, right lower pleuritic pain with inspiration COMPARISON: 09/03/2022 TECHNIQUE: Multiple axial images were obtained through the chest after the administration of 65 mL of Omnipaque 350 intravenous contrast. Extensive vascular post-processing including two-dimensional and three-dimensional reformatted images were created and reviewed on an independent workstation. This CT examination was performed using dose optimization techniques as appropriate, variously including the following: *Automated exposure control *Adjustment of mA and/or kV according to patient size (this includes techniques or standardized protocols for targeted exams where dose is matched to indication/reason for exam; i.e. extremities or head) *Use of iterative reconstruction technique FINDINGS: QUALITY OF STUDY/CONTRAST BOLUS: Adequate PULMONARY ARTERIES: No filling defects are identified in the pulmonary arteries. THORACIC AORTA: No aneurysm or dissection. There is minimal atherosclerotic ossification. LUNGS AND PLEURA: There is minimal dependent atelectasis. Lungs are clear otherwise. There is no pleural effusion or pleural thickening. MEDIASTINUM: Unremarkable CORONARY ARTERY CALCIFICATION: Present CHEST WALL/AXILLA: Nodular soft tissue density is present in the subareolar region. UPPER ABDOMEN: There is hypodensity in the middle left kidney consistent with a benign simple renal cyst. BONES: Osteophytes are noted in the thoracic spine. CT/CT angio chest PE protocol IMPRESSION: No evidence of pulmonary artery embolus or other pulmonary parenchymal disease. Fleischner guidelines were followed. . Electronically signed by: William Mercedes MD 08/04/2025 12:45 PM EDT RP Dictated By: William Mercedes MD Signed By: <Electronically signed by William Mercedes MD in OV> 08/04/25 1245 DD/ 55 TD/TT: 08/04/25 1233 Auto Striper: Procedure Note Donotuseinterpreter, Image - 08/04/[address] [place] [address] [address] Scan Report Signed with Addenda Patient: Jorge Szymanski AMR#: [id number] 8 : 1965Acct:[id number] Age/Sex: 59 / MADM Date: 08/04/25 Loc: .ED Attending Dr: Ordering Physician: Bianca Valera Date of Service: 08/04/25 Procedure(s): CT angio chest PE protocol Accession Number(s): [id number] cc: Keke Encinas MD; Bianca Valera Report Number: [id number]: Total DLP = 460.00 mGy-cm Reason for Exam: elevated dimer R lower lung pain w/ insp ADDENDUM ADDENDUM #1 Addendum: IMPRESSION: Gynecomastia. Electronically signed by: William Mercedes MD 08/04/2025 01:39 PM EDT RP Addendum Dictated By: William Mercedes MD Addendum Signed By: <Electronically signed by William Vo MD in OV> 08/04/25 1339 Addendum Cosigned By: DD/ /28/1155 TD/TT: 08/04/2512/28/1232 EXAMINATION: CT ANGIOGRAM CHEST CLINICAL INFORMATION: Elevated d-dimer, right lower pleuritic pain with inspiration COMPARISON: 09/03/2022 TECHNIQUE: Multiple axial images were obtained through the chest after the administration of 65 mL of Omnipaque 350 intravenous contrast. Extensive vascular post-processing including two-dimensional and three-dimensional reformatted images were created and reviewed on an independent workstation. This CT examination was performed using dose optimization techniques as appropriate, variously including the following: *Automated exposure control *Adjustment of mA and/or kV according to patient size (this includes techniques or standardized protocols for targeted exams where dose is matched to indication/reason for exam; i.e. extremities or head) *Use of iterative reconstruction technique FINDINGS: QUALITY OF STUDY/CONTRAST BOLUS: Adequate PULMONARY ARTERIES: No filling defects are identified in the pulmonary arteries. THORACIC AORTA: No aneurysm or dissection. There is minimal atherosclerotic ossification. LUNGS AND PLEURA: There is minimal dependent atelectasis. Lungs are clear otherwise. There is no pleural effusion or pleural thickening. MEDIASTINUM: Unremarkable CORONARY ARTERY CALCIFICATION: Present CHEST WALL/AXILLA: Nodular soft tissue density is present in the subareolar region. UPPER ABDOMEN: There is hypodensity in the middle left kidney consistent with a benign simple renal cyst. BONES: Osteophytes are noted in the thoracic spine. CT/CT angio chest PE protocol IMPRESSION: No evidence of pulmonary artery embolus or other pulmonary parenchymal disease. Fleischner guidelines were followed. . Electronically signed by: William Mercedes MD 08/04/2025 12:45 PM EDT Dictated By: William Mercedes MD Signed By: <Electronically signed by William Mercedes MD in OV> 08/04/25 1245 DD/ 1156 TD/TT: 08/04/25 1233 Auto Striper: us [facility] External Provider IMG CT PROCEDURES Edited Result - Final * D Dimer High Sensitivity (08/04/2025 10:12 AM EDT) D Dimer High Sensitivity 814 NG/ML [facility] Comment:D-DIMER HS REFERENCE RANGENote: Our assay reports D-Dimer Units (D- DU).The cut-off value for venous thromboembolic (VTE) disease is230 ng/mL. This value has a very high negative predictivevalue when the patient has a low to moderate clinicalprobability of VTE.The upper limit of normal is 243 ng/mL. 08/04/2025 10:1 2 AM EDT 08/04/2025 10:14 AM EDT Generic External Data Provider LAB BLOOD ORDERAB LES Final Result Performing Organization Address [facility] Co de Phone Number [facility] [address] [place] [phone] * High Sensitivity Troponin I (08/04/2025 8:54 AM EDT) [facility] TROPONIN I HIGH SENSITIVITY <2.7 <3.5 - 35.0 ng/L [facility] Comment:The [place] high sens itivity Troponin-I results should beused in conjunction with other diagnostic information suchas ECG, clinical observations and information, and patientsymptoms to aid in the diagnosis of [place]. 08/04/2025 8:54 AM EDT 08/04/2025 10:19 AM EDT Generic External Data Provider LAB BLOOD ORDERAB LES Final Result Performing Organization Address [facility] Phone Number [facility] [address] [place] [phone] * (ABNORMAL) CBC auto differential (08/04/2025 8:54 AM EDT) Pathologist [facility] White Blood Count 6.2 4.8 - 10.8 X10*3/uL [facility] Red Blood Count 4.67 4.60 - 5.80 X10*6/uL [facility] Hemoglobin 15.5 14.0 - 18.0 g/dl [facility] Hematocrit 44.5 42.0 - 52.0 % [facility] Mean Corpuscular Volume 95.3 80.0 - 98.0 fL [facility] Mean Corpuscular Hemoglobin 33.2(H) 27.0 - 33.0 pg [facility] Mean Corpuscular HGB Conc 34.8 31.0 - 36.0 g/dl [facility] Red Cell Distribution Width 13.8 11.0 - 16.0 % [facility] Platelet Count 211 160 - 400 X10*3/uL [facility] Mean Platelet Volume 9.2(L) 9.4 - 12.4 fL [facility] Neutrophils Percent Auto 59.0 45 - 73 % [facility] Imm Gran Pct Auto 0.2 0.0 - 0.4 % [facility] Lymphocytes Percent Auto 25.8 20 - 40 % [facility] Monocytes Percent Auto 11.2(H) 2 - 11 % [facility] Eosinophils Percent Auto 3.0 0 - 4 % [facility] Basophils Percent Auto 0.8 0 - 2 % [facility] NRBC Pct Auto 0.0 0.0 - 0.2 /100WBC [facility] Neutrophils Absolute Auto 3.7 2.0 - 8.3 x10*3/uL [facility] Imm Gran Abs Auto 0.01 0.00 - 0.03 X10*3/uL [facility] Lymphocytes Absolute Auto 1.6 1.2 - 4.9 X10*3/uL [facility] Monocytes Absolute Auto 0.7 0.1 - 1.2 X10*3/uL [facility] Eosinophils Absolute Auto 0.2 0.0 - 0.4 X10*3/uL [facility] Basophils Absolute Auto 0.1 0.0 - 0.2 X10*3/uL [facility] NRBC Abs Auto 0.000 0.0 - 0.012 X10*3/uL [facility] 08/04/2025 8:54 AM EDT 08/04/2025 8:56 AM EDT us Generic External Data Provider LAB BLOOD ORDERAB LES Final Result [facility] [address] [place] [phone] * Basic Metabolic Panel (08/04/2025 8:54 AM EDT) Sodium 139 135 - 145 mmol/L [facility] Potassium 4.6 3.3 - 5.1 mmol/L [facility] Chloride 104 96 - 108 mmol/L [facility] Carbon Dioxide 28 22 - 29 mmol/L [facility] Anion Gap 12 12 - 20 [facility] Urea Nitrogen (BUN) 14 9 - 16 mg/dL [facility] Creatinine, Serum 0.81 0.5 - 1.4 mg/dL [facility] Creatinine Clr Calc Pharmacy 123.6 [facility] Comment:eGFR (calculated fro m the MDRD study equation) and eCrCl(calculated from the Cockcroft-Gault equation) are based ondifferent parameters and may not yield comparable results.If eCrCl result is absurd, please check patient'sheight/weight. Estimated Glomerular Filt Rate >60 [facility] Comment:Chronic Kidney Disea se: Estimated GFR < 60 mL/min/1.34s7Aloigl Kidney Disease: Estimated GFR < 15 mL/min/1.73m2 Glucose 100 60 - 115 mg/dL [facility] Calcium 9.1 8.4 - 10.2 mg/dL [facility] 08/04/2025 8:54 AM EDT 08/04/2025 8:56 AM EDT us Generic External Data Provider LAB BLOOD ORDERAB LES Final Result [facility] [address] [place] [phone] * XR Chest 2 Views (08/04/2025 8:50 AM EDT) Anatomical Region Laterality Modality Chest Radiographic Keena ging 08/04/2025 8:50 AM EDT Narrative 08/04/2025 9:20 AM EDT [address] [address] XRay Report Signed Patient: Jorge Szymanski MR#: [id number] 8 : 1965 Acct:[id number] Age/Sex: 59 / M ADM Date: 08/04/25 Loc: HO.ED Attending Dr: Ordering Physician: Mohan Lopez DO Date of Service: 08/04/25 Procedure(s): XR chest 2V Accession Number(s): [id number] cc: Keke Encinas MD; Mohan Lopez DO [...] 08/04/25 0917 DD/ 0850 TD/TT: 08/04/25 0852 Auto Striper: Procedure Note Donotuseinterpreter, Image - 08/04/2025 [place] [address] XRay Report Signed Patient: Jorge Szymanski [facility]#: [id number] 8 : 1965Acct:[id number] Age/Sex: 59 / MADM Date: 08/04/25 Loc: HO.ED Attending Dr: Ordering Physician: Mohan Lopez DO Date of Service: 08/04/25 Procedure(s): XR chest 2V Accession Number(s): [id number] cc: Keke Encinas MD; Mohan Lopez DO [...] Umberto Lee MD in OV> 08/04/25916 DD/ TD/TT: 08/04/25851 Auto Striper: [facility] External Provider IMG XR PROCEDURES Edited Result - Final * Lipid Panel, Standard (05/13/2023 11:07 AM EDT) Triglycerides 167 mg/dL [facility] Comment:Desirable Triglyceri de: less than 150 mg/dLBorderline High Triglyceride 150-199 mg/dLHigh Triglyceride: 200-499 mg/dLVery High Triglyceride: greater than or equal to 5OO mg/dL Cholesterol 218 mg/dL [facility] Comment:Desirable Cholestero l: less than 200 mg/dLBorderline High Cholesterol: 200-239 mg/dLHigh Cholesterol: greater than 239 mg/dL LDL Cholesterol Calculated 129 mg/dl [facility] Comment:Desirable LDL: less than 100 mg/dLNear Optimal/Above Optimal LDL: 110- 129 mg/dLBorderline High LDL: 130-159 mg/dLHigh LDL: 160-189 mg/dLVery High LDL: greater than or equal to 190 mg/dL HDL Cholesterol 56 mg/dL [facility] Comment:Desirable HDL: great er than 40 mg/dL Note: This HDL assay may give artificially low results in patients with liver disease. 05/13/2023 11:0 7 AM EDT 05/13/2023 2:13 PM EDT [facility] External Provider LAB BLO OD ORDERABLES Final Result [facility] [address] [place] [phone] * Hepatitis A,B,C Profile (08/28/2021 7:39 AM EDT) Hepatitis B Core Antibody Nonreactive Nonreactive [facility] Hepatitis B Surface Antibody NONREACTIVE Nonreactive [facility] Comment:Nonreactive: < 8.00 mIU/mL Hepatitis B Surface Antigen Negative Negative [facility] Hepatitis C Antibody Nonreactive Nonreactive [facility] Comment: Antibodies to HCV not detected; does not exclude early acute HCV infection. 08/28/2021 7:39 AM EDT Historical Provider HISTORICAL/NON ORDERABLE LABS Final Result Performing Organization Address City/[facility]/ZIP Co de Phone Number [facility] [address] * Colonoscopy (12/23/2017) Colonoscopy Normal Normal Narrative Roselyn Ba - 12/23/2017 Recommended 3 year follow up Historical Provider HEALTH MAINTENANCE Final Result from Last 3 Months or Most Recently Relevant to Health Maintenance Insurance [facility] C3 Care Teams Kitchen Worker Relationship Specialty Start Date End Date Keke Encinas MD [address] [place] [phone] PCP - General Internal Medicine 09/24/16
--- OUTSIDE RECORDS SUMMARY | 2025-08-30 12:18 | XMS_ITS | Encounter Summary ---
Author Organization [employer] Address [address] [facility] 7 [place] [address] Care Team Providers Care Vp Marketing Name Role Phone Keke Encinas MD Primary Care Provider [phone] Reason for Visit * Reason Onset Date Comments Referral 02/02/2024 Encounter Details Date Type Department Care Team (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 Can discuss with provider. * Telephone Encounter - Jose Caputo - 02/02/2024 10:32 AM EDT Tc from patient requesting a referral for [facility] states would like to be seen [...] documented as of this encounter Care Teams Vp Marketing Relationship Specialty Start Date End Date Keke Encinas MD [address] [place] [phone] PCP - General Internal Medicine 09/24/16 documented as of this encounter
--- OUTSIDE RECORDS SUMMARY | 2025-08-30 12:18 | XMS_ITS | Encounter Summary ---
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 * Telephone Encounter - Lenin Castro - 03/22/2024 11:29 AM EDT TC from pt requesting new referral: Address: [address] [place] [address] [id number] [phone] Facility Name: [facility]. Type of Specialist: Orthopedics documented in this encounter Plan of Treatment Not on file documented as of this encounter Visit Diagnoses Not on filedocumented in this encounter Additional Health Concerns Assessment Noted Time PHQ-9 Depression Total Score: 12 023 3:42 PM EST documented as of this encounter Care Teams Health Underwriter Relationship Specialty Start Date End Date Keke Encinas MD [address] [place] [phone] PCP - General Internal Medicine 09/24/16 documented as of this encounter
--- OUTSIDE RECORDS SUMMARY | 2025-08-30 12:18 | XMS_ITS | Encounter Summary ---
Author Organization [employer] Address 75 [facility] 7 [place] [address] Care Team Providers Care Physiotherapy Practice Manager Name Role Phone Keke Encinas MD Primary Care Provider [phone] Reason for Visit * Reason Onset Date Comments Chart Prep 08/27/2025 Encounter Details Date Type Department Care Team ([facility] Contact Info) Description 08/27/[address] 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 Not on file documented as of this encounter Miscellaneous Notes * Telephone Encounter - Sienna Castro MA - 08/27/2025 9:33 AM EDT Chart Prep Labs: not applicable Images: done Referrals: not applicable Vaccines due: Covid, Flu, PCV20, and Zoster Screenings: colonoscopy and STI screening Overdue care gaps: SBIRT, PHQ-9, Disability screen, and Tobacco documented in this encounter Plan of Treatment Not on file documented as of this encounter Visit Diagnoses Not on filedocumented in this encounter Additional Health Concerns Assessment Noted Time PHQ-9 Depression Total Score: 12 023 3:42 PM EST documented as of this encounter Care Teams Physiotherapy Practice Manager Relationship Specialty Start Date End Date Keke Encinas MD [address] [place] [address] [place] [address] PCP - General Internal Medicine 09/24/16 documented as of this encounter
--- OUTSIDE RECORDS SUMMARY | 2025-08-30 12:18 | XMS_ITS | Encounter Summary ---
Author Organization [employer] Address 75 [facility] 7 [place] [address] Care Team Providers Care Rn Office Name Role Phone Keke Encinas MD Primary Care Provider [phone] Reason for Visit * Reason Onset Date Comments Med Refill 01/08/2023 Encounter Details Date Type Department Care Team ([facility] Contact Info) Description 01/08/[address] [facility] CHC MED & PEDS [address] [place], [place] [phone] Keke Encinas MD [address] [place] [address] Med Refill Social History Tobacco Use Types [...] pt never receivemedication. Please sent to [id number] [place] - [address] [facility] documented in this encounter Plan of Treatment Not on file documented as of this encounter Visit Diagnoses Not on filedocumented in this encounter Care Teams Rn Office Relationship Specialty Start Date End Date Keke Encinas MD [address] [place] [address] PCP - General Internal Medicine 09/24/16 documented as of this encounter
--- OUTSIDE RECORDS SUMMARY | 2025-08-30 12:18 | XMS_ITS | Encounter Summary ---
Author Organization [employer] Address [address] [place] [address] 7t [place] [address] Care Team Providers Care Telephone Appointment Clerk Name Role Phone Keke Encinas MD Primary Care Provider [phone] Encounter Details Date Type Department Care Team (Latest Contact Info) Description 08/30/2025 Travel Social History Tobacco Use Types Packs/Day Years Used Date Smoking Tobacco: Never Depression Answer Date Recorded Patient Health Questionnaire-9 Score 0 08/30/2025 Patient Health Questionnaire-9 Score 0 08/30/2025 Last PHQ-9: Questionnaire Data Not on file 1 Housing Stability Answer Date Recorded What is your housing situation today? 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 Question Answer Date of Assessment Author Patient Health Questionnaire-2 Score 0 08/04 10:00 AM Tiffany Cisneros MA * Little interest or pleasure in doing things Answer Date of Assessment Author Not at all 08/30/2025 10:00 AM Cheryl Cisneros MA * Feeling down, depressed, or hopeless Answer Date of Assessment Author Not at all 08/30/2025 10:00 AM Cheryl Cisneros MA * Trouble falling or staying asleep, or sleeping too much Answer Date of Assessment Author Not at all 08/30/2025 10:00 AM Cheryl Cisneros MA * Feeling tired or having little energy Answer Date of Assessment Author Not at all 08/30/2025 10:00 AM hCeryl Cisneros MA * Poor appetite or overeating [...] 10:00 AM EDT Cheryl Caputo MA * Thoughts that you would be better off or hurting yourself in some way Answer Date of Assessment Author Not at all 08/30/2025 10:00 AM EDT Cheryl Caputo MA * Patient Health Questionnaire-9 Score Answer Date of Assessment Author 0 08/30/2025 10:00 AM EDT Cheryl Caputo MA documented as of this encounter Plan of Treatment Not on file documented as of this encounter Visit Diagnoses Not on filedocumented in this encounter Additional Health Concerns Assessment Noted Time PHQ-9 Depression Total Score: 0 08/30/20 25 10:00 AM EDT documented as of this encounter Care Teams Telephone Appointment Clerk Relationship Specialty Start Date End Date Keke Encinas MD [address] [place] [address] PCP - General Internal Medicine 09/24/16 documented as of this encounter
--- OUTSIDE RECORDS SUMMARY | 2025-08-30 12:18 | XMS_ITS | Encounter Summary ---
Author Organization [employer] Address 75 [facility] 7 [place] [address] Care Team Providers Care Practicing Urologist Name Role Phone Keke Encinas MD Primary Care Provider [phone] Reason for Visit * Reason Onset Date Comments Appointment Request 02/09/2024 Encounter Details Date Type Department Care Team ([facility] Contact Info) Description 02/09/2024 Telephone [facility] MEDICINE [address] [place], [place] [phone] Keke Encinas MD [address] [place] [address] Appointment Request Social History Tobacco Use Types [...] 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 Pt states never getting a call from them. Informed will send message to referrals to check on referral status. Pt agrees with plan. * Telephone Encounter - Lenin Castro - 02/09/2024 11:58 AM EDT Tc from pt requesting to r/s same day appt 02/01. Please contact pt at [phone]. documented in this encounter Plan of Treatment Not on file documented as of this encounter Visit Diagnoses Not on filedocumented in this encounter Additional Health Concerns Assessment Noted Time PHQ-9 Depression Total Score: 12 023 3:42 PM EST documented as of this encounter Care Teams Practicing Urologist Relationship Specialty Start Date End Date Keke Encinas MD [address] [place] [address] PCP - General Internal Medicine 09/24/16 documented as of this encounter
--- OUTSIDE RECORDS SUMMARY | 2025-08-30 12:18 | XMS_ITS | Encounter Summary ---
Author Organization [employer] Address 75 [facility] 7 [place] [address] Care Team Providers Care Termite Control Technician Name Role Phone Keke Encinas MD Primary Care Provider [phone] Reason for Visit * Reason Onset Date Comments Appointment Request 03/15/2024 Encounter Details Date Type Department Care Team (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 Please contact pt at [phone]. * Telephone Encounter - Pebbles Baumann RN [...] documented as of this encounter Care Teams Termite Control Technician Relationship Specialty Start Date End Date Keke Encinas MD [address] [place] [address] PCP - General Internal Medicine 09/24/16 documented as of this encounter
--- OUTSIDE RECORDS SUMMARY | 2025-08-30 12:19 | XMS_ITS | Encounter Summary ---
Author Organization [employer] Address [address] [place] [address] 7 [place] [address] Care Team Providers Care Gallery Manager Name Role Phone Keke Encinas MD Primary Care Provider [phone] Encounter Details Date Type Department Care Team ([facility] st Contact Info) Description 10/14/2022 Orders Only [facility] MEDICINE [address] [place], [place] [phone] Flor Dutton MD [address] [place], [place] [phone] Pain (Primary Dx) Social History Tobacco Use [...] pain documented in this encounter Care Teams Gallery Manager Relationship Specialty Start Date End Date Keke Encinas MD [address] [place] [address] PCP - General Internal Medicine 09/24/16 documented as of this encounter
--- OUTSIDE RECORDS SUMMARY | 2025-08-30 12:19 | XMS_ITS | Encounter Summary ---
Author Organization [employer] Address [address] [place] [address] 7 [place] [address] Care Team Providers Care Specialty Plant Supervisor Name Role Phone Keke Encinas MD Primary Care Provider [phone] Reason for Visit * Reason Comments Med Refill Encounter Details Date Type Department Care Team ([facility] st Contact Info) Description 06/30/2023 Refill [facility] MEDICINE [address] [place], [place] [phone] Keke Encinas MD [address] [place] [address] Social History Tobacco Use Types Packs/Day Years Used Date Smoking Tobacco: Never Sex and Gender Information Value Date Recorded Sex Assigned at Male 09/02/2022 10:15 AM EDT Legal Sex Male 10:15 AM EDT Gender Identity Choose not to disclose 10:15 AM EDT Sexual Orientation Choose not to disclose 2021 10:15 AM EDT 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
--- OUTSIDE RECORDS SUMMARY | 2025-08-30 12:19 | XMS_ITS | Encounter Summary ---
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 Not [...] Trouble relaxing 3 09/10/2023 3:42 PM Rashaad Narvaez Being so restless that it is hard [...] Not at all 09/10/2023 3:42 PM EST Betty Szymanskiryrobert Feeling tired or having little energy Several days 09/10/2023 3:42 PM EST Rashaad Szymanski Poor appetite or overeating Several days 09/10/2023 3:42 PM EST Betty Szymanskiryrobert Feeling bad about yourself - or that [...] way Not at all 09/10/2023 3:42 PM Rahsaad Elena Patient Health Questionnaire-9 Score 12 09/10/2023 3:42 PM Rashaad Elena documented as of this encounter Plan of Treatment Not on file documented as of this encounter Procedures Procedure Name Priority Date/Time Associated Diagnosis Comments COLONOSCOPY Routine 12/23/2017 documented in this encounter Results * Colonoscopy (12/23/2017) Colonoscopy Normal Normal Narrative Roselyn Ba - 12/23/2017 Recommended 3 year follow up [facility] Provider HEALTH MAINTENANCE Final Result documented in this encounter Visit Diagnoses Not on filedocumented in this encounter Care Teams Pedigree Researcher Relationship Specialty Start Date End Date Keke Encinas MD [address] [place] [address] PCP - General Internal Medicine 09/24/16 documented as of this encounter
--- OUTSIDE RECORDS SUMMARY | 2025-08-30 12:19 | XMS_ITS | Clinical Summary ---
Author Organization [facility] Address [address] [facility] [address] [address] [place] [address] Phone Care Team Providers Care Shipping/Receiving Clerk Name Role Phone [facility], [facility] Primary Care Provider Allergies No known active allergies Medications No known medications Immunizations Immunization Administration Dates Next Due Tdap 01/07/2024 Social History Tobacco Use Types Packs/Day Years Used Date Smoking Tobacco: Never Passive Smoke Exposure: Never Tobacco Cessation:Counseling Given: Not Answered Alcohol Use Standard Drinks/Week Comments Yes 0 (1 standard drink = 0.6 oz pur e alcohol) social Education Answer Date Recorded Are you interested in more education? Not on quentin e 01/07/2024 Are you concerned about learning? Not on file 01/07/2024 No 01/07/2024 No 01/07/2024 Digital Access Answer Date Recorded No 01/07/2024 No 01/07/2024 Reliable internet access at home? Not on file 01/07/2024 Device with a working camera? Not on file Intimate Partner Violence Answer Date R ecorded Are you denied basic needs s uch as food, clothing, or medical care? No 01/17/2024 In the past 12 months have y ou been in a relationship with a person who hurts, threatens, or tries to control you? No 01/17/2024 Are you denied basic needs s uch as food, clothing, or medical care? No 01/17/2024 In the past 12 months have y ou been in a relationship with a person who hurts, threatens, or tries to control you? No 01/17/2024 Sex and Gender Information Value Date Recorded Sex Assigned at Male 01/07/2024 10:49 AM EST Legal Sex Male 9:42 PM EDT Gender Identity Male 01/07/2024 10:49 AM EST Sexual Orientation Don't know 01/07/2024 12 :18 PM EST Last Filed Vital Signs Vital Sign Reading Time Taken Comments Blood Pressure 151/80 01/17/2024 1:25 AM EDT Pulse 58 01/17/2024 1:25 AM EDT Temperature 36 C (96.8 F) 01/17/2024 1:25 AM EDT Respiratory Rate 16 01/17/2024 1:25 AM EDT Oxygen Saturation 97% 01/17/2024 1:25 AM EDT Inhaled Oxygen Concentration - - Weight 115.7 kg (255 lb) 01/17/2024 1:25 AM EDT Height 182.9 cm (6') 01/17/2024 1:25 AM EDT Body Mass Index 34.58 01/17/2024 1:25 AM EDT Plan of Treatment Health Maintenance Due Date Last Done Comments LIPID PANEL 1964 DEPRESSION SCREENING 1976 HEPATITIS C SCREENING 1982 HIV ONE-TIME SCREENING (18-65 YEARS) 1982 SMOKING STATUS SCREENING (Once After 26 Yrs) 1990 SCREENING FOR DIABETES 1999 COLOGUARD 2009 COLONOSCOPY 2009 COLORECTAL CANCER SCREENING 2009 FIT TEST 2009 FOBT 2009 SIGMOIDOSCOPY 2009 VIRTUAL COLONOSCOPY 2009 PNEUMOCOCCAL VACCINES (50+ years) (1 of 1 - PCV) 2014 ZOSTER VACCINES (1 of 2) 2014 INFLUENZA VACCINE (#1) 2025 , 08/31/2020, 08/18/2017, Additional history exists COVID-19 VACCINE ( season) 2025 10/22/2021, 10/01/2021 Adult Td,Tdap Booster 01/06/2034 01/07/2024 RSV VACCINE (1 - 1-dose 75+ series) 2039 HEPATITIS A VACCINES Aged Out No long er eligible based on patient's age to complete this topic HIB VACCINES Aged Out No longer eligi ble based on patient's age to complete this topic MENINGOCOCCAL VACCINES (ACWY) Aged Out No longer eligible based on patient's age to complete this topic MENINGOCOCCAL VACCINES (B) Aged Out N o longer eligible based on patient's age to complete this topic Medical Devices Not on file Insurance C3 ACO C3 ACO C3 ACO C3 ACO [facility] C[address] [place] [address] [address] [place] [address] C3 ACO Care Teams Shipping/Receiving Clerk Relationship Specialty Start Date End Date [facility], [facility] [place] [place] [address] PCP - General 01/17/24 Additional Source Comments The information contained in this document represents components of the legal health record. It is not the complete legal health record.[facility]
[2025-08-30 14:30] LABS: MANUAL DIFF FLAG NO
[2025-08-30 14:36] LABS: Hematocrit 44.2 % (42.0-52.0); Hemoglobin 14.6 g/dl (14.0-18.0); Imm Gran Abs Auto 0.01 X10*3/uL (0.00-0.03); Imm Gran Pct Auto 0.2 % (0.0-0.4); Lymphocytes Absolute Auto 1.3 X10*3/uL (1.2-4.9); Mean Corpuscular HGB Conc 33.0 g/dl (31.0-36.0); Mean Corpuscular Hemoglobin 32.2 pg (27.0-33.0); Mean Corpuscular Volume 97.4 fL (80.0-98.0); NRBC Abs Auto 0.000 X10*3/uL (0.0-0.012); NRBC Pct Auto 0.0 /100WBC (0.0-0.2); Platelet Count 234 X10*3/uL (160-400); Red Blood Count 4.54 X10*6/uL (4.60-5.80); White Blood Count 6.1 X10*3/uL (4.8-10.8)
[2025-08-30 14:40] LABS: Alanine Aminotransferase 36 U/L (0-40); Albumin Level 4.3 g/dL (3.5-5.0); Alkaline Phosphatase 97 U/L (39-117); Anion Gap 11 (12-20); Aspartate Amino Transferase 33 U/L (5-37); Blood Urea Nitrogen 15 mg/dL (9-16); Calcium 9.1 mg/dL (8.4-10.2); Carbon Dioxide 26 mmol/L (22-29); Chloride 108 mmol/L (96-108); Cholesterol 199 mg/dL (<200); Estimated Glomerular Filt Rate > 60; HDL Cholesterol 56 mg/dL (>40); Potassium 4.0 mmol/L (3.3-5.1); Sodium 141 mmol/L (135-145); Total Protein 7.2 g/dL (6.5-8.0); Triglycerides 97 mg/dL (<150)
[2025-09-04 16:38] LABS: Testosterone, Free 55.5 pg/mL (35.0-155.0)
== END 2025-08-30 10:11 | disposition home or self-care (01) ==
LOC: HO.CHCLDS 10:10
PROVIDERS: Visit Provider Internal Medicine
DX: Z01.84 Encounter for antibody response examination (principal); M05.741 Rheumatoid arthritis with rheumatoid factor of right hand without organ or systems involvement; M05.742 Rheumatoid arthritis with rheumatoid factor of left hand without organ or systems involvement; E78.2 Mixed hyperlipidemia; R73.01 Impaired fasting glucose; N52.8 Other male erectile dysfunction
CPT/HCPCS: 36415; 80053; 80061; 83036; 84402; 84403; 84443; 85025; 85652; 86140; 86200; 86431

== ENCOUNTER 2025-09-12 07:57 | Outpatient (REF) | payer MEDICAID, SELFPAY ==
--- NOTE | ~2025-09-12 | XR_ITS ---
EXAMINATION: XR ELBOW, RIGHT CLINICAL INFORMATION: right elbow pain COMPARISON: None available. TECHNIQUE: AP, lateral, and oblique views of the right elbow. FINDINGS: Osteophyte formation and soft tissue calcifications involving the lateral and to a lesser extent medial epicondyles of the humerus and the olecranon and coracoid processes of the ulna and the radial head. Small exostosis at the triceps tendon insertion. No gross joint effusion. No acute fracture or dislocation. No subcutaneous emphysema. XR/XR elbow RT min 3V IMPRESSION: Degenerative changes, right elbow. Enthesopathy, triceps tendon. Electronically signed by: Keaton Granado MD 09/12/2025 09:15 AM RENATO
--- NOTE | ~2025-09-12 | XR_ITS ---
EXAMINATION: XR HAND, RIGHT CLINICAL INFORMATION: right hand pain COMPARISON: May 14, 2024. TECHNIQUE: PA, lateral, and oblique views of the right hand. FINDINGS: Joint space narrowing involving the proximal and distal interphalangeal joints of the digits with small marginal osteophyte formation. Well-corticated the abnormality is in the distal aspect of the proximal phalanges of the digits. Bony erosions and subchondral cyst formation at the first and second and to a lesser extent third metacarpophalangeal joints. No acute fracture or dislocation. No subcutaneous emphysema. No metallic or radiopaque foreign body. XR/XR hand RT min 3V IMPRESSION: Osteoarthrosis/osteoarthritis, moderate to severe.. Electronically signed by: Keaton Granado MD 09/12/2025 09:19 AM RENATO JOHNSON
--- NOTE | ~2025-09-12 | XR_ITS ---
EXAMINATION: XR RIBS, RIGHT CLINICAL INFORMATION: right lower thoracic wall pain exacerbated by movements. COMPARISON: Correlated to chest x-ray dated August 04, 2025. TECHNIQUE: Oblique views, right hemithorax. FINDINGS: No acute deformity in the ribs of the right hemithorax. Multilevel spondylosis, axial skeleton. No gross pneumothorax, right hemithorax. XR/XR ribs RT 2V IMPRESSION: No acute displaced rib fracture, right hemithorax. Multilevel spondylosis. Consider seronegative arthritis. Electronically signed by: Keaton Granado MD 09/12/2025 09:16 AM RENATO JOHNSON
--- OUTSIDE RECORDS SUMMARY | 2025-09-12 08:01 | XMS_ITS | Encounter Summary ---
Author Organization [employer] Address [address] [facility] 7 [place] [address] Care Team Providers Care Special Delivery Messenger Name Role Phone Keke Encinas MD Primary Care Provider [phone] Reason for Visit * Reason Onset Date Comments Med Refill 01/08/2023 Encounter Details Date Type Department Care Team ([facility] Contact Info) Description 01/08/2023 Telephone [facility] CHC MED & PEDS [address] [place], [place] [phone] Keke Encinas MD [address] [place] [address] Med Refill Social History Tobacco Use Types Packs/Day Years Used Date Smoking Tobacco: Never Assessed Sex and Gender Information Value Date Recorded Sex Assigned at Male 09/02/2022 10:15 AM EDT Legal Sex Male 10:15 AM EDT Gender Identity Choose not to disclose 10:15 AM EDT Sexual Orientation Straight 08/31/2025 4: 24 PM EDT COVID-19 Exposure Response Date Recorded In [...] states pt never receivemedication. Please sent to [facility]/pharmacy #[id number] - [place] - [address] [place] [address] documented in this encounter Plan of Treatment Not on file documented as of this encounter Visit Diagnoses Not on filedocumented in this encounter Care Teams Special Delivery Messenger Relationship Specialty Start Date End Date Keke Encinas MD [address] [place] [address] PCP - General Internal Medicine 09/24/16 documented as of this encounter
--- OUTSIDE RECORDS SUMMARY | 2025-09-12 08:01 | XMS_ITS | Clinical Summary ---
Author Organization [facility] Address [address] [facility] [address] [place] [address] Phone Care Team Providers Care Application Dba Name Role Phone [facility], [facility] Primary Care Provider Allergies No known active [...] ACO C3 ACO C3 ACO C3 ACO [facility] [address] [place] [address] [address] [place] [address] C3 ACO Care Teams Application Dba Relationship Specialty Start Date End Date [facility], [place] [place] [address] PCP - General 01/17/24 Additional Source Comments The information contained in this document represents components of the legal health record. It is not the complete legal health record.[facility]
--- OUTSIDE RECORDS SUMMARY | 2025-09-12 08:01 | XMS_ITS | Encounter Summary ---
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 [...] half the days 09/10/2023 3:42 PM EST Betty Szymanskirynuhae Feeling down, depressed, or hopeless Nearly every day 09/10/2023 3:42 PM EST Betty Szymanskirylerita Trouble falling or staying asleep, or sleeping too much Not at all 09/10/2023 3:42 PM EST Betty Szymanskirylee Feeling tired or having little energy Several days 09/10/2023 3:42 PM EST Betty Szymanskiryrobert Poor appetite or overeating Several days 09/10/2023 3:42 PM EST Betty Szymanskirynuhae Feeling bad about yourself - or that [...] days 09/10/2023 3:42 PM EST Rashaad Szymanski Thoughts that you would be better off [...] up Historical Provider HEALTH MAINTENANCE Final Result documented in this encounter Visit Diagnoses Not on filedocumented in this encounter Care Teams Tire Service Technician Relationship Specialty Start Date End Date Keke Encinas MD [address] [place] [address] PCP - General Internal Medicine 09/24/16 documented as of this encounter
--- OUTSIDE RECORDS SUMMARY | 2025-09-12 08:01 | XMS_ITS | Encounter Summary ---
Author Organization [employer] Address [address] [facility] 7 [place] [address] Care Team Providers Care Shell Press Operator Name Role Phone Keke Encinas MD Primary Care Provider [phone] Reason for Visit * Reason Onset Date Comments Referral 03/22/2024 Encounter Details Date Type Department Care Team (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 * Telephone Encounter - Lenin Castro - 03/22/2024 11:29 AM EDT TC from pt requesting new referral: Address: [address] [place] [address] [address], [place] [address] Facility Name: [facility]. Type of Specialist: Orthopedics documented in this encounter Plan of Treatment Not on file documented as of this encounter Visit Diagnoses Not on filedocumented in this encounter Additional Health Concerns Assessment Noted Time PHQ-9 Depression Total Score: 12 023 3:42 PM EST documented as of this encounter Care Teams Shell Press Operator Relationship Specialty Start Date End Date Keke Encinas MD [address] [place] [address] PCP - General Internal Medicine 09/24/16 documented as of this encounter
--- OUTSIDE RECORDS SUMMARY | 2025-09-12 08:01 | XMS_ITS | Encounter Summary ---
Author Organization [employer] Address [address] [facility] 7 [place] [address] Care Team Providers Care Fittings Tightener Name Role Phone Keke Encinas MD Primary Care Provider [phone] Reason for Visit * Reason Onset Date Comments Medication Question 01/08/2023 Encounter Details Date Type Department Care Team ([facility] Contact Info) Description 01/08/2023 Telephone [facility] CHC MED & PEDS [address] [place] [address] Keke Encinas MD [address] [place] [address] Medication Question Social History Tobacco Use Types [...] EST Return call placed to pt via [employer] vegetable buncher regarding message below. Pt states he is [...] pt medication questions. Please contact pt at [phone] documented in this encounter Plan of Treatment Not on file documented as of this encounter Visit Diagnoses Not on filedocumented in this encounter Care Teams Fittings Tightener Relationship Specialty Start Date End Date Keke Encinas MD [address] [place] [address] PCP - General Internal Medicine 09/24/16 documented as of this encounter
--- OUTSIDE RECORDS SUMMARY | 2025-09-12 08:01 | XMS_ITS | Encounter Summary ---
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
--- OUTSIDE RECORDS SUMMARY | 2025-09-12 08:01 | XMS_ITS | Encounter Summary ---
Author Organization [employer] Address [address] [place] [address] 7 [place] [address] Care Team Providers Care Modern Greek Studies Professor Name Role Phone Keke Encinas MD Primary Care Provider [phone] Encounter Details Date Type Department Care Team (Late st Contact Info) Description 10/14/[address] [facility] MEDICINE [address] [place], [place] [phone] Flor Dutton MD [address] [place], [place] [phone] Pain (Primary Dx) Social History Tobacco Use Types Packs/Day Years Used Date Smoking Tobacco: Never Assessed Sex and Gender Information Value Date Recorded Sex Assigned at Male 09/02/2022 10:15 AM EDT Legal Sex Male 10:15 AM EDT Gender Identity Choose not to disclose 10:15 AM EDT Sexual Orientation Straight 08/31/2025 4: 24 PM EDT documented as of this encounter Plan of Treatment Not on file documented as of this encounter Visit Diagnoses Diagnosis Pain- Primary Generalized pain documented in this encounter Care Teams Modern Greek Studies Professor Relationship Specialty Start Date End Date Keke Encinas MD [address] [place] [address] PCP - General Internal Medicine 09/24/16 documented as of this encounter
--- OUTSIDE RECORDS SUMMARY | 2025-09-12 08:01 | XMS_ITS | Clinical Summary ---
Author Organization [employer] Address [address] [facility] 7t [place] [address] Care Team Providers Care Doctor Naturopathic Name Role Phone Keke Encinas MD Primary Care Provider [phone] Allergies No known active allergies Medications * [...] abut elderly mother who lives alone in [place]. Provided space for Jorge to vent and [...] treatment engagement. PLAN: 1. Follow up with [facility]: Not recommended for follow-up 2. Patient goal is improve mental health 3. Behavioral Recommendations a. Ind. Therapy, referral will be submitted. b. Medication Management, referral will be submitted c. Use of coping skills provide as recommended d. [facility] contact information for extra support. Moderate depressive disorder 09/10/2023 Rheumatoid arthritis involvi ng both hands with positive rheumatoid factor (CMS/HCC) 08/13/2023 Obesity (BMI 30-39.9) 01/10/2016 Elevated fasting glucose 01/10/2016 Hyperlipidemia 01/10/2016 Hypertensive disorder 01/10/2016 Obstructive sleep apnea syndrome 01/10/2016 Encounters Date Type Department Care Team Description 09/08/2025 Telephone [facility] MED & PEDS [address] [place] [address] Keke Encinas MD Prior Authorization 09/04/2025 Results Follow-Up [facility] MED & PEDS [address] [place] [address] Keke Encinas MD CBC auto differential, Comprehensive Metabolic Panel, Lipid Panel, Standard, Additional followed-up results: 7 08/30/2025 9:30 AM EDT Office Visit [facility] MED & PEDS [address] [place] [address] Keke Encinas MD Chronic pain of right knee (Primary Dx); Primary hypertension; Mixed hyperlipidemia; Elevated fasting glucose; Rheumatoid arthritis involving both hands with positive rheumatoid factor (CMS/HCC) (HCC); Right elbow pain; Other male erectile dysfunction; Onychomycosis; Encounter for immunization; Dietary counseling; Exercise counseling; Class 1 obesity due to excess calories with serious comorbidity and body mass index (BMI) of 32.0 to 32.9 in adult 08/30/2025 Travel 08/27/2025 Telephone [facility] [address] [place] [phone] Keke Encinas MD Chart Prep 08/19/2025 Patient Outreach [address] [address] Keke Encinas MD Pre-visit Planning (SDOH screening completed on 07/19/25 ) 08/09/2025 Outside Procedure [facility] [address] [place] [phone] Hyacinth Cannon, OD Presbyopia (Primary Dx) 08/04/2025 1:30 PM EDT Office Visit [facility] [address] [place] [phone] Hyacinth Cannon, OD Regular astigmatism of both eyes (Primary Dx) 08/04/2025 Orders Only GENERIC EXTERNAL DATA DEPARTMENT Provider, Generic External Data 07/26/[address] [address] Keke Encinas MD No Show 07/25/2025 Telephone [facility] [address] [place], [place] [phone] Keke Encinas MD chart prep 07/19/2025 Patient Outreach [address] [address] Keke Encinas MD Care Coordination ([facility] outreach for SDOH housing search-referral completed ) 07/19/2025 Patient Outreach [address] [address] Keke Encinas MD Pre-visit Planning (SDOH screening positive and Tobacco screening negative) 06/13/2025 2:00 PM EDT Office Visit [facility] [address] [place] [phone] Hyacinth Cannon, OD Combined forms of age-related [...] with others, in a hotel, in a [place], living outside on the street, on a [...] 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 [...] 12/23/2017 Colorectal Cancer Screening 12/23/2020 COVID-19 Vaccine ( - season) 2025 10/22/2021, 10/01/2021 SDOH Screening 07/19/2026 07/19/2025 Tobacco Screening 07/25/2026 07/25/2025 Alcohol/Substance Use Screening 08/30/2026 08/30/2025 Depression Screening 08/30/2026 08/30/2025, 08/30/20 25 Disability Screening 08/30/2026 08/30/2025 Lipid Panel 08/30/2030 08/30/2025, 07/1 11/2022, 08/29/2020 DTaP/Tdap/Td Vaccines (2 - Td or [...] Procedure Name Priority Date/Time Associated Diagnosis Comments TESTOSTERONE, FREE (DIALYSIS) AND TOTAL,MS Routine 08/30/2025 10:13 AM EDT Other male erectile dysfunction C-REACTIVE PROTEIN Routine 08/30/2025 10 :13 AM EDT Rheumatoid arthritis involving both hands with positive rheumatoid factor (CMS/HCC) (HCC) SED RATE BY MODIFIED WESTERGREN Routine 08/30/2025 10:13 AM EDT Rheumatoid arthritis involving both hands with positive rheumatoid factor (CMS/HCC) (HCC) CYCLIC CITRULLINATED PEPTIDE (CCP) AB (IGG) Routine 08/30/2025 10:13 AM EDT Rheumatoid arthritis involving both hands with positive rheumatoid factor (CMS/HCC) (HCC) RHEUMATOID FACTOR Routine 08/30/2025 10: 13 AM EDT Rheumatoid arthritis involving both hands with positive rheumatoid factor (CMS/HCC) (HCC) TSH W/REFLEX TO FT4 Routine 08/30/2025 1 0:13 AM EDT Mixed hyperlipidemia Elevated fasting glucose LIPID PANEL, STANDARD Routine 08/30/2025 10:13 AM EDT Mixed hyperlipidemia Elevated fasting glucose COMPREHENSIVE METABOLIC PANEL Routine 08/30/2025 10:13 AM EDT Elevated fasting glucose CBC WITH AUTO DIFFERENTIAL Routine 08/30/2025 10:13 AM EDT Rheumatoid arthritis involving both hands with positive rheumatoid factor (CMS/HCC) (HCC) HEMOGLOBIN A1C Routine 08/30/2025 9:51 AM EDT Elevated fasting glucose CTA CHEST PE PROTOCAL Routine 08/04/2025 11:56 AM EDT D DIMER HIGH SENSITIVITY Routine 08/04/2025 10:12 AM EDT HIGH SENSITIVITY TROPONIN I Routine 08/04/2025 8:54 AM EDT BASIC METABOLIC PANEL Routine 08/04/2025 8:54 AM EDT CBC WITH AUTO DIFFERENTIAL Routine 08/04/2025 8:54 AM EDT XR CHEST 2 VIEWS Routine 08/04/2025 8:50 AM EDT ZZZ HISTORICAL HEPATITIS A,B,C PROFILE Routine 08/28/2021 7:39 AM EDT HM COLONOSCOPY Routine 12/23/2017 from Last 3 Months or Most Recently Relevant to Health Maintenance Results * TSH with Reflex to Free T4 (08/30/2025 10:13 AM EDT) TSH reflex Free T4 1.42 0.32 - 4.0 uIU/mL [facility] Blood Venous blood specimen / Unknown 08/30/2025 10:13 AM EDT 08/30/2025 2:09 PM EDT us Keke Encinas MD LAB BLOOD ORDERABLES Final Result [facility] [address] [place] [phone] * (ABNORMAL) CBC auto differential (08/30/2025 10:13 AM EDT) Only the most recent of2 resultswithin the time period is included. White Blood Count 6.1 4.8 - 10.8 X10*3/uL [facility] Red Blood Count 4.54(L) 4.60 - 5.80 X10*6/uL [facility] Hemoglobin 14.6 14.0 - 18.0 g/dl [facility] Hematocrit 44.2 42.0 - 52.0 % [facility] Mean Corpuscular Volume 97.4 80.0 - 98.0 fL [facility] Mean Corpuscular Hemoglobin 32.2 27.0 - 33.0 pg [facility] Mean Corpuscular HGB Conc 33.0 31.0 - 36.0 g/dl [facility] Red Cell Distribution Width 13.4 11.0 - 16.0 % [facility] Platelet Count 234 160 - 400 X10*3/uL [facility] Mean Platelet Volume 9.8 9.4 - 12.4 fL [facility] Neutrophils Percent Auto 66.5 45 - 73 % [facility] Imm Gran Pct Auto 0.2 0.0 - 0.4 % [facility] Lymphocytes Percent Auto 21.5 20 - 40 % [facility] Monocytes Percent Auto 9.6 2 - 11 % [facility] Eosinophils Percent Auto 1.5 0 - 4 % [facility] Basophils Percent Auto 0.7 0 - 2 % [facility] NRBC Pct Auto 0.0 0.0 - 0.2 /100WBC [facility] Neutrophils Absolute Auto 4.0 2.0 - 8.3 x10*3/uL [facility] Imm Gran Abs Auto 0.01 0.00 - 0.03 X10*3/uL [facility] Lymphocytes Absolute Auto 1.3 1.2 - 4.9 X10*3/uL [facility] Monocytes Absolute Auto 0.6 0.1 - 1.2 X10*3/uL [facility] Eosinophils Absolute Auto 0.1 0.0 - 0.4 X10*3/uL [facility] Basophils Absolute Auto 0.0 0.0 - 0.2 X10*3/uL [facility] NRBC Abs Auto 0.000 0.0 - 0.012 X10*3/uL [facility] Blood Venous blood specimen / Unknown 08/30/2025 10:13 AM EDT 08/30/2025 2:21 PM EDT us Keke Encinas MD LAB BLOOD ORDERABLES Final Result Performing Organization Address [facility] Co de Phone Number [facility] [address] [place] [phone] * Cyclic Citrullinated Peptide (CCP) Antibody (IgG) (08/30/2025 10:13 AM EDT) Cyclic Citrullinated Peptide <16 UNITS [facility] Comment:Reference RangeNegat eliezer: <20Weak Positive: 20-39Moderate Positive: 40-59Strong Positive: >59THIS TEST WAS PERFORMED AT:[facility] [address] [id number] ISABEL MD Blood Venous blood specimen / Unknown 08/30/2025 10:13 AM EDT 08/30/2025 2:09 PM EDT us Keke Encinas MD LAB BLOOD ORDERABLES Final Result Performing Organization Address [facility] Co de Phone Number [facility] [address] [place] [phone] * Sed Rate by Mack Garg (08/30/2025 10:13 AM EDT) Erythrocyte Sedimentation Rate 3 0 - 15 MM/HR [facility] Comment:Patients with polycy themia and many hemoglobin abnormalitiesmay have depressed sed rates whereas patients with anemiamay have elevated sed rates. Blood Venous blood specimen / Unknown 08/30/2025 10:13 AM EDT 08/30/2025 2:30 PM EDT Keke Encinas MD LAB BLOOD ORDERABLES Final Result Performing Organization Address City/[facility]/ZIP Co de Phone Number [facility] [address] [place] [phone] * (ABNORMAL) Rheumatoid Factor (08/30/2025 10:13 AM EDT) Rheumatoid Factor 43.5(H) <15.0 IU/mL [facility] Blood Venous blood specimen / Unknown 08/30/2025 10:13 AM EDT 08/30/2025 2:09 PM EDT Keke Encinas MD LAB BLOOD ORDERABLES Final Result Performing Organization Address [facility] Phone Number [facility] [address] [place] [phone] * Testosterone, Free (Dialysis) And Total, MS (08/30/2025 10:13 AM EDT) Testosterone, Total 427 250 - 1100 ng/dL [facility] Comment:For additional infor mation, please refer tohttp://education.SpotHero/faq/[email or web address](This link is being provided for informational/educational purposes only.)This test was developed and its analytical performancecharacteristics have been determined by [employer] [place], [place]. It hasnot been cleared or approved by the U.S. Food and DrugAdministration. This assay has been validated pursuantto the CLIA regulations and is used for clinicalpurposes. Testosterone, Free 55.5 35.0 - 155.0 pg/mL [facility] Comment:This test was develo ped and its analytical performancecharacteristics have been determined by [employer] [place], [place]. It hasnot been cleared or approved by the U.S. Food and DrugAdministration. This assay has been validated pursuantto the CLIA regulations and is used for clinicalpurposes.THIS TEST WAS PERFORMED AT:[facility] [place] [address]HMDFOHCNANCI SIMS MD,PHD Blood Venous blood specimen / Unknown 08/30/2025 10:13 AM EDT 08/30/2025 2:09 PM EDT us Keke Encinas MD LAB BLOOD ORDERABLES Final Result Performing Organization Address City/[facility]/ZIP Co de Phone Number [facility] [address] [place] [phone] * C-reactive Protein (08/30/2025 10:13 AM EDT) C Reactive Protein 0.39 < or = 0.50 mg/dL [facility] Blood Venous blood specimen / Unknown 08/30/2025 10:13 AM EDT 08/30/2025 2:09 PM EDT us Keke Encinas MD LAB BLOOD ORDERABLES Final Result Performing Organization Address City/[facility]/ZIP Co de Phone Number [facility] [address] [place] [phone] * (ABNORMAL) Lipid Panel, Standard (08/30/2025 10:13 AM EDT) Triglycerides 97 <150 mg/dL [facility] Comment:Desirable Triglyceri de: less than 150 mg/dLBorderline High Triglyceride 150-199 mg/dLHigh Triglyceride: 200-499 mg/dLVery High Triglyceride: greater than or equal to 5OO mg/dL Cholesterol 199 <200 mg/dL [facility] Comment:Desirable Cholestero l: less than 200 mg/dLBorderline High Cholesterol: 200-239 mg/dLHigh Cholesterol: greater than 239 mg/dL LDL Cholesterol Calculated 124(H) <100 mg/dL [facility] Comment:Desirable LDL: less than 100 mg/dLNear Optimal/Above Optimal LDL: 110- 129 mg/dLBorderline High LDL: 130-159 mg/dLHigh LDL: 160-189 mg/dLVery High LDL: greater than or equal to 190 mg/dL HDL Cholesterol 56 >40 mg/dL [facility] Comment:Desirable HDL: great er than 40 mg/dL Note: This HDL assay may give artificially low results in patients with liver disease. Blood Venous blood specimen / Unknown 08/30/2025 10:13 AM EDT 08/30/2025 2:09 PM EDT us Keke Encinas MD LAB BLOOD ORDERABLES Final Result [facility] [address] [place] [phone] * (ABNORMAL) Comprehensive Metabolic Panel (08/30/2025 10:13 AM EDT) Sodium 141 135 - 145 mmol/L [facility] Potassium 4.0 3.3 - 5.1 mmol/L [facility] Chloride 108 96 - 108 mmol/L [facility] Carbon Dioxide 26 22 - 29 mmol/L [facility] Anion Gap 11(L) 12 - 20 [facility] Urea Nitrogen (BUN) 15 9 - 16 mg/dL [facility] Creatinine, Serum 0.87 0.5 - 1.4 mg/dL [facility] Estimated Glomerular Filt Rate >60 [facility] Comment:Chronic Kidney Disea se: Estimated GFR < 60 mL/min/1.11j0Cdyklq Kidney Disease: Estimated GFR < 15 mL/min/1.73m2 Glucose 87 60 - 115 mg/dL [facility] Calcium 9.1 8.4 - 10.2 mg/dL [facility] Bilirubin, Total 0.6 0.0 - 1.0 mg/dL [facility] Aspartate Amino Transferase 33 5 - 37 U/L [facility] Alanine Aminotransferase 36 0 - 40 U/L [facility] Total Protein 7.2 6.5 - 8.0 g/dL [facility] Albumin Level 4.3 3.5 - 5.0 g/dL [facility] Alkaline Phosphatase 97 39 - 117 U/L [facility] Blood Venous blood specimen / Unknown 08/30/2025 10:13 AM EDT 08/30/2025 2:09 PM EDT us Keke Encinas MD LAB BLOOD ORDERABLES Final Result Performing Organization Address City/[facility] Co de Phone Number [facility] [address] [place] [phone] * Hemoglobin A1c (08/30/2025 9:51 AM EDT) Hemoglobin A1c 5.3 <6.0 % [facility] Comment:Hemoglobin A1C Refer ence Range Adults: 4.8 - 6.0 % Non diabetic: < 6.0 % Goal: < 7.0 %Additional Action Suggested: > 8.0 %Note: Hemoglobin A1c results are invalid for patients with abnormal amounts of HbF. Blood transfusions may impact the HbA1c concentration in the patient sample. Estimated Average Glucose 105 mg/dL [facility] Comment:eAG = Estimated ave rage glucose which is %A1C expressed asaverage glucose, using the formula of the Z5W-QmtettwHrhqpji Glucose study (ADAG), Diabetes Care, Vol.31,#8,Jun. 2007 Blood Venous blood specimen / Unknown 08/30/2025 9:51 AM EDT 08/30/2025 2:21 PM EDT us Keke Encinas MD LAB BLOOD ORDERABLES Final Result Performing Organization Address [facility] Co de Phone Number [facility] [address] [place] [phone] * CTA Chest PE Protocal (08/04/2025 11:56 AM EDT) Anatomical Region Laterality Modality Body, Chest Computed Tomogra phy 08/04/2025 11:5 6 AM EDT Narrative 08/04/2025 12:48 PM EDT [place] [address] [address] Scan Report Signed with Helen Patient: Jorge Szymanski MR#: [id number] 8 : 1965 Acct:[id number] Age/Sex: 59 / M ADM Date: 08/04/25 Loc: HO.ED Attending Dr: Ordering Physician: Bianca Valera Date of Service: 08/04/25 Procedure(s): CT angio chest PE protocol Accession Number(s): [id number] cc: Keke Encinas MD; Bianca Valera Report Number: [id number]: Total DLP = 460.00 mGy-cm Reason for [...] 08/04/25 1245 DD/ 1156 TD/TT: 08/04/25 1233 Metal Cutter: Procedure Note Donotuseinterpreter, Image - 08/04/[address] [place] [address] [address] Scan Report Signed with Helen Patient: Jorge Szymanski AMR#: [id number] 8 : 1965Acct:[id number] Age/Sex: 59 / MADM Date: 08/04/25 Loc: .ED Attending Dr: Ordering Physician: Bianca Valera Date of Service: 08/04/25 Procedure(s): CT angio chest PE protocol Accession Number(s): [id number] cc: Keke Encinas MD; Bianca Valera Report Number: [id number]: Total DLP = 460.00 mGy-cm Reason for [...] Mercedes MD in OV> 08/04/25 1245 DD/ 115 TD/TT: 08/04/25 1233 Metal Cutter: [facility] External Provider IMG CT PROCEDURES Edited Result - Final * D Dimer High Sensitivity (08/04/2025 10:12 AM EDT) [facility] D Dimer High Sensitivity 814 NG/ML [facility] Comment:D-DIMER HS REFERENCE RANGENote: Our [...] ORDERAB LES Final Result Performing Organization Address [facility] Co de Phone Number [facility] [address] [place] [phone] * High Sensitivity Troponin I (08/04/2025 8:54 AM EDT) [facility] TROPONIN I HIGH SENSITIVITY <2.7 <3.5 - 35.0 ng/L [facility] Comment:The [place] high sens itivity Troponin-I results should beused in conjunction with other diagnostic information suchas ECG, clinical observations and information, and patientsymptoms to aid in the diagnosis of PA. 08/04/2025 8:54 AM EDT 08/04/2025 10:19 AM EDT Generic External Data Provider LAB BLOOD ORDERAB LES Final Result Performing Organization Address [facility]/ZIP Co de Phone Number [facility] [address] [place] [phone] * Basic Metabolic Panel (08/04/2025 8:54 AM EDT) [facility] Sodium 139 135 - 145 mmol/L [facility] Potassium 4.6 3.3 - 5.1 mmol/L [facility] Chloride 104 96 - 108 mmol/L [facility] Carbon Dioxide 28 22 - 29 mmol/L [facility] Anion Gap 12 12 - 20 [facility] Urea Nitrogen (BUN) 14 9 - 16 mg/dL [facility] Creatinine, Serum 0.81 0.5 - 1.4 mg/dL [facility] Creatinine Clr Calc Pharmacy 123.6 [facility] Comment:eGFR (calculated fro m the MDRD study equation) and eCrCl(calculated from the Cockcroft-Gault equation) are based ondifferent parameters and may not yield comparable results.If eCrCl result is absurd, please check patient'sheight/weight. Estimated Glomerular Filt Rate >60 [facility] Comment:Chronic Kidney Disea se: Estimated GFR < 60 mL/min/1.01a1Xqxwlt Kidney Disease: Estimated GFR < 15 mL/min/1.73m2 Glucose 100 60 - 115 mg/dL [facility] Calcium 9.1 8.4 - 10.2 mg/dL [facility] 08/04/2025 8:54 AM EDT 08/04/2025 8:56 AM EDT us Generic External Data Provider LAB BLOOD ORDERAB LES Final Result Performing Organization Address City/State/[facility] Co de Phone Number [facility] [address] [place] [phone] * XR Chest 2 Views (08/04/2025 8:50 AM EDT) Anatomical Region Laterality Modality Chest Radiographic Keena ging 08/04/2025 8:50 AM EDT Narrative 08/04/2025 9:20 AM EDT [address] [address] XRay Report Signed Patient: Jorge Szymanski MR#: [id number] 8 : 1965 Acct:[id number] Age/Sex: 59 / M ADM Date: 08/04/25 Loc: HO.ED Attending Dr: Ordering Physician: Mohan Lopez DO Date of Service: 08/04/25 Procedure(s): XR chest 2V Accession Number(s): [id number] cc: Keke Encinas MD; Mohan Lopez DO [...] 08/04/25 0917 DD/ 0850 TD/TT: 08/04/25 0852 Metal Cutter: Procedure Note Donotuseinterpreter, Image - 08/04/2025 [place] [address] XRay Report Signed Patient: Jorge Szymanski AMR#: [id number] 8 : 1965Acct:[id number] Age/Sex: 59 / MADM Date: 08/04/25 Loc: .ED Attending Dr: Ordering Physician: Mohan Lopez DO Date of Service: 08/04/25 Procedure(s): XR chest 2V Accession Number(s): [id number] cc: Keke Encinas MD; Mohan Lopez DO [...] Lee MD in OV> 08/04/25916 DD/ TD/TT: 08/04/2552 Metal Cutter: [facility] External Provider IMG XR PROCEDURES Edited Result - Final * Hepatitis A,B,C Profile (08/28/2021 7:39 AM [...] Historical Provider HISTORICAL/NON ORDERABLE LABS Final Result [facility] [address] * Colonoscopy (12/23/2017) Colonoscopy Normal Normal Narrative Roselyn Ba - 12/23/2017 Recommended 3 year follow up Historical Provider HEALTH MAINTENANCE Final Result from Last 3 Months or Most Recently Relevant to Health Maintenance [place] [address] [place] [address] C3 Care Teams Doctor Naturopathic Relationship Specialty Start Date End Date Keke Encinas MD [address] [place] [phone] PCP - General Internal Medicine 09/24/16
--- OUTSIDE RECORDS SUMMARY | 2025-09-12 08:01 | XMS_ITS | Encounter Summary ---
Author Organization [employer] Address [address] [facility] 7 [place] [address] Care Team Providers Care Bad Work Gatherer Name Role Phone Keke Encinas MD Primary Care Provider [phone] Reason for Visit * Reason Onset Date Comments Appointment Request 02/09/2024 Encounter Details Date Type Department Care Team ([facility] Contact Info) Description 02/09/2024 Telephone [facility] MEDICINE [address] [place] [address] Keke Encinas MD [address] [place] [address] Appointment Request Social History Tobacco Use Types [...] 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 Pt states never getting a call from them. Informed will send message to referrals to check on referral status. Pt agrees with plan. * Telephone Encounter - Lenin Castro - 02/09/2024 11:58 AM EDT Tc from pt requesting to r/s same day appt 02/01. Please contact pt at [phone]. documented in this encounter Plan of Treatment Not on file documented as of this encounter Visit Diagnoses Not on filedocumented in this encounter Additional Health Concerns Assessment Noted Time PHQ-9 Depression Total Score: 12 023 3:42 PM EST documented as of this encounter Care Teams Bad Work Gatherer Relationship Specialty Start Date End Date Keke Encinas MD [address] [place] [address] PCP - General Internal Medicine 09/24/16 documented as of this encounter
--- OUTSIDE RECORDS SUMMARY | 2025-09-12 08:01 | XMS_ITS | Encounter Summary ---
Author Organization [employer] Address [address] [place] [address] 7 [place] [address] Care Team Providers Care Geometrician Name Role Phone Keke Encinas MD Primary Care Provider [phone] Reason for Visit * Reason Comments Med Refill Encounter Details Date Type Department Care Team (Late st Contact Info) Description 06/30/2023 Refill 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
--- OUTSIDE RECORDS SUMMARY | 2025-09-12 08:01 | XMS_ITS | Encounter Summary ---
Author Organization [employer] Address [address] [facility] 7 [place] [address] Care Team Providers Care Medical Technologist Blood Bank Name Role Phone Keke Encinas MD Primary Care Provider [phone] Reason for Visit * Reason Onset Date Comments Referral 02/02/2024 Encounter Details Date Type Department Care Team ([facility] Contact Info) Description 02/02/2024 Telephone [facility] MEDICINE [address] [place] [address] Keke Encinas MD [address] [place] [address] Referral Social History Tobacco Use Types Packs/Day [...] 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 Can discuss with provider. * Telephone Encounter - Jose Caputo - 02/02/2024 10:32 AM EDT Tc from patient requesting a referral for [facility] states would like to be seen [...] documented as of this encounter Care Teams Medical Technologist Blood Bank Relationship Specialty Start Date End Date Keke Encinas MD [address] [place] [id number] PCP - General Internal Medicine 09/24/16 documented as of this encounter
--- OUTSIDE RECORDS SUMMARY | 2025-09-12 08:01 | XMS_ITS | Encounter Summary ---
Author Organization [employer] Address [address] [facility] 7 [place] [address] Care Team Providers Care Steel Turner Name Role Phone Keke Encinas MD Primary Care Provider [phone] Reason for Visit * Reason Onset Date Comments Prior Authorization 09/08/2025 Encounter Details Date Type Department Care Team ([facility] Contact Info) Description 09/08/2025 Telephone [facility] MED & PEDS [address] [place] [address] Keke Encinas MD [address] [place] [address] Prior Authorization Social History Tobacco Use Types Packs/Day Years Used Date Smoking Tobacco: Never Depression Answer Date Recorded Patient Health Questionnaire-9 Score 0 08/30/2025 Patient Health Questionnaire-9 Score 0 08/30/2025 Last PHQ-9: Questionnaire Data Not on file 1 Housing Stability Answer Date Recorded What is your housing situation today? 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 Not on file Not on file documented as of this encounter Miscellaneous Notes * Telephone Encounter - Kavita Paiz LPN - 09/08/2025 10:37 AM EST [facility] generated and faxed Tadalafil Pending decision from insurance documented in this encounter Plan of Treatment Not on file documented as of this encounter Visit Diagnoses Not on filedocumented in this encounter Additional Health Concerns Assessment Noted Time PHQ-9 Depression Total Score: 0 08/30/20 25 10:00 AM EDT documented as of this encounter Care Teams Steel Turner Relationship Specialty Start Date End Date Keke Encinas MD [address] [place] [id number] PCP - General Internal Medicine 09/24/16 documented as of this encounter
--- OUTSIDE RECORDS SUMMARY | 2025-09-12 08:01 | XMS_ITS | Encounter Summary ---
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 Please contact pt at [phone]. * Telephone Encounter - Pebbles Baumann RN [...] documented as of this encounter Care Teams Sawyer Cork Slabs Relationship Specialty Start Date End Date Keke Encinas MD [address] [place] [id number] PCP - General Internal Medicine 09/24/16 documented as of this encounter
--- OUTSIDE RECORDS SUMMARY | 2025-09-12 08:01 | XMS_ITS | Encounter Summary ---
Author Organization [employer] Address [address] [place] [address] 7 [place] [address] Care Team Providers Care Director Revenue Name Role Phone Keke Encinas MD Primary Care Provider [phone] Encounter Details Date Type Department Care Team (Latest Contact Info) Description 09/04/2025 Results Follow-Up [facility] CHC MED & PEDS [address] [place] [address] Keke Encinas MD [address] [place] [address] CBC auto differential, Comprehensive Metabolic Panel, Lipid Panel, Standard, Additional followed-up results: 7 Social History Tobacco Use Types Packs/Day Years Used Date Smoking Tobacco: Never Depression Answer Date Recorded Patient Health Questionnaire-9 Score 0 08/30/2025 Patient Health Questionnaire-9 Score 0 08/30/2025 Last PHQ-9: Questionnaire Data Not on file 1 Housing Stability Answer Date Recorded What is your housing situation today? 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 Labs reviewed: Elevated RF. Pt was already referred to rheumatology for evaluation andtreatment. documented in this encounter Plan of Treatment Not on file documented as of this encounter Visit Diagnoses Not on filedocumented in this encounter Additional Health Concerns Assessment Noted Time PHQ-9 Depression Total Score: 0 08/30/20 25 10:00 AM EDT documented as of this encounter Care Teams Director Revenue Relationship Specialty Start Date End Date Keke Encinas MD [address] [place] [id number] PCP - General Internal Medicine 09/24/16 documented as of this encounter
== END 2025-09-12 07:58 | disposition home or self-care (01) ==
LOC: HO.XRAY 07:57
PROVIDERS: PCP Internal Medicine; Visit Provider Internal Medicine
DX: M05.741 Rheumatoid arthritis with rheumatoid factor of right hand without organ or systems involvement (principal); M05.742 Rheumatoid arthritis with rheumatoid factor of left hand without organ or systems involvement; M25.521 Pain in right elbow
CPT/HCPCS: 71100; 73080; 73130

== ENCOUNTER → 2025-09-12 08:06 | Outpatient (BNV) | payer MEDICAID, SELFPAY | PROVIDERS: PCP Internal Medicine; Visit Provider Radiology Diagnostic Radiology | DX: R07.89 Other chest pain (principal); M25.521 Pain in right elbow; M79.641 Pain in right hand | CPT/HCPCS: 71100; 73080; 73130 ==